=== PATIENT | female | born 1970 | race Two or more races ===

== ENCOUNTER 2020-06-26 08:02 | Outpatient (REF) | payer OTHER, SELFPAY ==
[2020-06-26 18:19] LABS: Alanine Aminotransferase 101 U/L (0-31); Albumin Level 4.6 g/dL (3.5-5.0); Alkaline Phosphatase 189 U/L (39-117); Aspartate Amino Transferase 62 U/L (5-31); Bilirubin Direct 0.2 mg/dL (0.0-0.5); Bilirubin Total 0.4 mg/dL (0.0-1.0); Total Protein 7.9 g/dL (6.5-8.0)
== END 2020-06-26 08:03 | disposition home or self-care (01) ==
LOC: CF 08:02
PROVIDERS: PCP Internal Medicine; Referring Provider Nurse Practitioner Family; Visit Provider Physician Assistant
DX: R10.11 Right upper quadrant pain (principal); K59.09 Other constipation
CPT/HCPCS: 36415; 80076; 84443

== ENCOUNTER 2020-06-28 08:12 | Outpatient (REF) | payer OTHER, SELFPAY ==
[2020-06-28 09:37] LABS: Ferritin 27 ng/mL (10-250)
[2020-06-28 09:54] LABS: Gamma Glutamyl Transpeptidase 230 U/L (7-33)
== END 2020-06-28 08:13 | disposition home or self-care (01) ==
LOC: HO.LAB 08:12
PROVIDERS: PCP Internal Medicine; Visit Provider Physician Assistant
DX: R74.8 Abnormal levels of other serum enzymes (principal)
CPT/HCPCS: 82728; 82977

== ENCOUNTER → 2020-07-20 14:37 | Outpatient (BNVA) | payer OTHER, SELFPAY | PROVIDERS: PCP Internal Medicine; Visit Provider Surgery Vascular Surgery | DX: Z76.89 Persons encountering health services in other specified circumstances (principal) ==

== ENCOUNTER 2020-07-27 10:13 | Outpatient (REF) | payer OTHER, SELFPAY ==
--- NOTE | 2020-07-27 10:18 | US_ITS ---
EXAMINATION: RIGHT and LEFT LOWER EXTREMITY VENOUS ULTRASOUND (Reflux Exam) CLINICAL INDICATION: Varicose veins of the right lower extremity with inflammation. COMPARISON: None. TECHNIQUE: Color flow triplex imaging and compression Doppler was performed to evaluate both the deep and the superficial systems bilaterally. To evaluate the superficial system, the examination was performed in the upright position. Color-flow Doppler ultrasound and compression ultrasound were utilized. In addition, maneuvers were utilized to demonstrate reflux. FINDINGS: 1. DEEP VENOUS ULTRASOUND OF THE RIGHT LOWER EXTREMITY: Respiratory variation, normal compression and augmented flow are noted in the right common femoral vein as well as the right popliteal vein and there is no evidence of deep venous thrombosis at these locations. There is no evidence of reflux in the deep system in either the common femoral vein or the popliteal vein. There is no evidence of a popliteal fossa cyst or popliteal artery aneurysm.. 2. SUPERFICIAL ULTRASOUND WITH DOPPLER OF RIGHT LOWER EXTREMITY: The right great saphenous vein at the saphenofemoral junction measures 8 mm, at the mid thigh 3 mm, wdfly-uru-irge 3 mm, ibmhz-[id number]-ssld 2 mm, at mid calf 1 mm and at the ankle measures 2 mm. There is no reflux demonstrated in the right great saphenous vein. The right small saphenous vein measures 2 mm and shows no reflux. Within the proximal and distal calf there are 2 small perforating veins measuring 2 mm in diameter. 3. DEEP VENOUS ULTRASOUND OF THE LEFT LOWER EXTREMITY: Respiratory variation, normal compression and augmented flow are noted in the left common femoral vein as well as the left popliteal vein and there is no evidence of deep venous thrombosis at these locations. There is no evidence of reflux in the deep system in either the common femoral vein or the popliteal vein. . There is no evidence of a Naomi fossa cyst or popliteal artery aneurysm. 4. SUPERFICIAL ULTRASOUND WITH DOPPLER OF LEFT LOWER EXTREMITY: Left great saphenous vein at the saphenofemoral junction measures 8 mm without reflux, at the mid thigh 1 mm with reflux of 1.8 seconds, eurnn-vlj-gjmc 2 mm with reflux of 2.4 seconds, at the knee reflux of 3.5 seconds, svyqp-jow-ccui 2 mm with no reflux, at mid calf 2 mm without reflux, and at the ankle measures 2 mm without reflux.. The left small saphenous vein measures 3 mm and shows no reflux. There is a varicose vein measuring 3 mm in diameter at the saphenofemoral junction which does not demonstrate reflux within it. US/US venous duplex LE BI IMPRESSION: 1. No evidence of reflux or thrombus in the common femoral veins or popliteal veins bilaterally. 2. Left lower extremity venous insufficiency from the proximal thigh to the knee. 3. No right greater saphenous vein insufficiency.
== END 2020-07-27 10:14 | disposition home or self-care (01) ==
LOC: HO.US 10:13
PROVIDERS: Visit Provider Surgery Vascular Surgery
DX: I83.813 Varicose veins of bilateral lower extremities with pain (principal)
CPT/HCPCS: 93970

== ENCOUNTER → 2020-08-22 12:44 | Outpatient (BNVA) | payer OTHER, SELFPAY | PROVIDERS: PCP Internal Medicine; Visit Provider Surgery Vascular Surgery | DX: Z76.89 Persons encountering health services in other specified circumstances (principal) ==

== ENCOUNTER → 2020-08-23 08:27 | Outpatient (BNVA) | payer OTHER, SELFPAY | PROVIDERS: PCP Internal Medicine; Referring Provider Internal Medicine; Visit Provider Physician Assistant | DX: Z76.89 Persons encountering health services in other specified circumstances (principal) ==

== ENCOUNTER 2020-08-29 12:29 | Emergency (ER) | payer OTHER, SELFPAY ==
[2020-08-29 12:37] VITALS: BP 163/72; PULSE 98; RESP 20; TEMP 37.6; O2SAT 100; BMI 24.7
--- NOTE | 2020-08-29 14:29 | ED.FEMALEGU ---
HPI - Female Genitourinary General Chief complaint: Vaginal Bleeding Stated complaint: Vaginal bleeding, painful urination Time Seen by Provider: 08/29/20 13:58 Source: patient Mode of arrival: ambulatory History of Present Illness HPI Narrative: 50-year-old female with a past medical history of chronic constipation, GERD, irregular menses, migraine headaches, urinary incontinence, presented to ED complaining of dysuria and gross hematuria since this morning. Also reports associated urinary frequency/urgency. Denies taking anticoagulation. Denies abdominal pain, nausea/vomiting/diarrhea/constipation, flank pain, vaginal bleeding or rectal bleeding MD elicited complaint: dysuria Related Data Home Medications Medication Instructions Recorded Confirmed cholecalciferol (vitamin D3) 50 50 mcg PO DAILY 06/20/20 08/23/20 mcg (2,000 unit) tablet docusate sodium 100 mg capsule 100 mg PO DAILY 06/26/20 06/26/20 omega-3 fatty acids 500 mg capsule 500 mg PO DAILY 06/26/20 08/23/20 Previous Rx's Medication Instructions Recorded docusate sodium 100 mg capsule 200 mg PO BEDTIME #60 cap 06/26/20 polyethylene glycol 3350(bulk) See Rx Instructions MISCELLANEOUS 06/26/20 .COMPLEX #1000 g cefuroxime axetil 250 mg PO BID 7 Days #14 tab 08/29/20 phenazopyridine [Pyridium] 100 mg PO TID PRN #6 tab 08/29/20 Allergies Allergy/AdvReac Type Severity Reaction Status Date / Time No Known Allergies Allergy Unknown NOT Verified 07/20/20 14:46 APPLICABLE Review of Systems Review of Systems: Constitutional: No Weight loss, No Fever, No Chills Cardiovascular: No Chest Pain, No SOB Respiratory: No Cough, No Sputum, No Wheezing, No Dyspnea Gastrointestinal: No Nausea, No Vomiting, No Diarrhea, No Constipation, No Abdominal pain Genitourinary: +Dysuria, + Urinary Frequency, + Hematuria, + Urgency, No Flank Pain, + Urinary Flow Changes Musculoskeletal: No joint pain, No Myalgias, No Joint Swelling Skin: No Skin Lesions, No rash Yes all other systems are reviewed and are negative [facility] Past Medical History Attestation statement: The following information was validated with the patient. Medical History Chronic constipation Constipation GERD (gastroesophageal reflux disease) History of positive PPD Hypovitaminosis D Irregular menses Migraine headache with aura RUQ abdominal pain Urinary incontinence Surgical History History of dilation and curettage History of removal of ovarian cyst History of tubal ligation Hx of colonoscopy S/P tendon repair Family History Family History Father Stomach cancer Mother Heart disease Arthritis Elevated cholesterol Diabetes Hypertension Brother No problems noted. Brother No problems noted. Sister No problems noted. Sister No problems noted. Sister No problems noted. Sister No problems noted. Son No problems noted. Son No problems noted. Son No problems noted. Social History Social History Alcohol intake: never Smoking Status: Never smoker Use of substances other than those prescribed or required for medical reasons: No Advance Directives: No Advance Directives Information Provided: Yes Physical Exam Vital Signs: Vital Signs: Last Vital Signs Temp 98.0 F 08/29/20 15:58 Pulse 79 08/29/20 15:58 Resp 18 08/29/20 15:58 BP 123/72 08/29/20 15:58 Pulse Ox 100 08/29/20 15:58 Body Mass Index 24.7 Const: General: cooperative and healthy appearing Orientation/consciousness: patient oriented x3 Limitations: no limitations HENMT: Head: Yes normal to inspection Ears: hearing grossly normal bilaterally General nose exam: Normal external nose present Face and sinus: Yes normal facial exam Eyes: General: appearance normal, both eyes and all related structures EOM: EOMs intact bilaterally Neck: Neck: Yes normal visual inspection Resp: Effort & Inspection: normal respiratory effort Cardio: Rate: regular rate GI: Inspection: Yes normal to inspection Palpation (GI): Soft to palpation, nontender, no guarding and not rigid : General: Yes no CVA tenderness Back/Spine/Pelvis: Back: no CVA tenderness Skin: Rashes: no rashes Wounds: no wounds Neuro: General: patient oriented x3 Extrem: General: Yes normal to inspection Course Course Course Narrative: -leukocytosis of 15.6, H&H stable, renal function WNL > patient does not meet sepsis criteria, is nontoxic, comfortable, in no apparent distress -ALT/alk-phos chronically elevated -UA with blood, not overtly infected > will obtain CTAP to r/o obstruction/stone >> CT AP unremarkable, patient likely with hemorrhagic cystitis, will treat and have follow-up with urology Worrisome signs and symptoms and strict return precautions including labs/imaging results 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 She verbalized understanding feel safe for discharge home MDM - Female Genitourinary MDM Narrative Medical decision making narrative: 50-year-old female with a past medical history of chronic constipation, GERD, irregular menses, migraine headaches, urinary incontinence, presented to ED complaining of dysuria, gross hematuria, urinary frequency/urgency since this morning. On exam low grade temp 99, HR 98 likely from temp, nontoxic appearing, NAD, abdomen soft/nontender, no CVAT. Concern for UTI vs ?Renal stone. Patient denies vaginal/rectal bleeding. Low concern for ovarian torsion/cyst/appendicitis or diverticulitis Low concern for sepsis Plan: Labs, UA, reassess Lab Data Result diagrams: 08/29/20 14:47 08/29/20 14:47 Labs: Lab Results 08/29/20 08/29/20 08/29/20 Range/Units 14:46 14:47 14:47 WBC 15.6 H (4.8-10.8) X10*3/uL RBC 4.78 (4.20-5.50) X10*6/uL Hgb 13.5 (12.0-16.0) g/dl Hct 41.5 (37-47) % MCV 86.8 (80-98) fL MCH 28.2 (27.0-33.0) pg MCHC 32.5 (31.0-35.0) g/dl RDW 13.0 (11.0-16.0) % Plt Count 324 (160-400) X10*3/uL MPV 9.3 L (9.4-12.3) fL Immature Gran % (Auto) 0.3 (0.0-0.4) % Neut % (Auto) 83.9 H (45-73) % Lymph % (Auto) 8.6 L (20-40) % [place] % (Auto) 6.7 (2-11) % Eos % (Auto) 0.2 (0-4) % Baso % (Auto) 0.3 (0-2) % Lymph # (Auto) 1.3 (1.2-4.9) X10*3/uL [place] # (Auto) 1.1 (0.1-1.2) X10*3/uL Eos # (Auto) 0.0 (0.0-0.4) X10*3/uL Baso # (Auto) 0.1 (0.0-0.2) X10*3/uL Abs Immat Gran (auto) 0.05 H (0.00-0.03) X10*3/uL Absolute Neuts (auto) 13.0 H (2.0-8.3) X10*3/uL Absolute Nucleated RBC 0.000 (0.0-0.012) X10*3/uL Nucleated RBC % (auto) 0.0 (0.0-0.2) /100WBC PT 12.6 (10.8-13.0) SEC INR 1.1 (0.9-1.1) APTT 43.5 H (24.1-38.0) SEC Sodium (135-145) mmol/L Potassium (3.3-5.1) mmol/l Chloride (96-108) mmol/L Carbon Dioxide (22-29) mmol/L Anion Gap (12-20) BUN (9-16) mg/dL Creatinine (0.5-1.4) mg/dL Estim Creat Clear Calc Estimated GFR Random Glucose (60-115) mg/dL Calcium (8.4-10.2) mg/dL Total Bilirubin (0.0-1.0) mg/dL Direct Bilirubin (0.0-0.5) mg/dL AST (5-31) U/L ALT (0-31) U/L Alkaline Phosphatase (39-117) U/L Total Protein (6.5-8.0) g/dL Albumin (3.5-5.0) g/dL Urine Color RED Urine Appearance TURBID Urine pH 6.5 (5.0-8.0) Ur Specific [place] 1.025 (1.005-1.025) Urine Protein 3+ H (NEG-TRACE) MG/DL Urine Glucose (UA) NEG (NEG) MG/DL Urine Ketones NEG (NEG) MG/DL Urine Blood 3+ H (NEG) Urine Nitrite NEG (NEG) Ur Leukocyte Esterase NEG (NEG) Urine RBC TNTC H (0) /HPF Urine WBC 0 (0-4) /HPF Ur Squamous Epith Cells NONE /LPF Urine Bacteria 1+ /LPF 08/29/20 Range/Units 14:47 WBC (4.8-10.8) X10*3/uL RBC (4.20-5.50) X10*6/uL Hgb (12.0-16.0) g/dl Hct (37-47) % MCV (80-98) fL MCH (27.0-33.0) pg MCHC (31.0-35.0) g/dl RDW (11.0-16.0) % Plt Count (160-400) X10*3/uL MPV (9.4-12.3) fL Immature Gran % (Auto) (0.0-0.4) % Neut % (Auto) (45-73) % Lymph % (Auto) (20-40) % [place] % (Auto) (2-11) % Eos % (Auto) (0-4) % Baso % (Auto) (0-2) % Lymph # (Auto) (1.2-4.9) X10*3/uL [place] # (Auto) (0.1-1.2) X10*3/uL Eos # (Auto) (0.0-0.4) X10*3/uL Baso # (Auto) (0.0-0.2) X10*3/uL Abs Immat Gran (auto) (0.00-0.03) X10*3/uL Absolute Neuts (auto) (2.0-8.3) X10*3/uL Absolute Nucleated RBC (0.0-0.012) X10*3/uL Nucleated RBC % (auto) (0.0-0.2) /100WBC PT (10.8-13.0) SEC INR (0.9-1.1) APTT (24.1-38.0) SEC Sodium 138 (135-145) mmol/L Potassium 4.1 (3.3-5.1) mmol/l Chloride 104 (96-108) mmol/L Carbon Dioxide 26 (22-29) mmol/L Anion Gap 12 (12-20) BUN 15 (9-16) mg/dL Creatinine 0.74 (0.5-1.4) mg/dL Estim Creat Clear Calc 76.6 Estimated GFR > 60 Random Glucose 93 (60-115) mg/dL Calcium 9.2 (8.4-10.2) mg/dL Total Bilirubin 0.4 (0.0-1.0) mg/dL Direct Bilirubin 0.2 (0.0-0.5) mg/dL AST 28 D (5-31) U/L ALT 35 H (0-31) U/L Alkaline Phosphatase 168 H (39-117) U/L Total Protein 7.7 (6.5-8.0) g/dL Albumin 4.4 (3.5-5.0) g/dL Urine Color Urine Appearance Urine pH (5.0-8.0) Ur Specific [place] (1.005-1.025) Urine Protein (NEG-TRACE) MG/DL Urine Glucose (UA) (NEG) MG/DL Urine Ketones (NEG) MG/DL Urine Blood (NEG) Urine Nitrite (NEG) Ur Leukocyte Esterase (NEG) Urine RBC (0) /HPF Urine WBC (0-4) /HPF Ur Squamous Epith Cells /LPF Urine Bacteria /LPF Discharge Plan Discharge Clinical Impression: Acute hemorrhagic cystitis Patient Disposition: Home, Self-Care Instructions: Urinary Tract Infection in Women (ED) Additional Instructions: Your blood work showed nonspecific markers of infection Your kidney function was normal Your CT scan did not show have any abnormalities Your urine had blood in it, you are likely having what we call hemorrhagic cystitis Ceftin as antibiotic, take as prescribed You need to follow-up with a urologist If her symptoms persist or worsen, bleeding worsens, you develop abdominal pain, nausea/vomiting, or fever return to the ED Your blood work showed nonspecific markers of infection Your kidney function was normal Your CT scan did not show have any abnormalities Your urine had blood in it, you are likely having what we call hemorrhagic cystitis Ceftin as antibiotic, take as prescribed You need to follow-up with a urologist If her symptoms persist or worsen, bleeding worsens, you develop abdominal pain, nausea / vomiting, or fever return to the ED Prescriptions: New cefuroxime axetil 250 mg tablet 250 mg PO BID 7 Days Qty: 14 RF: 0 phenazopyridine [Pyridium] 100 mg tablet 100 mg PO TID PRN (Reason: pain) Qty: 6 RF: 0 No Action cholecalciferol (vitamin D3) 50 mcg (2,000 unit) tablet 50 mcg PO DAILY RF: 0 docusate sodium [DOK] 100 mg capsule 100 mg PO DAILY RF: 0 omega-3 fatty acids 500 mg capsule 500 mg PO DAILY RF: 0 polyethylene glycol 3350(bulk) Powder See Rx Instructions miscellaneous .COMPLEX Qty: 1000 RF: 5 docusate sodium [Colace] 100 mg capsule 200 mg PO BEDTIME Qty: 60 RF: 5 Referrals: Moncho Stock MD [Physician] - 5 days Print Language: Moroccan
[2020-08-29 14:38] VITALS: BP 122/90; PULSE 82; RESP 18; TEMP 37.3; O2SAT 99
--- NOTE | 2020-08-29 14:51 | PC.NURSE ---
Pt states that hematuria and severe dysuria started this am. Urine is gross hematuria. Pt denies use of thinners. Is aware of plan for lab results. NPO for now.
[2020-08-29 14:54] LABS: MANUAL DIFF FLAG NO
[2020-08-29 14:56] LABS: Basophils Absolute Auto 0.1 X10*3/uL (0.0-0.2); Basophils Percent Auto 0.3 % (0-2); Eosinophils Percent Auto 0.2 % (0-4); Hematocrit 41.5 % (37-47); Hemoglobin 13.5 g/dl (12.0-16.0); Imm Gran Abs Auto 0.05 X10*3/uL (0.00-0.03); Imm Gran Pct Auto 0.3 % (0.0-0.4); Lymphocytes Absolute Auto 1.3 X10*3/uL (1.2-4.9); Lymphocytes Percent Auto 8.6 % (20-40); Mean Corpuscular HGB Conc 32.5 g/dl (31.0-35.0); Mean Corpuscular Hemoglobin 28.2 pg (27.0-33.0); Mean Corpuscular Volume 86.8 fL (80-98); Mean Platelet Volume 9.3 fL (9.4-12.3); Monocytes Absolute Auto 1.1 X10*3/uL (0.1-1.2); Monocytes Percent Auto 6.7 % (2-11); Neutrophils Percent Auto 83.9 % (45-73); Platelet Count 324 X10*3/uL (160-400); Red Blood Count 4.78 X10*6/uL (4.20-5.50); White Blood Count 15.6 X10*3/uL (4.8-10.8)
[2020-08-29 15:00] LABS: INTERNATIONAL NORM RATIO 1.1 (0.9-1.1); Prothrombin Time 12.6 SEC (10.8-13.0)
[2020-08-29 15:02] LABS: Partial Thromboplastin Time 43.5 SEC (24.1-38.0)
[2020-08-29 15:09] LABS: Glucose Urine UA NEG (NEG); Leukocyte Esterase Urine NEG (NEG); Nitrite Urine NEG (NEG); PH 6.5 (5.0-8.0); Specific Gravity - Urine 1.025 (1.005-1.025); Urine Blood 3+ (NEG); Urine Ketones NEG (NEG); Urine Protein 3+ MG/DL (NEG-TRACE)
[2020-08-29 15:12] LABS: Appearance Urine TURBID; Color Urine RED
[2020-08-29 15:13] LABS: Bacteria Urine 1+ /LPF; RBC Urine TNTC /HPF (0); WBC Urine 0 /HPF (0-4)
[2020-08-29 15:21] LABS: Alanine Aminotransferase 35 U/L (0-31); Albumin Level 4.4 g/dL (3.5-5.0); Alkaline Phosphatase 168 U/L (39-117); Anion Gap 12 (12-20); Aspartate Amino Transferase 28 U/L (5-31); Bilirubin Direct 0.2 mg/dL (0.0-0.5); Bilirubin Total 0.4 mg/dL (0.0-1.0); Blood Urea Nitrogen 15 mg/dL (9-16); Calcium 9.2 mg/dL (8.4-10.2); Carbon Dioxide 26 mmol/L (22-29); Chloride 104 mmol/L (96-108); Creatinine Clr Calc Pharmacy 76.6; Estimated Glomerular Filt Rate > 60; Glucose Random 93 mg/dL (60-115); Potassium 4.1 mmol/l (3.3-5.1); Sodium 138 mmol/L (135-145); Total Protein 7.7 g/dL (6.5-8.0)
--- NOTE | 2020-08-29 15:32 | CT_ITS ---
EXAMINATION: CT ABDOMEN AND PELVIS WITHOUT CONTRAST CLINICAL INFORMATION: Gross hematuria COMPARISON: None. TECHNIQUE: Multidetector volumetric imaging was performed from the superior aspect of the liver through the pubic symphysis. Sagittal and coronal reformatted images were obtained on the technologist's workstation. This CT examination was performed using dose optimization techniques as appropriate, variously including the following: *Automated exposure control *Adjustment of mA and/or kV according to patient size (this includes techniques or standardized protocols for targeted exams where dose is matched to indication/reason for exam; i.e. extremities or head) *Use of iterative reconstruction technique DLP: 544 mGy-cm FINDINGS: LUNG BASES: The visualized lung bases are unremarkable. LIVER, GALLBLADDER, AND BILIARY TREE: The liver is normal in size, shape, and attenuation. No focal hepatic lesion or biliary ductal dilatation is present. The gallbladder is unremarkable with no evidence of radiopaque gallstones, gallbladder wall thickening, or obvious pericholecystic inflammatory changes. PANCREAS: Unremarkable. SPLEEN: Unremarkable. ADRENAL GLANDS: Unremarkable. KIDNEYS AND URETERS: The kidneys are normal in size, shape, and attenuation. No hydronephrosis, hydroureter, or calculi seen. No perinephric stranding. There is a 6 mm hypodensity lower pole right kidney likely small cyst. BLADDER: Unremarkable. GASTROINTESTINAL TRACT: The colon and small bowel loops are nondistended. Appendix is normal caliber. The stomach is nondistended. ABDOMINAL WALL: No significant hernia is appreciated. LYMPH NODES: Normal. VASCULAR: Unremarkable. PELVIC VISCERA: There is no free air or free fluid. The uterus is anteverted and appears unremarkable. There is no adnexal mass seen. OSSEOUS STRUCTURES: No lytic or sclerotic process seen. CT/CT abdomen pelvis wo con IMPRESSION: Unremarkable CT abdomen and pelvis without contrast.
[2020-08-29 15:58] VITALS: BP 123/72; PULSE 79; RESP 18; TEMP 36.7; O2SAT 100
== END 2020-08-29 17:08 | disposition home or self-care (01) ==
PROVIDERS: Physician Assistant; Emergency Provider Internal Medicine; PCP Internal Medicine
DX: N30.00 Acute cystitis without hematuria (principal); R30.0 Dysuria; N93.9 Abnormal uterine and vaginal bleeding, unspecified; Z79.899 Other long term (current) drug therapy
CPT/HCPCS: 36415; 74176; 80048; 80076; 81001; 81003; 85025; 85610; 85730; 99284

== ENCOUNTER 2020-09-04 06:52 | Outpatient (REF) | payer OTHER, SELFPAY ==
[2020-09-04 08:27] LABS: HBc Num1 0.08 S/CO (0.00-0.79); Hepatitis B Core Antibody Nonreactive (Nonreactive); ~Hepatitis B Surface Antibody REACTIVE (Nonreactive); ~Hepatitis C Antibody Nonreactive (Nonreactive)
[2020-09-04 08:28] LABS: HBsAGNum1 0.19 S/CO (0.00-0.99); Hepatitis B Surface Antigen Negative (Negative)
[2020-09-05 13:18] LABS: Mitochondrial Antibodies NEGATIVE (NEGATIVE)
[2020-09-05 16:22] LABS: Anti Nuclear Antibody Screen NEGATIVE (NEGATIVE)
[2020-09-06 09:21] LABS: Hepatitis A Antibody IgM 0.57 Index (0-0.79); ~Hepatitis A Antibody IgM Nonreactive (Nonreactive)
[2020-09-10 01:07] LABS: Smooth Muscle Antibody <20 U (<20)
== END 2020-09-04 06:53 | disposition home or self-care (01) ==
LOC: HO.LAB 06:52
PROVIDERS: PCP Internal Medicine; Visit Provider Physician Assistant
DX: R74.8 Abnormal levels of other serum enzymes (principal)
CPT/HCPCS: 36415; 86038; 86039; 86255; 86256; 86704; 86706; 86709; 86803; 87340

== ENCOUNTER → 2020-09-08 13:22 | Outpatient (BNVA) | payer OTHER, SELFPAY | PROVIDERS: PCP Internal Medicine; Visit Provider Urology | DX: N39.0 Urinary tract infection, site not specified (principal) | CPT/HCPCS: 81002 ==

== ENCOUNTER 2020-09-29 07:22 | Outpatient (REF) | payer OTHER, SELFPAY ==
[2020-09-29 08:11] LABS: Glucose Urine UA NEG (NEG); Leukocyte Esterase Urine NEG (NEG); Nitrite Urine NEG (NEG); Specific Gravity - Urine <= 1.005 (1.005-1.025); Urine Blood 1+ (NEG); Urine Ketones NEG (NEG); Urine Protein NEG (NEG-TRACE)
[2020-09-29 08:12] LABS: Appearance Urine CLEAR; Color Urine YELLOW
[2020-09-29 08:41] LABS: Squamous Epithelial Cell Urine TRACE /LPF; WBC Urine 0-2 /HPF (0-4)
== END 2020-09-29 07:23 | disposition home or self-care (01) ==
LOC: HO.LAB 07:22
PROVIDERS: PCP Nurse Practitioner Family; Referring Provider Nurse Practitioner Family; Visit Provider Physician Assistant
DX: R10.11 Right upper quadrant pain (principal); N39.0 Urinary tract infection, site not specified
CPT/HCPCS: 81001; 81003; 87338

== ENCOUNTER → 2020-10-05 08:02 | Outpatient (BNVA) | payer OTHER, SELFPAY | PROVIDERS: PCP Nurse Practitioner Family; Visit Provider Physician Assistant | DX: Z76.89 Persons encountering health services in other specified circumstances (principal) ==

== ENCOUNTER 2020-10-18 10:11 | Outpatient (REF) | payer OTHER, SELFPAY | END 2020-10-18 10:12 | disposition home or self-care (01) | LOC: HO.LAB 10:11 | PROVIDERS: Visit Provider Internal Medicine | DX: Z20.822 Contact with and (suspected) exposure to COVID-19 (principal) | CPT/HCPCS: 36415; C9803; U0003 ==

== ENCOUNTER 2020-10-30 09:20 | Outpatient (REF) | payer OTHER, SELFPAY | END 2020-10-30 09:21 | disposition home or self-care (01) | LOC: HO.LAB 09:20 | PROVIDERS: Visit Provider Internal Medicine | DX: Z20.822 Contact with and (suspected) exposure to COVID-19 (principal) | CPT/HCPCS: 36415; C9803; U0003; U0005 ==

== ENCOUNTER 2020-11-20 08:19 | Outpatient (REF) | payer OTHER, SELFPAY | END 2020-11-20 08:20 | disposition home or self-care (01) | LOC: HO.LNP 08:19 | PROVIDERS: Visit Provider Physician Assistant | DX: A04.8 Other specified bacterial intestinal infections (principal) | CPT/HCPCS: 87338 ==

== ENCOUNTER → 2020-11-30 09:11 | Outpatient (BNVA) | payer OTHER, SELFPAY | PROVIDERS: PCP Internal Medicine; Visit Provider Physician Assistant ==

== ENCOUNTER → 2021-01-30 14:17 | Outpatient (BNVA) | payer OTHER, SELFPAY | PROVIDERS: PCP Internal Medicine; Visit Provider Physician Assistant ==

== ENCOUNTER → 2021-04-03 11:27 | Outpatient (BNVA) | payer OTHER, SELFPAY | PROVIDERS: PCP Internal Medicine; Visit Provider Physician Assistant ==

== ENCOUNTER 2021-05-05 07:23 | Outpatient (REF) | payer OTHER, SELFPAY ==
[2021-05-05 07:48] LABS: MANUAL DIFF FLAG NO
[2021-05-05 08:02] LABS: Basophils Absolute Auto 0.1 X10*3/uL (0.0-0.2); Eosinophils Absolute Auto 0.1 X10*3/uL (0.0-0.4); Eosinophils Percent Auto 2.2 % (0-4); Hematocrit 42.1 % (37-47); Hemoglobin 13.6 g/dl (12.0-16.0); Imm Gran Abs Auto 0.01 X10*3/uL (0.00-0.03); Imm Gran Pct Auto 0.2 % (0.0-0.4); Lymphocytes Absolute Auto 1.7 X10*3/uL (1.2-4.9); Lymphocytes Percent Auto 34.1 % (20-40); Mean Corpuscular HGB Conc 32.3 g/dl (31.0-35.0); Mean Corpuscular Hemoglobin 27.9 pg (27.0-33.0); Mean Corpuscular Volume 86.4 fL (80-98); Mean Platelet Volume 9.4 fL (9.4-12.3); Monocytes Absolute Auto 0.5 X10*3/uL (0.1-1.2); Monocytes Percent Auto 9.3 % (2-11); Neutrophils Absolute Auto 2.7 X10*3/uL (2.0-8.3); Neutrophils Percent Auto 53.2 % (45-73); Platelet Count 347 X10*3/uL (160-400); Red Blood Count 4.87 X10*6/uL (4.20-5.50); Red Cell Distribution Width 12.9 % (11.0-16.0); White Blood Count 5.1 X10*3/uL (4.8-10.8)
[2021-05-05 08:05] LABS: Alanine Aminotransferase 26 U/L (0-31); Albumin Level 4.4 g/dL (3.5-5.0); Alkaline Phosphatase 141 U/L (39-117); Anion Gap 11 (12-20); Aspartate Amino Transferase 23 U/L (5-31); Bilirubin Total 0.6 mg/dL (0.0-1.0); Blood Urea Nitrogen 13 mg/dL (9-16); Calcium 9.8 mg/dL (8.4-10.2); Carbon Dioxide 27 mmol/L (22-29); Chloride 107 mmol/L (96-108); Cholesterol 205 mg/dL; Estimated Glomerular Filt Rate > 60; Glucose Fasting 92 mg/dL (60-99); HDL Cholesterol 52 mg/dL; LDL Cholesterol Calculated 132 mg/dl; Potassium 4.2 mmol/L (3.3-5.1); Sodium 141 mmol/L (135-145); Total Protein 7.6 g/dL (6.5-8.0); Triglycerides 109 mg/dL
[2021-05-09 16:01] LABS: Vitamin D 25-OH, D2 <4 ng/mL; Vitamin D 25-OH, D3 24 ng/mL; Vitamin D 25-OH, Total 24 ng/mL (30-100)
== END 2021-05-05 07:24 | disposition home or self-care (01) ==
LOC: HO.LAB 07:23
PROVIDERS: PCP Internal Medicine; Visit Provider Internal Medicine
DX: E55.9 Vitamin D deficiency, unspecified (principal); K59.09 Other constipation; D64.9 Anemia, unspecified; Z83.3 Family history of diabetes mellitus
CPT/HCPCS: 36415; 80053; 80061; 82306; 85025

== ENCOUNTER 2021-08-07 16:24 | Outpatient (REF) | payer OTHER, SELFPAY ==
--- NOTE | ~2021-08-07 | MM_ITS ---
EXAMINATION: MM SCREENING DIGITAL BREAST TOMOSYNTHESIS, BILATERAL CLINICAL INFORMATION: Screening. Asymptomatic. The lifetime risk of breast cancer based on the Tyrer-Cuzick Model is 5%. COMPARISON: Mammography: 05/10/2020, 09/10/2019, 03/08/2019, 01/13/2018 TECHNIQUE: Digital breast tomosynthesis is performed in both the craniocaudal and mediolateral oblique views along with computer-aided detection (CAD). Synthesized 2D images are generated from the tomosynthesis. FINDINGS: There are scattered areas of fibroglandular density (ACR BI-RADS breast composition Category b). There are no significant masses, abnormal calcifications, or other abnormalities. MM/MM tomosynthesis screening BI IMPRESSION: No mammographic evidence of malignancy. ASSESSMENT: BI-RADS 1: Negative RECOMMENDATION: Routine annual mammography screening. This patient's information was entered into a reminder system with a target due date for their next mammogram.
== END 2021-08-07 16:25 | disposition home or self-care (01) ==
LOC: HO.MAMMO 16:24
PROVIDERS: PCP Internal Medicine; Visit Provider Advanced Practice Midwife
DX: Z12.31 Encounter for screening mammogram for malignant neoplasm of breast (principal)
CPT/HCPCS: 77063; 77067

== ENCOUNTER 2021-11-12 09:02 | Outpatient (REF) | payer OTHER, SELFPAY ==
--- NOTE | ~2021-11-12 | XR_ITS ---
EXAMINATION: XR ABDOMEN KUB CLINICAL INDICATION: Right flank pain x 3 months COMPARISON: None TECHNIQUE: AP view of the abdomen. FINDINGS: There is moderate stool in the colon without any significant distention. The small bowel loops are normal caliber. No radiopaque renal or gallbladder calculi seen. There is no organomegaly. No gross bony abnormality. XR/XR KUB IMPRESSION: Mild constipation.
== END 2021-11-12 09:03 | disposition home or self-care (01) ==
LOC: HO.XRAY 09:02
PROVIDERS: PCP Internal Medicine; Visit Provider Internal Medicine
DX: N20.0 Calculus of kidney (principal)
CPT/HCPCS: 74018

== ENCOUNTER → 2021-12-03 13:48 | Outpatient (BNVA) | payer OTHER, SELFPAY | PROVIDERS: PCP Internal Medicine; Referring Provider Internal Medicine; Visit Provider Physician Assistant | DX: K59.09 Other constipation (principal); R10.31 Right lower quadrant pain; Z79.899 Other long term (current) drug therapy | CPT/HCPCS: 99212 ==

== ENCOUNTER 2021-12-17 09:26 | Emergency (ER) | payer OTHER, SELFPAY ==
[2021-12-17 10:30] VITALS: BP 146/59; PULSE 70; RESP 14; TEMP 36.9; O2SAT 100
--- NOTE | 2021-12-17 10:36 | ED_ITS ---
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 Mode of arrival: ambulatory Limitations: no limitations History of Present Illness MD elicited complaint: cough, nasal congestion, sinus pain and other (headache) Onset (ago): day(s) (2) Consistency: constant Severity: moderate Description of mucous: clear Able to tolerate fluids by mouth: Yes Exacerbating factors: other (movement) Relieving factors: nothing Associated symptoms: headache and cough Treatments prior to arrival: acetaminophen Related Data Previous Rx's Medication Instructions Recorded docusate sodium 100 mg capsule 200 mg PO BEDTIME #60 cap 04/03/21 (Colace) methylcellulose (laxative) 500 mg 500 mg PO BID #60 tab 04/03/21 tablet (Citrucel) cholecalciferol (vitamin D3) 50 50 mcg PO DAILY 90 Days #90 tab 05/01/21 mcg (2,000 unit) tablet clotrimazole-betamethasone 1 1 appl TOPICAL BID 14 Days #45 g 08/09/21 %-0.05 % topical cream simethicone 125 mg chewable tablet 125 mg PO BID-TID PRN #90 tab 12/03/21 (Gas-X Extra Strength) amoxicillin 875 mg-potassium 1 tab PO BID #14 tab 12/17/21 clavulanate 125 mg tablet Allergies Allergy/AdvReac Type Severity Reaction Status Date / Time No Known Allergies Allergy Unknown NOT Verified 12/03/21 13:53 APPLICABLE Review of Systems Review of Systems: Constitutional : No Fever, pos Chills, No Fatigue ENT/Mouth : No sore throat, No Rhinorrhea, pos nasal congestion, pos sinus pain Eyes: No Eye Pain, No Swelling, No Redness Cardiovascular : No Chest Pain, No SOB, No Dyspnea on Exertion Respiratory : pos Cough, No Sputum Gastrointestinal : No Nausea, No Vomiting, No Diarrhea, No abdominal Pain Genitourinary : No Dysuria, No Urinary Frequency, No Hematuria, Musculoskeletal : No joint pain, No Myalgias, No Joint Swelling Skin : No Skin Lesions, No rash Neuro : No Weakness, No Numbness, No Dizziness, positive Headache Psych : No Anxiety/Panic, No Depression Heme/Lymph: No Bruising, No Bleeding,No Lymphadenopathy Endocrine : No Polyuria, No Polydipsia All other systems reviewed and are negative PMFSH Past Medical History Attestation statement: The following information was validated with the patient. Medical History Abscess of axilla, left Chronic constipation Constipation Family history of diabetes mellitus GERD (gastroesophageal reflux disease) Hand numbness History of positive PPD Hospital discharge follow-up Hypovitaminosis D Incontinence Irregular menses Migraine headache with aura Overactive bladder Recurrent UTI RUQ abdominal pain Urinary incontinence Urticaria Surgical History History of dilation and curettage History of removal of ovarian cyst History of tubal ligation Hx of colonoscopy S/P tendon repair Family History Family History Father Stomach cancer Mother Heart disease Arthritis Elevated cholesterol Diabetes Hypertension Brother No problems noted. Brother No problems noted. Sister No problems noted. Sister No problems noted. Sister No problems noted. Sister No problems noted. Son No problems noted. Son No problems noted. Son No problems noted. Social History Social History Household Members: Spouse and Children Housing: Apartment Alcohol intake: never Patient Tobacco Use Status: Never used Tobacco e-Cigarette/Vaping Use: Never Used Second Hand Smoke Exposure: No Advance Directives: No Advance Directives Information Provided: No Patient : No service: No Current occupational status: employed Current occupational exposures/hazards: No Physical Exam Vital Signs: Vital Signs: Last Vital Signs Temp 98.4 F 12/17/21 10:30 Pulse 70 12/17/21 10:30 Resp 16 12/17/21 10:43 BP 146/59 H 12/17/21 10:30 Pulse Ox 97 12/17/21 10:43 BMI result Body Mass Index 29.2 Appearance: Alert. Oriented X3. No acute distress. Eyes: Pupils equal, round and reactive to light. ENT: Pharynx normal. Bilateral max sinus ttp Neck: Normal inspection. Neck supple. no meningeal signs CVS: Normal heart rate and rhythm. Pulses normal. Respiratory: No respiratory distress. Breath sounds normal. Abdomen: Soft and non-tender. Skin: Skin warm and dry. Normal skin color. Normal skin turgor. Extremities: No lower extremity edema. No calf ttp Neuro: Oriented X 3. No motor deficit. No sensory deficit. 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 PO motrin suspect either viral syndrome or sinusitis. Dispo per results and findings. Lab Data Labs: Lab Results 12/17/21 12/17/21 Range/Units 10:57 10:57 COVID-19 (SELENA) Negative (Negative) COVID-19 Clin Com See Note Influenza Type A (DARIN) Negative (Negative) Influenza Type B (DARIN) Negative (Negative) Influenza A & B Note See Note Discharge Plan Discharge Clinical Impression: Sinusitis Qualifiers: Sinusitis location: maxillary Chronicity: acute Recurrence: non-recurrent Qualified Code(s): J01.00 - Acute maxillary sinusitis, unspecified Patient Disposition: Home, Self-Care Instructions: Sinusitis (ED) Additional Instructions: return to ED for any worsening symptoms or concerns NEGATIVE FLU NEGATIVE COVID Prescriptions: New amoxicillin-pot clavulanate 875-125 mg tablet 1 tab PO BID Qty: 14 0RF No Action cholecalciferol (vitamin D3) 50 mcg (2,000 unit) tablet 50 mcg PO DAILY 90 Days Qty: 90 3RF clotrimazole-betamethasone 1-0.05 % cream 1 appl topical BID 14 Days Qty: 45 0RF docusate sodium [Colace] 100 mg capsule 200 mg PO BEDTIME Qty: 60 5RF Citrucel 500 mg tablet 500 mg PO BID Qty: 60 5RF simethicone [Gas-X Extra Strength] 125 mg tablet,chewable 125 mg PO BID-TID PRN (Reason: abdominal distention) Qty: 90 1RF Stand Alone Forms: Work/School Release Interventions: ED Discharge Assessment Last Done: 12/17/21 11:35 Discharge Date/Time: 12/17/21 11:36 Print Language: Belarusian
[2021-12-17 10:43] VITALS: RESP 16; O2SAT 97; BMI 29.2
[2021-12-17] MEDS: Ibuprofen 600 MG TABLET PO (11:08)
[2021-12-17 11:17] LABS: Influenza A Negative (Negative); Influenza B2 Negative (Negative)
[2021-12-17 11:19] LABS: COVID-19 Test Negative (Negative)
== END 2021-12-17 11:36 | disposition home or self-care (01) ==
PROVIDERS: Emergency Provider Emergency Medicine; PCP Internal Medicine
DX: J01.00 Acute maxillary sinusitis, unspecified (principal); Z20.822 Contact with and (suspected) exposure to COVID-19
CPT/HCPCS: 87502; 87635; 99283

== ENCOUNTER 2021-12-19 09:55 | Outpatient (REF) | payer OTHER, SELFPAY ==
--- NOTE | ~2021-12-19 | XR_ITS ---
EXAMINATION: XR CHEST CLINICAL INFORMATION: Cough COMPARISON: November 23, 2019 TECHNIQUE: 2 views of the chest were obtained. FINDINGS: No significant abnormality is noted involving the heart, lungs, mediastinum, bony thorax or soft tissues. XR/XR chest 2V IMPRESSION: No acute disease.
== END 2021-12-19 09:56 | disposition home or self-care (01) ==
LOC: HO.XRAY 09:55
PROVIDERS: PCP Internal Medicine; Visit Provider Internal Medicine Pulmonary Disease
DX: R05.9 Cough, unspecified (principal)
CPT/HCPCS: 71046

== ENCOUNTER 2022-01-10 13:19 | Outpatient (REF) | payer OTHER, SELFPAY ==
[2022-01-10 14:00] LABS: MANUAL DIFF FLAG NO
[2022-01-10 14:43] LABS: Basophils Percent Auto 0.5 % (0-2); Eosinophils Absolute Auto 0.3 X10*3/uL (0.0-0.4); Eosinophils Percent Auto 3.8 % (0-4); Hematocrit 40.4 % (37.0-47.0); Hemoglobin 12.9 g/dl (12.0-16.0); Imm Gran Abs Auto 0.03 X10*3/uL (0.00-0.03); Imm Gran Pct Auto 0.4 % (0.0-0.4); Lymphocytes Absolute Auto 1.9 X10*3/uL (1.2-4.9); Lymphocytes Percent Auto 24.7 % (20-40); Mean Corpuscular HGB Conc 31.9 g/dl (31.0-35.0); Mean Corpuscular Hemoglobin 27.6 pg (27.0-33.0); Mean Corpuscular Volume 86.3 fL (80.0-98.0); Mean Platelet Volume 9.8 fL (9.4-12.3); Monocytes Absolute Auto 0.7 X10*3/uL (0.1-1.2); Monocytes Percent Auto 9.6 % (2-11); Neutrophils Absolute Auto 4.7 x10*3/uL (2.0-8.3); Platelet Count 326 X10*3/uL (160-400); Red Blood Count 4.68 X10*6/uL (4.20-5.50); Red Cell Distribution Width 13.3 % (11.0-16.0); White Blood Count 7.7 X10*3/uL (4.8-10.8)
[2022-01-12 13:46] LABS: Rast Allergen SEE NOTES
== END 2022-01-10 13:20 | disposition home or self-care (01) ==
LOC: HO.LAB 13:19
PROVIDERS: PCP Internal Medicine; Visit Provider Internal Medicine Pulmonary Disease
DX: J30.9 Allergic rhinitis, unspecified (principal); J32.9 Chronic sinusitis, unspecified; R05.9 Cough, unspecified
CPT/HCPCS: 36415; 82785; 85025; 86003

== ENCOUNTER → 2022-02-06 11:12 | Outpatient (BNVA) | payer OTHER, SELFPAY | PROVIDERS: PCP Internal Medicine; Visit Provider Internal Medicine Pulmonary Disease | DX: J30.9 Allergic rhinitis, unspecified (principal) ==

== ENCOUNTER 2022-08-09 07:36 | Outpatient (REF) | payer OTHER, SELFPAY ==
--- NOTE | ~2022-08-09 | MM_ITS ---
EXAMINATION: MM SCREENING DIGITAL BREAST TOMOSYNTHESIS, BILATERAL CLINICAL INFORMATION: Screening. Asymptomatic. The lifetime risk of breast cancer based on the Tyrer-Cuzick Model is 6%. COMPARISON: Mammography: 08/07/2021, 05/10/2020, 09/10/2019 TECHNIQUE: Digital breast tomosynthesis is performed in both the craniocaudal and mediolateral oblique views along with computer-aided detection (CAD). Synthesized 2D images are generated from the tomosynthesis. FINDINGS: There are scattered areas of fibroglandular density (ACR BI-RADS breast composition Category b). There are no significant masses, abnormal calcifications, or other abnormalities. Parenchymal pattern is similar to prior studies. The axilla and skin contours are unremarkable. MM/MM tomosynthesis screening BI IMPRESSION: No mammographic evidence of malignancy. ASSESSMENT: BI-RADS 1: Negative RECOMMENDATION: Routine annual mammography screening. This patient's information was entered into a reminder system with a target due date for their next mammogram.
== END 2022-08-09 07:37 | disposition home or self-care (01) ==
LOC: HO.MAMMO 07:36
PROVIDERS: PCP Internal Medicine; Visit Provider Advanced Practice Midwife
DX: Z12.31 Encounter for screening mammogram for malignant neoplasm of breast (principal)
CPT/HCPCS: 77063; 77067

== ENCOUNTER 2022-10-30 11:27 | Outpatient (REF) | payer OTHER, SELFPAY ==
[2022-10-30 12:14] LABS: Influenza A PCR NEGATIVE (Negative); Influenza B PCR NEGATIVE (Negative); Resp Syncy Virus RNA Qual PCR NEGATIVE (Negative); SARS COV2 PCR INHOUSE NEGATIVE (Negative)
== END 2022-10-30 11:28 | disposition home or self-care (01) ==
LOC: HO.LNP 11:27
PROVIDERS: Visit Provider Nurse Practitioner Family
DX: R09.89 Other specified symptoms and signs involving the circulatory and respiratory systems (principal); Z20.822 Contact with and (suspected) exposure to COVID-19
CPT/HCPCS: 0241U

== ENCOUNTER 2022-11-09 07:08 | Outpatient (REF) | payer OTHER, MEDICAID, SELFPAY ==
[2022-11-09 07:28] LABS: MANUAL DIFF FLAG NO
[2022-11-09 08:07] LABS: Basophils Absolute Auto 0.1 X10*3/uL (0.0-0.2); Basophils Percent Auto 1.1 % (0-2); Eosinophils Absolute Auto 0.2 X10*3/uL (0.0-0.4); Eosinophils Percent Auto 3.4 % (0-4); Hematocrit 42.6 % (37.0-47.0); Hemoglobin 13.4 g/dl (12.0-16.0); Imm Gran Abs Auto 0.01 X10*3/uL (0.00-0.03); Imm Gran Pct Auto 0.2 % (0.0-0.4); Lymphocytes Absolute Auto 1.8 X10*3/uL (1.2-4.9); Lymphocytes Percent Auto 33.2 % (20-40); Mean Corpuscular HGB Conc 31.5 g/dl (31.0-35.0); Mean Corpuscular Volume 85.7 fL (80.0-98.0); Mean Platelet Volume 9.3 fL (9.4-12.3); Monocytes Absolute Auto 0.5 X10*3/uL (0.1-1.2); Monocytes Percent Auto 9.5 % (2-11); Neutrophils Absolute Auto 2.9 x10*3/uL (2.0-8.3); Neutrophils Percent Auto 52.6 % (45-73); Platelet Count 376 X10*3/uL (160-400); Red Blood Count 4.97 X10*6/uL (4.20-5.50); Red Cell Distribution Width 12.6 % (11.0-16.0); White Blood Count 5.6 X10*3/uL (4.8-10.8)
[2022-11-09 08:40] LABS: Alanine Aminotransferase 28 U/L (0-31); Albumin Level 4.1 g/dL (3.5-5.0); Alkaline Phosphatase 175 U/L (39-117); Anion Gap 13 (12-20); Aspartate Amino Transferase 21 U/L (5-31); Bilirubin Total 0.6 mg/dL (0.0-1.0); Blood Urea Nitrogen 16 mg/dL (9-16); Calcium 9.6 mg/dL (8.4-10.2); Carbon Dioxide 26 mmol/L (22-29); Chloride 107 mmol/L (96-108); Cholesterol 184 mg/dL; Estimated Glomerular Filt Rate > 60; Glucose Fasting 91 mg/dL (60-99); HDL Cholesterol 45 mg/dL; LDL Cholesterol Calculated 127 mg/dl; Potassium 4.5 mmol/L (3.3-5.1); Sodium 141 mmol/L (135-145); Total Protein 7.3 g/dL (6.5-8.0); Triglycerides 63 mg/dL
[2022-11-09 08:48] LABS: Vitamin D 25-OH Total 21.9 ng/mL (>30)
== END 2022-11-09 07:09 | disposition home or self-care (01) ==
LOC: HO.LAB 07:08
PROVIDERS: PCP Internal Medicine; Visit Provider Internal Medicine
DX: Z00.00 Encounter for general adult medical examination without abnormal findings (principal); E55.9 Vitamin D deficiency, unspecified; J30.9 Allergic rhinitis, unspecified; E78.5 Hyperlipidemia, unspecified
CPT/HCPCS: 36415; 80053; 80061; 82306; 85025

== ENCOUNTER 2022-11-15 12:49 | Outpatient (REF) | payer OTHER, MEDICAID, SELFPAY ==
[2022-11-18 04:14] LABS: Syphilis Screen Nonreactive (Nonreactive)
[2022-11-18 04:20] LABS: HBc Num1 0.11 S/CO (0.00-0.79); HIV AB/AG Nonreactive (Nonreactive); HIV Num 1 0.07 S/CO (0.00-0.99); Hepatitis B Core Antibody Nonreactive (Nonreactive); ~HepC Num1 0.13 S/CO (0.00-0.79); ~Hepatitis C Antibody Nonreactive (Nonreactive)
== END 2022-11-15 12:50 | disposition home or self-care (01) ==
LOC: HO.LAB 12:49
PROVIDERS: PCP Internal Medicine; Visit Provider Advanced Practice Midwife
DX: Z11.4 Encounter for screening for human immunodeficiency virus [HIV] (principal); Z20.2 Contact with and (suspected) exposure to infections with a predominantly sexual mode of transmission
CPT/HCPCS: 36415; 86704; 86780; 86803; 87389

== ENCOUNTER 2022-11-15 13:45 | Outpatient (REF) | payer OTHER, MEDICAID, SELFPAY ==
[2022-11-15 18:50] LABS: CT PCR NOT DETECTED (Not Detect.); NG PCR NOT DETECTED (Not Detect.)
[2022-11-20 11:43] LABS: HPV mRNA E6/E7 rflx Not Detected (Not Detected)
== END 2022-11-15 13:46 | disposition home or self-care (01) ==
LOC: HO.LNP 13:45
PROVIDERS: Visit Provider Advanced Practice Midwife
DX: Z01.419 Encounter for gynecological examination (general) (routine) without abnormal findings (principal); Z11.51 Encounter for screening for human papillomavirus (HPV); Z20.2 Contact with and (suspected) exposure to infections with a predominantly sexual mode of transmission
CPT/HCPCS: 0353U; 87624; 88142

== ENCOUNTER → 2022-11-28 09:21 | Outpatient (BNVA) | payer OTHER, MEDICAID, SELFPAY | PROVIDERS: PCP Internal Medicine; Visit Provider Internal Medicine Pulmonary Disease | DX: Z13.89 Encounter for screening for other disorder (principal) ==

== ENCOUNTER 2023-01-14 13:45 | Outpatient (REF) | payer OTHER, MEDICAID, SELFPAY ==
--- NOTE | ~2023-01-14 | US_ITS ---
EXAMINATION: US EXTREMITY NON-VASCULAR AXILLA, LEFT CLINICAL INFORMATION: Left axillary swelling, mass and lump. COMPARISON: None. TECHNIQUE: Using a linear transducer with grayscale and color modalities, ultrasound examination was performed of the left axillary region. FINDINGS: The cutaneous, subcutaneous, muscular and fascial planes are unremarkable. In the subdermal region, a 9 x 8 x 3 mm hypoechoic density is seen. There is no definite draining sinus track. There is no associated color Doppler flow. No foreign body is seen. US/US extremity nonvascular IMPRESSION: A 9 mm hypoechoic subdermal mass is seen within the left axilla, corresponding with the palpable finding at that location. This may represent a small epidermal inclusion cyst or a non-pathologically enlarged lymph node. Recommend management on a clinical basis. Consider short-term follow-up ultrasound imaging to ensure regression/resolution, if of continued clinical concern.
== END 2023-01-14 13:46 | disposition home or self-care (01) ==
LOC: HO.US 13:45
PROVIDERS: PCP Internal Medicine; Visit Provider Nurse Practitioner Family
DX: R22.30 Localized swelling, mass and lump, unspecified upper limb (principal)
CPT/HCPCS: 76882

== ENCOUNTER 2023-07-03 16:05 | Outpatient (AMB) | payer OTHER, MEDICAID, SELFPAY ==
--- NOTE | 2023-07-03 16:30 | A.OFFPC_ITS ---
Intake Visit Reasons: Flu Vaccine Allergies No Known Allergies Allergy (Unknown, Verified 12/27/22 10:50) NOT APPLICABLE Tobacco use date assessed: 12/27/22 [facility] Medical History (Updated 02/07/23 @ 08:14 by ALEXANDER Gastelum) Lump in armpit Allergic rhinitis Hypovitaminosis D Urticaria Hand numbness Family history of diabetes mellitus Abscess of axilla, left Overactive bladder Hospital discharge follow-up Incontinence Recurrent UTI Chronic constipation RUQ abdominal pain Constipation Hypovitaminosis D Irregular menses Urinary incontinence GERD (gastroesophageal reflux disease) Migraine headache with aura History of positive PPD Surgical History Hx of colonoscopy S/P tendon repair History of dilation and curettage History of removal of ovarian cyst History of tubal ligation Family History Father Stomach cancer Mother Heart disease Arthritis Elevated cholesterol Diabetes Hypertension Brother No problems noted. Brother No problems noted. Sister No problems noted. Sister No problems noted. Sister No problems noted. Sister No problems noted. Son No problems noted. Son No problems noted. Son No problems noted. 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 Clarke Loomis, Porsche Del Rio, Trent Roberts and colleagues, with an educational whitney from [employer]. Physical exam (Primary Care) Tobacco/Smoking Status: Tobacco use Status Tobacco use date assessed 12/27/22 07/03/23 16:30 Patient Tobacco Use Status Never used Tobacco 07/03/23 16:30 e-Cigarette/Vaping Use Never Used 07/03/23 16:30 Thrive Assessment: Date of Thrive Assessment Date Thrive assessed 12/27/22 07/03/23 16:30 Office Procedures Flu Questionnaire Does the patient have a severe egg allergy?: No Does the patient have severe life threatening allergies?: No Does the patient have a fever or illness today?: No Has the patient ever had Guillain-[place] Syndrome?: No Has the patient ever had any past reaction to a flu shot?: No Immunizations flu vacc [id number] 6mos up(PF) 60 mcg(15 mcgx4)/0.5 mL IM syringe Performing Provider: Gisele Dickerson MD Performing Location: [facility] Administered by: PRETTY Grove on 07/03/23 16:36 Dose Route Admin Location Dispensed Lot Number Expiration Date NDC Indexer 0.5 mL IM Right Deltoid 0.5 mL [id number] 03/21/24 07206-561-62 Sonian VIS Given Date VIS Provided VIS Publication Date 07/03/23 Single Vaccine 21 Eligibility Eligibility Date Funding Source Not [facility] Eligible 07/03/23 Private Assessment and Plan Assessment & Plan (1) Cough: Code(s): R05.9 - Cough, unspecified Orders: Orders Influenza [id number] Immunization Today R05.9 - Cough, unspecified, Z23 - Encounter for immunization Coding Diagnoses Cough R05.9
--- NOTE | 2023-07-03 16:41 | AM.OFFVISNUR ---
Intake Intake Visit Reasons: Flu Vaccine Intake Note: pt was here for a flu shot, given Information Assurance Required: No Roll Out Manager: Roll Out Manager offered & declined Accompanied by: Self / Same As Patient Allergies No Known Allergies Allergy (Unknown, Verified 12/27/22 10:50) NOT APPLICABLE Office Procedures Flu Questionnaire Does the patient have a severe egg allergy?: No Does the patient have severe life threatening allergies?: No Does the patient have a fever or illness today?: No Has the patient ever had Guillain-[place] Syndrome?: No Has the patient ever had any past reaction to a flu shot?: No Immunizations flu vacc [id number] 6mos up(PF) 60 mcg(15 mcgx4)/0.5 mL IM syringe Performing Provider: Gisele Dickerson MD Performing Location: [facility] Administered by: PRETTY Grove on 07/03/23 16:36 Dose Route Admin Location Dispensed Lot Number Expiration Date NDC Furniture Removalist 0.5 mL IM Right Deltoid 0.5 mL [id number] 03/21/24 [id number] [employer] VIS Given Date VIS Provided VIS Publication Date 07/03/23 Single Vaccine 21 Eligibility Eligibility Date Funding Source Not [facility] Eligible 07/03/23 Private Coding Diagnoses Cough R05.9 Assessment & Plan Assessment & Plan (1) Cough: Code(s): R05.9 - Cough, unspecified Orders: Orders Influenza [id number] Immunization Today R05.9 - Cough, unspecified, Z23 - Encounter for immunization
== END 2023-07-03 16:43 | disposition home or self-care (01) ==
PROVIDERS: PCP Internal Medicine; Visit Provider Internal Medicine
DX: R05.9 Cough, unspecified (principal); Z23 Encounter for immunization
CPT/HCPCS: 90471; 90686

== ENCOUNTER 2023-08-12 07:40 | Outpatient (REF) | payer OTHER, MEDICAID, SELFPAY ==
--- NOTE | ~2023-08-12 | MM_ITS ---
EXAMINATION: MM SCREENING DIGITAL BREAST TOMOSYNTHESIS, BILATERAL CLINICAL INFORMATION: Screening. Asymptomatic. COMPARISON: Mammography: 08/09/2022, 08/07/2021, 05/10/2020, 09/10/2019, 03/08/2019, 01/13/2018 TECHNIQUE: Digital breast tomosynthesis is performed in both the craniocaudal and mediolateral oblique views along with computer-aided detection (CAD). Synthesized 2D images are generated from the tomosynthesis. FINDINGS: The breasts are heterogeneously dense, which may obscure small masses (ACR BI-RADS breast composition Category c). There are no suspicious masses, suspicious grouped calcifications, or areas of architectural distortion in either breast. The parenchymal pattern is stable from prior exams. No axillary or skin abnormality. MM/MM tomosynthesis screening BI IMPRESSION: No mammographic evidence of malignancy. ASSESSMENT: BI-RADS BI-RADS 1 - Negative RECOMMENDATION: Routine annual mammography screening. 1 year F/U This examination should not preclude the clinical evaluation of a suspicious palpable abnormality. This patient's information was entered into a reminder system with a target due date for their next mammogram.
== END 2023-08-12 07:41 | disposition home or self-care (01) ==
LOC: HO.MAMMO 07:40
PROVIDERS: PCP Internal Medicine; Visit Provider Internal Medicine
DX: Z12.31 Encounter for screening mammogram for malignant neoplasm of breast (principal)
CPT/HCPCS: 77063; 77067

== ENCOUNTER → 2023-08-12 07:45 | Outpatient (BNV) | payer OTHER, MEDICAID, SELFPAY | PROVIDERS: PCP Internal Medicine; Visit Provider Radiology Diagnostic Radiology | DX: Z12.31 Encounter for screening mammogram for malignant neoplasm of breast (principal) | CPT/HCPCS: 77063; 77067 ==

== ENCOUNTER 2023-09-04 07:22 | Outpatient (AMB) | payer OTHER, SELFPAY ==
[2023-09-04 07:39] VITALS: BP 118/72; BMI 20.7
--- NOTE | 2023-09-04 07:39 | MHC.PC.OV ---
Vital Signs 09/04/23 07:39 Height 5 ft 3 in Weight 117 lb BMI 20.7 BP 118/72 Blood Pressure Location Lt brachial Position Sitting Intake Visit Reasons: PHYSICAL Intake Note: Patient here for a physical exam Manager Aviation Required: No Accompanied by: Self / Same As Patient Allergies No Known Allergies Allergy (Unknown, Verified 09/04/23 07:52) NOT APPLICABLE Medication List - Last Reconciled 09/04/23 by Gisele Dickerson MD azelastine-fluticasone 137-50 mcg/spray 1 spray intranasal BID 30 days Tobacco use date assessed: 12/27/22 Dental Screening Dental Screen Date: 09/04/23 Did you have a dental visit in the last 12 months?: Yes Did you have a dental problem in the last 6 months where you did not have access to dental care?: No Was dental information given to patient?: Patient has dentist HPI HPI Comments History of Present Illness Details This is a 53-year-old female that comes for physical exam. Last colonoscopy was 2016 and was normal. Last mammogram was July 2023 and was normal. Last Pap smear was October 2022 and was normal with HPV negative. Complains of a dry cough that has been present for the past month. Has been tested for COVID, flu, RSV and strep throat and has been negative. No fever or nasal congestion. Some sore throat. No wheezing. Will be referred to pulmonology. Will have chest x-ray done. [facility], [facility] Medical History (Updated 09/04/23 @ 08:07 by Gisele Dickerson MD) Lump in armpit Allergic rhinitis Hypovitaminosis D Urticaria Hand numbness Family history of diabetes mellitus Abscess of axilla, left Overactive bladder Hospital discharge follow-up Incontinence Recurrent UTI Chronic constipation RUQ abdominal pain Constipation Hypovitaminosis D Irregular menses Urinary incontinence GERD (gastroesophageal reflux disease) Migraine headache with aura History of positive PPD Surgical History Hx of colonoscopy S/P tendon repair History of dilation and curettage History of removal of ovarian cyst History of tubal ligation Family History Father Stomach cancer Mother Heart disease Arthritis Elevated cholesterol Diabetes Hypertension Brother No problems noted. Brother No problems noted. Sister No problems noted. Sister No problems noted. Sister No problems noted. Sister No problems noted. Son No problems noted. Son No problems noted. Son No problems noted. 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 Clarke Loomis, Porsche Del Rio, Trent Roberts and colleagues, with an educational whitney from [employer]. Review of Systems Const All systems reviewed & are unremarkable except as noted in HPI and below Eyes Reports no additional complaints, Denies change in vision and Denies other visual disturbances Card Denies chest pain at rest, Denies chest pain with activity, Denies edema, Denies irregular heart rhythm, Denies claudication, Denies dyspnea, Denies dyspnea on exertion, Denies orthopnea, Denies paroxysmal nocturnal dyspnea and Denies slow heart rate Resp Denies cough, Denies dyspnea and Denies dyspnea on exertion GI Denies abdominal pain, Denies change in bowel habits, Denies excessive flatus, Denies nausea and Denies vomiting Denies urinary incontinence, Denies urinary hesitancy and Denies urinary urgency Musc Denies abnormal gait, Denies atrophy, Denies deformity and Denies limited range of motion Skin/Breast Denies bleeding lesions, Denies changing lesions and Denies rash Neuro Denies abnormal gait, Denies behavioral changes, Denies confusion and Denies lack of coordination Psych Denies behavioral changes and Denies confusion Physical exam (Primary Care) Vital Signs: Last Vital Signs BP 118/72 09/04/23 07:39 BMI result Body Mass Index 20.7 Tobacco/Smoking Status: Tobacco use Status Tobacco use date assessed 12/27/22 09/04/23 07:44 Patient Tobacco Use Status Never used Tobacco 09/04/23 07:44 e-Cigarette/Vaping Use Never Used 09/04/23 07:44 Thrive Assessment: Date of Thrive Assessment Date Thrive assessed 12/27/22 09/04/23 07:44 Const General: No confusion Orientation/consciousness: patient oriented x3 and No confusion HENMT Head: Yes normal to inspection, Yes normocephalic and Yes atraumatic Ears: external ears normal Eyes General: appearance normal, both eyes and all related structures Eyelids: Yes eyelids normal Conjunctivae: conjunctivae normal Neck Neck: Yes normal visual inspection and Yes supple Resp Effort & Inspection: normal respiratory effort Auscultation: clear to auscultation bilaterally Cardio Jugular venous distension: no JVD Rate: regular rate Rhythm: regular rhythm Heart sounds: S1 normal heart sound present and S2 normal heart sound present GI Inspection: Yes normal to inspection Palpation (GI): Soft to palpation and nontender Auscultation: normal bowel sounds Skin General skin exam: no rashes or lesions noted Neuro General: patient oriented x3, no focal motor deficits and No confusion Extrem General: Yes full ROM Psych Appearance: grossly normal Assessment and Plan Assessment & Plan (1) Physical exam: Code(s): Z00.00 - Encounter for general adult medical examination without abnormal findings Plan: Repeat in a year. Orders: Orders Vitamin D 25-OH Total Today E55.9 - Vitamin D deficiency, unspecified Comprehensive Lerna. Panel Fast Today Z00.00 - Encounter for general adult medical examination without abnormal findings Thyroid Stimulating Hormone Today R63.4 - Abnormal weight loss Complete Blood Count Auto Diff Today R63.4 - Abnormal weight loss XR chest 2V Today R05.3 - Chronic cough Lipid Panel Today Z00.00 - Encounter for general adult medical examination without abnormal findings Referrals Pulmonology Referral R05.3 - Chronic cough Medications: New cholecalciferol (vitamin D3) 25 mcg PO DAILY 90 caps 1RF 90 days E55.9 - Vitamin D deficiency, unspecified cetirizine (Allergy Relief (cetirizine)) 10 mg PO DAILY PRN 90 tabs 1RF allergy symptoms 90 days J30.9 - Allergic rhinitis, unspecified Coding Level of Care Code Est Pt Prev Care 40-64y(66353) Diagnoses Physical exam Z00.00 Time Spent (min) 31
== END 2023-09-04 08:02 | disposition home or self-care (01) ==
PROVIDERS: Visit Provider Internal Medicine
DX: Z00.00 Encounter for general adult medical examination without abnormal findings (principal)
CPT/HCPCS: 99396

== ENCOUNTER 2023-09-04 08:16 | Outpatient (REF) | payer OTHER, SELFPAY ==
--- NOTE | ~2023-09-04 | XR_ITS ---
EXAMINATION: XR CHEST CLINICAL INFORMATION: Chronic cough. COMPARISON: 12/19/2021 TECHNIQUE: 2 views of the chest were obtained. FINDINGS: There is no gross pneumothorax. Heart size is normal. No pleural effusion. No new focal consolidation to suggest pneumonia. XR/XR chest 2V IMPRESSION: No evidence of pneumonia.
[2023-09-04 08:36] LABS: MANUAL DIFF FLAG NO
[2023-09-04 09:05] LABS: Basophils Absolute Auto 0.1 X10*3/uL (0.0-0.2); Basophils Percent Auto 0.7 % (0-2); Eosinophils Absolute Auto 0.1 X10*3/uL (0.0-0.4); Eosinophils Percent Auto 1.1 % (0-4); Hematocrit 42.4 % (37.0-47.0); Hemoglobin 13.7 g/dl (12.0-16.0); Imm Gran Abs Auto 0.02 X10*3/uL (0.00-0.03); Imm Gran Pct Auto 0.3 % (0.0-0.4); Lymphocytes Absolute Auto 1.6 X10*3/uL (1.2-4.9); Lymphocytes Percent Auto 21.8 % (20-40); Mean Corpuscular HGB Conc 32.3 g/dl (31.0-35.0); Mean Corpuscular Hemoglobin 27.7 pg (27.0-33.0); Mean Corpuscular Volume 85.8 fL (80.0-98.0); Mean Platelet Volume 9.4 fL (9.4-12.3); Monocytes Absolute Auto 0.8 X10*3/uL (0.1-1.2); Monocytes Percent Auto 10.6 % (2-11); Neutrophils Absolute Auto 4.8 x10*3/uL (2.0-8.3); Neutrophils Percent Auto 65.5 % (45-73); Platelet Count 292 X10*3/uL (160-400); Red Blood Count 4.94 X10*6/uL (4.20-5.50); Red Cell Distribution Width 13.2 % (11.0-16.0); White Blood Count 7.3 X10*3/uL (4.8-10.8)
[2023-09-04 09:41] LABS: Alanine Aminotransferase 39 U/L (0-31); Albumin Level 4.4 g/dL (3.5-5.0); Alkaline Phosphatase 143 U/L (39-117); Anion Gap 11 (12-20); Aspartate Amino Transferase 34 U/L (5-31); Bilirubin Total 0.4 mg/dL (0.0-1.0); Blood Urea Nitrogen 17 mg/dL (9-16); Calcium 9.9 mg/dL (8.4-10.2); Carbon Dioxide 28 mmol/L (22-29); Chloride 105 mmol/L (96-108); Cholesterol 201 mg/dL (<200); Estimated Glomerular Filt Rate > 60; Glucose Fasting 88 mg/dL (60-99); HDL Cholesterol 62 mg/dL (>40); LDL Cholesterol Calculated 125 mg/dL (<100); Sodium 140 mmol/L (135-145); Total Protein 8.1 g/dL (6.5-8.0); Triglycerides 70 mg/dL (<150)
[2023-09-04 09:49] LABS: Thyroid Stimulating Hormone 1.25 uIU/mL (0.32-4.0); Vitamin D 25-OH Total 30.8 ng/mL (>30)
== END 2023-09-04 08:17 | disposition home or self-care (01) ==
LOC: HO.XRAY 08:16
PROVIDERS: PCP Internal Medicine; Visit Provider Internal Medicine
DX: R05.3 Chronic cough (principal); E55.9 Vitamin D deficiency, unspecified; R63.4 Abnormal weight loss; Z00.00 Encounter for general adult medical examination without abnormal findings
CPT/HCPCS: 36415; 71046; 80053; 80061; 82306; 84443; 85025

== ENCOUNTER 2023-10-24 14:34 | Outpatient (AMB) | payer OTHER, SELFPAY ==
[2023-10-24 14:37] VITALS: BP 126/58; PULSE 69; O2SAT 100; BMI 21.7
--- NOTE | 2023-10-24 14:37 | A.OFFVIS_ITS ---
Intake Vital Signs 10/24/23 14:37 Height 5 ft 3 in Weight 122 lb 5.705 oz BMI 21.7 BP 126/58 L Blood Pressure Location Rt brachial Position Sitting Pulse 69 Pulse Source Doppler Pulse Oximetry (%) 100 Oxygen Delivery Method Room Air Intake Visit Reasons: Cough Certified Travel Counselor Required: Yes Certified Travel Counselor Name: Veronicajennifer Weber Allergies No Known Allergies Allergy (Unknown, Verified 10/24/23 14:42) NOT APPLICABLE HPI Cough HPI Details 52-year-old lady, previously followed fo r allergic sinusitis controlled on Zyrtec and Dymista. Patient states that she has had COVID-19 in August of 2023 and after that she has been having some dyspnea on exertion she denies wheezing or productive cough. [facility] Medical History Lump in armpit Allergic rhinitis Hypovitaminosis D Urticaria Hand numbness Family history of diabetes mellitus Abscess of axilla, left Overactive bladder Hospital discharge follow-up Incontinence Recurrent UTI Chronic constipation RUQ abdominal pain Constipation Hypovitaminosis D Irregular menses Urinary incontinence GERD (gastroesophageal reflux disease) Migraine headache with aura History of positive PPD Surgical History Hx of colonoscopy S/P tendon repair History of dilation and curettage History of removal of ovarian cyst History of tubal ligation Family History Father Stomach cancer Mother Heart disease Arthritis Elevated cholesterol Diabetes Hypertension Brother No problems noted. Brother No problems noted. Sister No problems noted. Sister No problems noted. Sister No problems noted. Sister No problems noted. Son No problems noted. Son No problems noted. Son No problems noted. 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 occupational exposures/hazards: No Cognitive needs: No Hearing needs: No Vision needs: No Review of Systems Const Denies daytime sleepiness, Denies excessive sweating, Denies fatigue, Denies fever(s), Denies lethargy, Denies malaise, Denies night sweats, Denies snoring and Denies weight loss Eyes Denies blurry vision and Denies itchy eyes ENT Denies nasal congestion, Denies post nasal drip, Denies sinus pain, Denies sinus pressure and Denies other ( Thrush) Card Denies chest pain, Denies pedal edema, Denies dyspnea, Reports dyspnea on e xertion, Denies orthopnea and Denies paroxysmal nocturnal dyspnea Resp Denies cough, Denies hemoptysis, Denies excessive phlegm production, Denies dyspnea, Reports dyspnea on exertion, Denies snoring and Denies wheezing GI Denies abdominal pain and Denies heartburn Musc Denies myalgias, Denies arthralgias and Denies joint swelling Skin/Breast Denies rash Neuro Denies memory loss and Denies seizure-like activity Psych Denies abnormal sleep pattern, Denies anxiety and Denies memory loss Endo Denies excessive sweating, Denies fatigue and Denies heat intolerance Demarco/Lymph Denies easy bruising Aller/Immun Denies itchy eyes, Denies seasonal rhinorrhea and Denies wheezing Physical Exam Vital Signs: Last Vital Signs Pulse 69 10/24/23 14:37 BP 126/58 L 10/24/23 14:37 Pulse Ox 100 10/24/23 14:37 Oxygen Delivery Method Room Air 10/24/23 14:37 BMI result Body Mass Index 21.7 Const General: no acute distress and alert Nutritional Appearance: not obese Orientation/consciousness: Other orientation findings ( oriented) HEENT Head: Yes atraumatic Eyes General: appearance normal, both eyes and all related structures Sclerae: sclerae normal EOM: EOMs intact bilaterally Neck Neck: Yes supple Lymphatic: no lymphadenopathy noted Resp Effort & Inspection: normal respiratory effort and no use of accessory muscles Auscultation: clear to auscultation bilaterally Cardio Rate: regular rate Rhythm: regular rhythm Heart sounds: no gallops, no murmurs and no rubs Skin General skin exam: other ( warm) Extrem General: No clubbing, No cyanosis and No edema Assessment & Plan Assessment & Plan (1) Post covid-19 condition, unspecified: Code(s): U09.9 - Post COVID-19 condition, unspecified Plan: Slowly improving dyspnea on exertion. Will obtain pulmonary function test and chest x-ray for further evaluation. (2) Chronic cough: Code(s): R05.3 - Chronic cough Plan: Baseline controlled on Zyrtec and Dymista. Exacerbation after COVID, will add codeine syrup for symptomatic relief. Orders: Orders PFT pulmonary function test Today R05.3 - Chronic cough XR chest 2V Today R05.3 - Chronic cough Medications: New codeine-guaifenesin 10-100 mg/5 mL 10 mL PO Q4-6H PRN 473 mL 0RF cough R05.3 - Chronic cough Coding Level of Care Code Est Pt Level 4 (69730) Diagnoses Post covid-19 condition, unspecified U09.9 Chronic cough R05.3
== END 2023-10-24 15:03 | disposition home or self-care (01) ==
PROVIDERS: PCP Internal Medicine; Visit Provider Internal Medicine Pulmonary Disease
DX: U09.9 Post COVID-19 condition, unspecified (principal); R05.3 Chronic cough
CPT/HCPCS: 99214

== ENCOUNTER 2023-10-24 14:34 | Outpatient (REF) | payer OTHER, SELFPAY ==
--- NOTE | ~2023-10-24 | XR_ITS ---
EXAMINATION: XR chest 2V CLINICAL INFORMATION: Reason for Exam R05.3 - Chronic cough COMPARISON: Chest radiograph 09/04/2023 TECHNIQUE: 2 views of the chest FINDINGS: Clear lungs. No pneumothorax or pleural effusion. Normal cardiomediastinal silhouette. XR/XR chest 2V Impression: No acute cardiopulmonary findings.
== END 2023-10-24 14:35 | disposition home or self-care (01) ==
LOC: HO.XRAY 14:34
PROVIDERS: PCP Internal Medicine; Visit Provider Internal Medicine Pulmonary Disease
DX: R05.3 Chronic cough (principal)
CPT/HCPCS: 71046

== ENCOUNTER 2023-11-25 08:09 | Outpatient (AMB) | payer OTHER, SELFPAY ==
--- NOTE | 2023-11-25 08:25 | MHC.OFFVIS ---
Intake Vital Signs 11/25/23 08:31 Height 5 ft 3 in Weight 117 lb BMI 20.7 BP 140/61 H Blood Pressure Location Lt brachial Position Sitting Pulse 59 Intake Visit Reasons: follow up r/s from 09/08 Intake Note: Patient follow up for Chronic Constipation. Patient cc: RLQ pain, gassy with a lot of burping, weight lost and constipation. Financial Services Representative Required: Yes Financial Services Representative Name: [facility] Accompanied by: Self / Same As Patient Allergies No Known Allergies Allergy (Unknown, Verified 11/25/23 08:23) NOT APPLICABLE Medication List - Last Reconciled 11/25/23 by Lizeth Saini PA-C azelastine-fluticasone 137-50 mcg/spray 1 spray intranasal BID 30 days cetirizine (Allergy Relief (cetirizine)) 10 mg PO DAILY PRN 90 days cholecalciferol (vitamin D3) 25 mcg PO DAILY 90 days HPI HPI Comments History of Present Illness Details A 53 y/o female last seen 05/2022- RLQ everyday when she wakes up-she has not know if it is due to her bowels. BM QD-typically normal Review of record shows Last colonoscopy 2016 Dr. Miller no polyps everything she eats makes her burp-reviewed diet- Review record shows history of H pylori treated negative test of cure She has no nausea, vomiting hematemesis, hematochezia fever chills - PFSH Medical History Lump in armpit Allergic rhinitis Hypovitaminosis D Urticaria Hand numbness Family history of diabetes mellitus Abscess of axilla, left Overactive bladder Hospital discharge follow-up Incontinence Recurrent UTI Chronic constipation RUQ abdominal pain Constipation Hypovitaminosis D Irregular menses Urinary incontinence GERD (gastroesophageal reflux disease) Migraine headache with aura History of positive PPD Surgical History Hx of colonoscopy S/P tendon repair History of dilation and curettage History of removal of ovarian cyst History of tubal ligation Family History Father Stomach cancer Mother Heart disease Arthritis Elevated cholesterol Diabetes Hypertension Brother No problems noted. Brother No problems noted. Sister No problems noted. Sister No problems noted. Sister No problems noted. Sister No problems noted. Son No problems noted. Son No problems noted. Son No problems noted. 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 occupational exposures/hazards: No Cognitive needs: No Hearing needs: No Vision needs: No Review of Systems Const All systems reviewed & are unremarkable except as noted in HPI and below GI Reports abdominal pain, Denies hematochezia, Reports heartburn, Denies diarrhea, Denies nausea and Denies vomiting Physical Exam Vital Signs: Last Vital Signs Pulse 59 11/25/23 08:31 BP 140/61 H 11/25/23 08:31 BMI result Body Mass Index 20.7 Const General: cooperative, healthy appearing, comfortable and no acute distress Orientation/consciousness: patient oriented x3 Limitations: language barrier Eyes Sclerae: sclerae normal Resp Effort & Inspection: normal respiratory effort and able to speak in complete sentences Auscultation: clear to auscultation bilaterally, no rales, no rhonchi and no wheezes Cardio Rate: regular rate Rhythm: regular rhythm Heart sounds: S1 normal heart sound present and S2 normal heart sound present GI Palpation (GI): Soft to palpation, Tenderness to palpation present (GI) (Mild with deep palpation) in the RLQ, no guarding and No Rebound tenderness present Skin General skin exam: no rashes or lesions noted Neuro General: patient oriented x3 Extrem General: Yes full ROM Psych Appearance: grossly normal and well kempt Mental Status: mental status grossly normal Speech and movement: Clear speech present Affect: Labile affect present Thought process: Normal thought process present Thought content: Normal thought content present Results Reviewed Results Reviewed: Reviewed colonoscopy 2017 Dr. Miller no polyps Assessment & Plan Assessment & Plan (1) Abdominal pain: Comment: Chronic- Intermittent -GI versus consulting engineer Maybe function-sees consulting engineer EGD colonoscopy, discussed procedures, rare risks need for escorted due to anesthesia Code(s): R10.9 - Unspecified abdominal pain Plan: Update colonoscopy CBC (2) H. pylori infection: Comment: History H pylori, will get stool antigen Code(s): A04.8 - Other specified bacterial intestinal infections Plan: Once she submits sample she may begin omeprazole 20 mg daily Reflux precautions EGD (3) Elevated total protein: Code(s): R77.8 - Other specified abnormalities of plasma proteins Plan EGD/ colo- MG prep Orders: Orders H pylori Ag Stool Today A04.8 - Other specified bacterial intestinal infections Complete Blood Count Auto Diff Today K52.9 - Noninfective gastroenteritis and colitis, unspecified EGD/[place] Combo - GI Use Only Today A04.8 - Other specified bacterial intestinal infections, R10.9 - Unspecified abdominal pain Protein Electrophoresis, Serum Today R77.8 - Other specified abnormalities of plasma proteins Medications: New polyethylene glycol 3350 (Miralax) Take as directed by mouth the day before your procedure. 238 grams PO ONCE 1 day PRN 238 grams 0RF laxative effect simethicone (Gas Relief (simethicone)) 125 mg PO TID-QID PRN 90 tabs 2RF abdominal distention bisacodyl (Dulcolax (bisacodyl)) Day before procedure @ 12 noon Take 4 tablets by mouth followed by large glass of water 20 mg (4 x 5 mg) PO ONCE 1 day PRN 4 tabs 0RF colonoscopy prep Z12.11 - Encounter for screening for malignant neoplasm of colon omeprazole 20 mg PO DAILY 30 caps 5RF Patient Instructions: H pylori stool antigen, if positive will treat-patient will call 48 hours after submission for results Once admitted will begin omeprazole 20 mg CBC-assess for elevated WBC Protein electrophoresis elevated protein EGD for Almazan's surveillance/pud, nonulcer dyspepsia, esophagitis or other endoscopic findings to account for her symptoms as well as colonoscopy MiraLax Gatorade prep reviewed literature given encouraged to call questions or concerns Encouraged to call questions or concerns Coding Level of Care Code Est Pt Level 4 (29196) Diagnoses Abdominal pain R10.9 H. pylori infection A04.8 Elevated total protein R77.8 Time Spent (min) 30 Comment Financial Services Representative
[2023-11-25 08:31] VITALS: BP 140/61; PULSE 59; BMI 20.7
== END 2023-11-25 09:24 | disposition home or self-care (01) ==
PROVIDERS: PCP Internal Medicine; Visit Provider Physician Assistant
DX: R10.9 Unspecified abdominal pain (principal); A04.8 Other specified bacterial intestinal infections; R77.8 Other specified abnormalities of plasma proteins
CPT/HCPCS: 99214

== ENCOUNTER 2023-11-25 09:34 | Outpatient (REF) | payer OTHER, SELFPAY ==
[2023-11-25 07:35] VITALS: PULSE 60; RESP 16; O2SAT 100
[2023-11-25 09:48] LABS: MANUAL DIFF FLAG NO
[2023-11-25 10:04] LABS: Basophils Percent Auto 0.7 % (0-2); Eosinophils Absolute Auto 0.1 X10*3/uL (0.0-0.4); Eosinophils Percent Auto 2.3 % (0-4); Hemoglobin 12.8 g/dl (12.0-16.0); Imm Gran Abs Auto 0.01 X10*3/uL (0.00-0.03); Imm Gran Pct Auto 0.2 % (0.0-0.4); Lymphocytes Percent Auto 35.1 % (20-40); Mean Corpuscular Hemoglobin 27.2 pg (27.0-33.0); Mean Corpuscular Volume 84.9 fL (80.0-98.0); Mean Platelet Volume 9.4 fL (9.4-12.3); Monocytes Absolute Auto 0.5 X10*3/uL (0.1-1.2); Monocytes Percent Auto 9.3 % (2-11); Neutrophils Percent Auto 52.4 % (45-73); Platelet Count 299 X10*3/uL (160-400); Red Blood Count 4.71 X10*6/uL (4.20-5.50); White Blood Count 5.6 X10*3/uL (4.8-10.8)
--- NOTE | 2023-11-25 16:14 | PFT_ITS ---
Flows: FEV1: 73 % of predicted at 1.84 L FVC: 70 % of predicted at 2.24 L FEV1/FVC: 82 % Bronchodilator response: Absent Volumes: No lung volumes measurements available secondary to a technical issue. Diffusion capacity: Mildly decreased, corrects to normal after adjustment for alveolar ventilation. Impression: No obstructive ventilatory defect. Spirometry suggests restrictive ventilatory defect. No bronchodilator response. Decreased diffusion capacity together with likely restrictive ventilatory defect suggests underlying pulmonary parenchymal disease. Clinical correlation is advised. MTDD
[2023-11-27 11:08] LABS: Prot Elec - Albumin 4.2 g/dL (3.8-4.8); Prot Elec - Alpha1 0.3 g/dL (0.2-0.3); Prot Elec - Alpha2 0.6 g/dL (0.5-0.9); Prot Elec - Beta 1 0.5 g/dL (0.4-0.6); Prot Elec - Beta 2 0.5 g/dL (0.2-0.5); Prot Elec - Gamma 1.4 g/dL (0.8-1.7); Prot Elec - Total Protein 7.4 g/dL (6.1-8.1)
== END 2023-11-25 09:35 | disposition home or self-care (01) ==
LOC: HO.RESP 09:34
PROVIDERS: Absent Provider Physician Assistant; PCP Internal Medicine; Visit Provider Internal Medicine Pulmonary Disease
DX: R05.3 Chronic cough (principal); K52.9 Noninfective gastroenteritis and colitis, unspecified; R77.8 Other specified abnormalities of plasma proteins
CPT/HCPCS: 84165; 85025; 94010; 94640; 94727; 94729

== ENCOUNTER → 2023-11-25 16:14 | Outpatient (BNV) | payer OTHER, SELFPAY | PROVIDERS: Absent Provider Physician Assistant; PCP Internal Medicine; Visit Provider Internal Medicine Pulmonary Disease | DX: R05.3 Chronic cough (principal) | CPT/HCPCS: 94060; 94729 ==

== ENCOUNTER 2023-11-26 08:22 | Outpatient (REF) | payer OTHER, SELFPAY | END 2023-11-26 08:23 | disposition home or self-care (01) | LOC: HO.LNP 08:22 | PROVIDERS: Visit Provider Physician Assistant | DX: A04.8 Other specified bacterial intestinal infections (principal) | CPT/HCPCS: 87338 ==

== ENCOUNTER 2023-12-05 15:06 | Outpatient (AMB) | payer OTHER, SELFPAY ==
[2023-12-05 15:19] VITALS: BP 114/62; PULSE 68; O2SAT 98; BMI 21.1
--- NOTE | 2023-12-05 15:19 | MHC.OFFVIS ---
Intake Vital Signs 12/05/23 15:19 Height 5 ft 3 in Weight 119 lb BMI 21.1 BP 114/62 Blood Pressure Location Lt brachial Position Sitting Pulse 68 Pulse Source Doppler Pulse Oximetry (%) 98 Oxygen Delivery Method Room Air Intake Visit Reasons: Cough Wharf Worker Required: Yes Wharf Worker Name: Veronica MartinesArthurNeelam Allergies No Known Allergies Allergy (Unknown, Verified 12/05/23 15:23) NOT APPLICABLE HPI Cough HPI Details 53-year-old lady, previously followed for allergic sinusitis controlled on Zyrtec and Dymista and post COVID symptoms. Patient states that after the last office visit her respiratory status returned to baseline and her allergic symptoms are well controlled. [facility] Medical History Lump in armpit Allergic rhinitis Hypovitaminosis D Urticaria Hand numbness Family history of diabetes mellitus Abscess of axilla, left Overactive bladder Hospital discharge follow-up Incontinence Recurrent UTI Chronic constipation RUQ abdominal pain Constipation Hypovitaminosis D Irregular menses Urinary incontinence GERD (gastroesophageal reflux disease) Migraine headache with aura History of positive PPD Surgical History Hx of colonoscopy S/P tendon repair History of dilation and curettage History of removal of ovarian cyst History of tubal ligation Family History Father Stomach cancer Mother Heart disease Arthritis Elevated cholesterol Diabetes Hypertension Brother No problems noted. Brother No problems noted. Sister No problems noted. Sister No problems noted. Sister No problems noted. Sister No problems noted. Son No problems noted. Son No problems noted. Son No problems noted. 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 occupational exposures/hazards: No Cognitive needs: No Hearing needs: No Vision needs: No Review of Systems Const Denies daytime sleepiness, Denies excessive sweating, Denies fatigue, Denies fever(s), Denies lethargy, Denies malaise, Denies night sweats, Denies snoring and Denies weight loss Eyes Denies blurry vision and Denies itchy eyes ENT Denies nasal congestion, Denies post nasal drip, Denies sinus pain, Denies sinus pressure and Denies other ( Thrush) Card Denies chest pain, Denies pedal edema, Denies dyspnea, Denies orthopnea and Denies paroxysmal nocturnal dyspnea Resp Denies cough, Denies hemoptysis, Denies excessive phlegm production, Denies dyspnea, Denies snoring and Denies wheezing GI Denies abdominal pain and Denies heartburn Musc Denies myalgias, Denies arthralgias and Denies joint swelling Skin/Breast Denies rash Neuro Denies memory loss and Denies seizure-like activity Psych Denies abnormal sleep pattern, Denies anxiety and Denies memory loss Endo Denies excessive sweating, Denies fatigue and Denies heat intolerance Demarco/Lymph Denies easy bruising Aller/Immun Denies itchy eyes, Denies seasonal rhinorrhea and Denies wheezing Physical Exam Vital Signs: Last Vital Signs Pulse 68 12/05/23 15:19 BP 114/62 12/05/23 15:19 Pulse Ox 98 12/05/23 15:19 Oxygen Delivery Method Room Air 12/05/23 15:19 BMI result Body Mass Index 21.1 Const General: no acute distress and alert Nutritional Appearance: not obese Orientation/consciousness: Other orientation findings ( oriented) HEENT Head: Yes atraumatic Eyes General: appearance normal, both eyes and all related structures Sclerae: sclerae normal EOM: EOMs intact bilaterally Neck Neck: Yes supple Lymphatic: no lymphadenopathy noted Resp Effort & Inspection: normal respiratory effort and no use of accessory muscles Auscultation: clear to auscultation bilaterally Cardio Rate: regular rate Rhythm: regular rhythm Heart sounds: no gallops, no murmurs and no rubs Skin General skin exam: other ( warm) Extrem General: No clubbing, No cyanosis and No edema Assessment & Plan Assessment & Plan (1) Post covid-19 condition, unspecified: Code(s): U09.9 - Post COVID-19 condition, unspecified Plan: Resolved, respiratory status returned to baseline. (2) Allergic rhinitis: Code(s): J30.9 - Allergic rhinitis, unspecified Plan: Well controlled on as needed Zyrtec and Dymista. Continue current regimen. Coding Level of Care Code Est Pt Level 4 (62133) Diagnoses Post covid-19 condition, unspecified U09.9 Allergic rhinitis J30.9
== END 2023-12-05 15:29 | disposition home or self-care (01) ==
PROVIDERS: PCP Internal Medicine; Visit Provider Internal Medicine Pulmonary Disease
DX: U09.9 Post COVID-19 condition, unspecified (principal); J30.9 Allergic rhinitis, unspecified
CPT/HCPCS: 99214

== ENCOUNTER → 2023-12-05 15:06 | Outpatient (BNVA) | payer OTHER, SELFPAY | PROVIDERS: PCP Internal Medicine; Visit Provider Internal Medicine Pulmonary Disease ==

== ENCOUNTER 2023-12-29 14:43 | Outpatient (AMB) | payer OTHER, SELFPAY ==
[2023-12-29 14:45] VITALS: BP 116/74; PULSE 59; TEMP 36.7; O2SAT 93; BMI 21.3
--- NOTE | 2023-12-29 14:45 | AM.OFFWIN_ITS ---
Intake Vital Signs 12/29/23 14:45 Height 5 ft 3 in Weight 120 lb 8 oz BMI 21.3 BP 116/74 Blood Pressure Location Lt brachial Position Sitting Pulse 59 Pulse Source Pulse Oximeter Temp 98.1 F Temp Source Oral Pulse Oximetry (%) 93 Oxygen Delivery Method Room Air Intake Visit Reasons: EP LFT eye swollen (lobby) Intake Note: Pt presents to the office today for c/o left eye swelling that started today. She denies any injury to her eye. She states it is a little painful. 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 Endorses continuous tearing, denies purulent discharge Denies headache, pain with movement of the eyes [facility] Medical History Lump in armpit Allergic rhinitis Hypovitaminosis D Urticaria Hand numbness Family history of diabetes mellitus Abscess of axilla, left Overactive bladder Hospital discharge follow-up Incontinence Recurrent UTI Chronic constipation RUQ abdominal pain Constipation Hypovitaminosis D Irregular menses Urinary incontinence GERD (gastroesophageal reflux disease) Migraine headache with aura History of positive PPD Surgical History Hx of colonoscopy S/P tendon repair History of dilation and curettage History of removal of ovarian cyst History of tubal ligation Family History Father Stomach cancer Mother Heart disease Arthritis Elevated cholesterol Diabetes Hypertension Brother No problems noted. Brother No problems noted. Sister No problems noted. Sister No problems noted. Sister No problems noted. Sister No problems noted. Son No problems noted. Son No problems noted. Son No problems noted. 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 Answers questions appropriately. Fully engaged in examination. Skin: warm, dry, intact HEENT: Normocephalic. Hearing intact. left eye: + watery tearing, upper eyelid swelling, conjunctiva without injection, cornea clear, EOM intact without pain, PERRL Cardiac: External chest normal in appearance. Respiratory: No cough, audible wheezing or stridor. Abdomen: without gross distension. MS: No obvious swelling or deformities. Neurological: Oriented to person, place, time and situation. Thought process intact. Psychiatric: Appropriate mood and affect. Good judgment and insight. Assessment & Plan Assessment & Plan (1) Eye swelling, left: Code(s): H57.89 - Other specified disorders of eye and adnexa Plan Prednisone 40 mg p.o. daily x5 days Erythromycin ointment twice daily Cold compresses as tolerated Avoid rubbing or itching the eye Follow up with PCP or return to walk-in for any new or worsening symptoms Medications: New prednisone 40 mg (2 x 20 mg) PO DAILY 5 days 10 tabs 0RF erythromycin 0.5 inches ophthalmic (eye) BID 3.5 grams 0RF Coding Level of Care Code Est Pt Level 3 (69962) Diagnoses Eye swelling, left H57.89
== END 2023-12-29 15:54 | disposition home or self-care (01) ==
PROVIDERS: PCP Internal Medicine; Visit Provider Registered Nurse Emergency
DX: H57.89 Other specified disorders of eye and adnexa (principal)
CPT/HCPCS: 99213

== ENCOUNTER 2024-01-22 15:37 | Outpatient (AMB) | payer OTHER, SELFPAY ==
[2024-01-22 15:43] VITALS: BP 110/70; BMI 20.7
--- NOTE | 2024-01-22 15:43 | A.OFFPC_ITS ---
Vital Signs 01/22/24 15:43 Height 5 ft 3 in Weight 117 lb BMI 20.7 BP 110/70 Blood Pressure Location Lt brachial Position Sitting Intake Visit Reasons: Eye redness Intake Note: patient here c/o eye redness Power Regulator Required: No Accompanied by: Self / Same As Patient Allergies No Known Allergies Allergy (Unknown, Verified 01/22/24 15:53) NOT APPLICABLE Medication List - Last Reconciled 01/22/24 by Gisele Dickerson MD bisacodyl (Dulcolax (bisacodyl)) 20 mg (4 x 5 mg) PO ONCE PRN 1 day polyethylene glycol 3350 (Miralax) 238 grams PO ONCE PRN 1 day Tobacco use date assessed: 01/22/24 Dental Screening Dental Screen Date: 09/04/23 HPI HPI Comments History of Present Illness Details This is a 53-year-old female with migraines and allergic rhinitis that complains today of eyes being red, itchy and teary more prominent in the left most likely due to allergic conjunctivitis. Will be prescribed eyedrops. Migraines stable with sumatriptan as needed. On antihistamines for allergic rhinitis. [facility] Medical History (Updated 01/24/24 @ 16:28 by Gisele Dickerson MD) Lump in armpit Allergic rhinitis Hypovitaminosis D Urticaria Hand numbness Family history of diabetes mellitus Abscess of axilla, left Overactive bladder Hospital discharge follow-up Incontinence Recurrent UTI Chronic constipation RUQ abdominal pain Constipation Hypovitaminosis D Irregular menses Urinary incontinence GERD (gastroesophageal reflux disease) Migraine headache with aura History of positive PPD Surgical History Hx of colonoscopy S/P tendon repair History of dilation and curettage History of removal of ovarian cyst History of tubal ligation Family History Father Stomach cancer Mother Heart disease Arthritis Elevated cholesterol Diabetes Hypertension Brother No problems noted. Brother No problems noted. Sister No problems noted. Sister No problems noted. Sister No problems noted. Sister No problems noted. Son No problems noted. Son No problems noted. Son No problems noted. 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 Clarke Loomis, Porsche Del Rio, Trent Roberts and colleagues, with an educational whitney from [employer] Review of Systems Const All systems reviewed & are unremarkable except as noted in HPI and below Eyes Reports no additional complaints, Denies change in vision and Denies other visual disturbances Card Denies chest pain at rest, Denies chest pain with activity, Denies edema, Denies irregular heart rhythm, Denies claudication, Denies dyspnea, Denies dyspnea on exertion, Denies orthopnea, Denies paroxysmal nocturnal dyspnea and Denies slow heart rate Resp Denies cough, Denies dyspnea and Denies dyspnea on exertion Physical exam (Primary Care) Vital Signs: Last Vital Signs BP 110/70 01/22/24 15:43 BMI result Body Mass Index 20.7 Tobacco/Smoking Status: Tobacco use Status Tobacco use date assessed 01/22/24 01/22/24 15:48 Patient Tobacco Use Status Never used Tobacco 01/22/24 15:48 e-Cigarette/Vaping Use Never Used 01/22/24 15:48 Thrive Assessment: Date of Thrive Assessment Date Thrive assessed 12/27/22 01/22/24 15:48 Resp Effort & Inspection: normal respiratory effort Auscultation: clear to auscultation bilaterally Cardio Jugular venous distension: no JVD Rate: regular rate Rhythm: regular rhythm Heart sounds: S1 normal heart sound present and S2 normal heart sound present Extrem General: Yes full ROM Assessment and Plan Assessment & Plan (1) Allergic conjunctivitis: Code(s): H10.10 - Acute atopic conjunctivitis, unspecified eye Plan: Continue antihistamines. (2) Allergic rhinitis: Code(s): J30.9 - Allergic rhinitis, unspecified Plan: Continue antihistamines. (3) Migraine: Code(s): G43.909 - Migraine, unspecified, not intractable, without status migrainosus Plan: Continue triptans prn. Orders: Orders Comprehensive [place]. Panel Fast 01/22/24 R74.01 - Elevation of levels of liver transaminase levels Complete Blood Count Auto Diff 01/22/24 D64.9 - Anemia, unspecified, R63.4 - Abnormal weight loss Thyroid Stimulating Hormone 01/22/24 R63.4 - Abnormal weight loss Lipid Panel 01/22/24 Z00.00 - Encounter for general adult medical examination without abnormal findings Vitamin B12 and Folate 01/22/24 E53.8 - Deficiency of other specified B group vitamins Vitamin D 25-OH Total 01/22/24 E55.9 - Vitamin D deficiency, unspecified Referrals Ophthalmology Referral H57.89 - Other specified disorders of eye and adnexa Medications: New cetirizine (All Day Allergy (cetirizine)) 10 mg PO DAILY PRN 90 tabs 2RF allergy symptoms 90 days olopatadine 0.2% (Pataday Once Daily Relief) 1 drp ophthalmic (eye) DAILY PRN 2.5 mL 1RF itching 7 days sumatriptan succinate do not exceed 8 doses per 24 hrs 25 mg PO Q2-4H PRN 9 tabs 0RF migraine headache 30 days Coding Level of Care Code Est Pt Level 3 (30358) Diagnoses Allergic conjunctivitis H10.10 Allergic rhinitis J30.9 Migraine G43.909 Time Spent (min) 19
== END 2024-01-22 16:01 | disposition home or self-care (01) ==
PROVIDERS: PCP Internal Medicine; Visit Provider Internal Medicine
DX: H10.10 Acute atopic conjunctivitis, unspecified eye (principal); J30.9 Allergic rhinitis, unspecified; G43.909 Migraine, unspecified, not intractable, without status migrainosus
CPT/HCPCS: 99213

== ENCOUNTER → 2024-02-17 14:05 | Outpatient (BNVA) | payer OTHER, SELFPAY | PROVIDERS: PCP Internal Medicine; Visit Provider Advanced Practice Midwife ==

== ENCOUNTER 2024-02-17 14:50 | Emergency (ER) | payer OTHER, SELFPAY ==
--- NOTE | 2024-02-17 | ECG_ITS ---
Test Reason : CHEST PRESSURE Blood Pressure : / mmHG Vent. Rate : 070 BPM Atrial Rate : 070 BPM P-R Int : 148 ms QRS Dur : 082 ms QT Int : 380 ms P-R-T Axes : 054 029 040 degrees QTc Int : 410 ms Normal sinus rhythm Normal ECG When compared with ECG of 19-MAR-2018 10:26, No significant change was found Referred By: Generic ED Physician Electronically Signed By:MALACHI SNYDER
--- NOTE | ~2024-02-17 | XR_ITS ---
EXAMINATION: XR CHEST CLINICAL INFORMATION: Chest pain COMPARISON: None available. TECHNIQUE: 2 views of the chest were obtained. FINDINGS: Lungs clear. No pneumothorax. Heart and pulmonary vessels normal. No pleural effusions. XR/XR chest 2V IMPRESSION: No active disease.
[2024-02-17 15:00] VITALS: BP 139/63; PULSE 65; RESP 16; TEMP 36.7; O2SAT 100; BMI 22.7
--- NOTE | 2024-02-17 15:08 | ED_ITS ---
HPI - Chest Pain General Chief Complaint: Chest Pain Stated Complaint: chest pressure, headache Time Seen by Provider: 02/17/24 21:39 Source: patient, family, RN notes reviewed and old records reviewed Mode of arrival: ambulatory Limitations: no limitations History of Present Illness ED Provider: Shani VARGAS narrative: 53-year-old female presents for evaluation chest pressure and headache. She reports her symptoms started yesterday morning. Her pain is unrelated to exertion. Her pain is constant pain Pain is 8/10. She endorses associated ?gas in my stomach. ? Patient endorses subjective fevers and chills pain She denies any sore throat, congestion, runny nose, ear pain, cough, shortness of breath Denies any sick contacts or recent travel Related Data Previous Rx's ?Medication ?Instructions ?Recorded bisacodyl 5 mg tablet,delayed 20 mg (4 x 5 mg) PO ONCE PRN 11/25/23 release (Dulcolax (bisacodyl)) colonoscopy prep 1 day #4 tabs cetirizine 10 mg tablet (All Day 10 mg PO DAILY PRN allergy 01/22/24 Allergy (cetirizine)) symptoms 90 days #90 tabs sumatriptan succinate 25 mg tablet 25 mg PO Q2-4H PRN migraine 01/22/24 headache 30 days #9 tabs omeprazole 20 mg capsule,delayed 20 mg PO DAILY #14 caps 02/17/24 release Allergies Allergy/AdvReac Type Severity Reaction Status Date / Time No Known Allergies Allergy Unknown NOT Verified 02/17/24 15:02 APPLICABLE Review of Systems 2 Constitutional: Constitutional: Denies body ache(s), Reports chills, Reports fever(s) and Reports headache(s) Eyes: Eyes: Denies blurry vision ENT: Denies otalgia, Reports headache(s) and Denies sore throat Cardiovascular: Cardiovascular: Reports chest pain and Denies dyspnea Respiratory: Respiratory: Denies cough and Denies dyspnea Gastrointestinal: Gastrointestinal: Reports abdominal pain, Reports belching, Reports bloating, Denies hematochezia, Denies change in bowel habits, Denies nausea and Denies vomiting Musculoskeletal: Musculoskeletal: Denies back pain Integumentary/Breasts: Skin/Breast: Denies rash Neurologic: Reports headache(s) PMF Past Medical History Medical History Lump in armpit Allergic rhinitis Hypovitaminosis D Urticaria Hand numbness Family history of diabetes mellitus Abscess of axilla, left Overactive bladder Hospital discharge follow-up Incontinence Recurrent UTI Chronic constipation RUQ abdominal pain Constipation Hypovitaminosis D Irregular menses Urinary incontinence GERD (gastroesophageal reflux disease) Migraine headache with aura History of positive PPD Surgical History Hx of colonoscopy S/P tendon repair History of dilation and curettage History of removal of ovarian cyst History of tubal ligation Family History Family History Father Stomach cancer Mother Heart disease Arthritis Elevated cholesterol Diabetes Hypertension Brother No problems noted. Brother No problems noted. Sister No problems noted. Sister No problems noted. Sister No problems noted. Sister No problems noted. Son No problems noted. Son No problems noted. Son No problems noted. 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 Current occupational exposures/hazards: No Cognitive needs: No Hearing needs: No Vision needs: No Physical Exam 2 Vital Signs: Vital Signs: Last Vital Signs Temp 97.9 F 02/17/24 22:38 Pulse 67 02/17/24 22:38 Resp 16 02/17/24 22:38 BP 133/74 02/17/24 22:38 Pulse Ox 96 02/17/24 22:38 O2 Del Method Room Air 02/17/24 22:38 BMI result Body Mass Index 22.7 Const: General: healthy appearing, comfortable, no acute distress, alert and awake Nutritional Appearance: well nourished Orientation/consciousness: p atient oriented x3 HEENT: Head: Yes normocephalic and Yes atraumatic Eyes: Eyelids: Yes eyelids normal Conjunctivae: conjunctivae normal S clerae: sclerae normal Corneas: corneas normal Pupils: Equal, round and reactive pupils present EOM: EOMs intact bilaterally Neck: Neck: Yes full ROM Resp: Effort & Inspection: normal respiratory effort, able to speak in complete sentences, no audible wheezes and not labored Auscultation: clear to auscultation bilaterally Cardio: Rate: regular rate Rhythm: regular rhythm GI: Inspection: No distended Palpation (GI): Soft to palpation, not firm, Tenderness to palpation present (GI) in the epigastrum, no guarding and not rigid Skin: General skin exam: elasticity normal Neuro: General: patient oriented x3 Cranial nerves: Yes Equal, round and reactive pupils present and Yes Bilaterally intact EOM present Cognition (Neuro): normal cognition Course Course Course Narrative: RME performed by Martha Sykes PA-C. Patient is a 53 year old assigned female at presenting to the emergency department with chest pain. Patient states over the last 2 days she has felt generally unwell with chest pain. Detailed physical exam and review of systems are deferred to the special technical operations officer. EKG, labs, imaging, and swabs ordered. Patient placed back in the waiting room pending room availability and results. Medications Administered Discontinued Medications Generic Name Dose Route Start Last Admin Trade Name Mariano PRN Reason Stop Dose Admin Acetaminophen 650 mg 02/17/24 20:03 02/17/24 20:05 Acetaminophen 325 Mg Tablet PO 02/17/24 20:04 650 mg ONCE ONE Administration Al Hydroxide/Mg Hydroxide 30 ml 02/17/24 22:04 02/17/24 22:40 Magnesium Hydrox/Alum Hydrox 30 Ml Oral.Susp PO 02/17/24 22:05 30 ml ONCE ONE Administration Lidocaine HCl 15 ml 02/17/24 22:04 02/17/24 22:40 Lidocaine Hcl Viscous 2 % 15 Ml Solution MUCOUS MEM 02/17/24 22:05 15 ml ONCE ONE Administration Ondansetron HCl 4 mg 02/17/24 22:04 02/17/24 22:40 Ondansetron Odt 4 Mg Tab.Rapdis TRANSLINGU 02/17/24 22:05 4 mg ONCE ONE Administration Medical Decision Making Medical Decision Making MDM Narrative: 53-year-old female presents for evaluation of chest pressure. Her symptoms started over 24 hours ago. She describes chest pain but then indicates the area in her epigastric region. She is tender any epigastric region. She is associated bloating and gas production. Her symptoms are most consistent with GERD. On review of her history she has a history of H pylori infection which may be recurrent at this time. On review of her workup is largely unremarkable. Her EKG is nonischemic, her troponin is less than 2.7 despite over 24 hours of describe chest pain. Her bilirubin is within normal limits, LFTs are within normal limits. Biliary colic is less likely. The patient is also not tender in the right upper quadrant. Plan to treat with a GI cocktail Differential Diagnosis Differential Diagnoses: The differential diagnosis associated with the presentation includes GERD Chest pain ACS Costochondritis Chest wall pain Abdominal pain Ileus Constipation Biliary colic Pancreatitis Admission/Observation Consideration of admission/observation: Escalation of care including admission/observation considered Consider admission for chest pain however the patient ruled out for ACS Lab Data MDM Lab Attestation statement: I reviewed the patient's lab results. No leukocytosis or anemia. No reportedly count. No electrolyte abnormalities. Troponin undetectable, LFTs reassuring 02/17/24 15:56 02/17/24 15:56 Labs: Lab Results 02/17/24 Range/Units 15:56 WBC 7.7 (4.8-10.8) X10*3/uL RBC 4.93 (4.20-5.50) X10*6/uL Hgb 13.9 (12.0-16.0) g/dl Hct 42.7 (37.0-47.0) % MCV 86.6 (80.0-98.0) fL MCH 28.2 (27.0-33.0) pg MCHC 32.6 (31.0-35.0) g/dl RDW 13.2 (11.0-16.0) % Plt Count 272 (160-400) X10*3/uL MPV 9.3 L (9.4-12.3) fL Immature Gran % (Auto) 0.3 (0.0-0.4) % Neut % (Auto) 68.7 (45-73) % Lymph % (Auto) 20.2 (20-40) % [place] % (Auto) 8.3 (2-11) % Eos % (Auto) 1.7 (0-4) % Baso % (Auto) 0.8 (0-2) % Lymph # (Auto) 1.6 (1.2-4.9) X10*3/uL [place] # (Auto) 0.6 (0.1-1.2) X10*3/uL Eos # (Auto) 0.1 (0.0-0.4) X10*3/uL Baso # (Auto) 0.1 (0.0-0.2) X10*3/uL Abs Immat Gran (auto) 0.02 (0.00-0.03) X10*3/uL Absolute Neuts (auto) 5.3 (2.0-8.3) x10*3/uL Absolute Nucleated RBC 0.000 (0.0-0.012) X10*3/uL Nucleated RBC % (auto) 0.0 (0.0-0.2) /100WBC Sodium 140 (135-145) mmol/L Potassium 4.1 (3.3-5.1) mmol/L Chloride 105 (96-108) mmol/L Carbon Dioxide 28 (22-29) mmol/L Anion Gap 11 L (12-20) BUN 16 (9-16) mg/dL Creatinine 0.76 (0.5-1.4) mg/dL Estim Creat Clear Calc 72.2 Estimated GFR > 60 Random Glucose 97 (60-115) mg/dL Calcium 9.9 (8.4-10.2) mg/dL Magnesium 2.0 (1.6-2.6) mg/dL Total Bilirubin 0.3 (0.0-1.0) mg/dL AST 22 (5-31) U/L ALT 24 (0-31) U/L Alkaline Phosphatase 137 H (39-117) U/L Troponin I High Sens < 2.7 (<3.5-17.0) ng/L Total Protein 8.0 (6.5-8.0) g/dL Albumin 4.3 (3.5-5.0) g/dL Influenza Type A (PCR) NEGATIVE (Negative) Influenza Type B (PCR) NEGATIVE (Negative) RSV RNA Qual (PCR) NEGATIVE (Negative) SARS-CoV-2 RNA (RT-PCR) NEGATIVE (Negative) Independent Interpretation I performed an independent interpretation of an: EKG (Normal sinus rhythm with a rate of 70 beats per minute. No ST segment elevations or depressions) Discharge Plan Discharge Clinical Impression: Chest pain Patient Disposition: Home, Self-Care Instructions: Chest Pain (ED) Additional Instructions: Your workup in the ER today was reassuring. This includes your blood work, EKG. Your chest x-ray was clear Your symptoms may be related to heartburn/GERD Follow-up with your primary doctor Return for new or worsening symptoms Prescriptions: New omeprazole 20 mg capsule,delayed release(DR/EC) 20 mg PO DAILY Qty: 14 0RF No Action cetirizine [All Day Allergy (cetirizine)] 10 mg tablet 10 mg PO DAILY PRN (Reason: allergy symptoms) 90 Days Qty: 90 2RF sumatriptan succinate 25 mg tablet 25 mg PO Q2-4H PRN (Reason: migraine headache) 30 Days Qty: 9 0RF Rx Instructions: do not exceed 8 doses per 24 hrs bisacodyl [Dulcolax (bisacodyl)] 5 mg tablet,delayed release (DR/EC) 20 mg PO ONCE PRN (Reason: colonoscopy prep) 1 Days Qty: 4 0RF Rx Instructions: Day before procedure @ 12 noon Take 4 tablets by mouth followed by large glass of water Stand Alone Forms: Work/School Release Print Language: [place]
[2024-02-17 16:02] LABS: MANUAL DIFF FLAG NO
[2024-02-17 16:06] LABS: Basophils Absolute Auto 0.1 X10*3/uL (0.0-0.2); Basophils Percent Auto 0.8 % (0-2); Eosinophils Absolute Auto 0.1 X10*3/uL (0.0-0.4); Eosinophils Percent Auto 1.7 % (0-4); Hematocrit 42.7 % (37.0-47.0); Hemoglobin 13.9 g/dl (12.0-16.0); Imm Gran Abs Auto 0.02 X10*3/uL (0.00-0.03); Imm Gran Pct Auto 0.3 % (0.0-0.4); Lymphocytes Absolute Auto 1.6 X10*3/uL (1.2-4.9); Lymphocytes Percent Auto 20.2 % (20-40); Mean Corpuscular HGB Conc 32.6 g/dl (31.0-35.0); Mean Corpuscular Hemoglobin 28.2 pg (27.0-33.0); Mean Corpuscular Volume 86.6 fL (80.0-98.0); Mean Platelet Volume 9.3 fL (9.4-12.3); Monocytes Absolute Auto 0.6 X10*3/uL (0.1-1.2); Monocytes Percent Auto 8.3 % (2-11); Neutrophils Absolute Auto 5.3 x10*3/uL (2.0-8.3); Neutrophils Percent Auto 68.7 % (45-73); Platelet Count 272 X10*3/uL (160-400); Red Blood Count 4.93 X10*6/uL (4.20-5.50); Red Cell Distribution Width 13.2 % (11.0-16.0); White Blood Count 7.7 X10*3/uL (4.8-10.8)
[2024-02-17 16:19] LABS: Alanine Aminotransferase 24 U/L (0-31); Albumin Level 4.3 g/dL (3.5-5.0); Alkaline Phosphatase 137 U/L (39-117); Anion Gap 11 (12-20); Aspartate Amino Transferase 22 U/L (5-31); Bilirubin Total 0.3 mg/dL (0.0-1.0); Blood Urea Nitrogen 16 mg/dL (9-16); Calcium 9.9 mg/dL (8.4-10.2); Carbon Dioxide 28 mmol/L (22-29); Chloride 105 mmol/L (96-108); Creatinine Clr Calc Pharmacy 72.2; Estimated Glomerular Filt Rate > 60; Glucose Random 97 mg/dL (60-115); Potassium 4.1 mmol/L (3.3-5.1); Sodium 140 mmol/L (135-145)
[2024-02-17 16:23] LABS: Troponin-I High Sensitivity < 2.7 ng/L (<3.5-17.0)
[2024-02-17 16:40] LABS: Influenza A PCR NEGATIVE (Negative); Influenza B PCR NEGATIVE (Negative); Resp Syncy Virus RNA Qual PCR NEGATIVE (Negative); SARS COV2 PCR INHOUSE NEGATIVE (Negative)
[2024-02-17 20:03] VITALS: BP 141/64; PULSE 74; RESP 16; TEMP 36.6; O2SAT 100
[2024-02-17] MEDS: Acetaminophen 325 MG TABLET 650 MG PO (20:05)
[2024-02-17 21:00] VITALS: BP 138/67; PULSE 69; RESP 18; O2SAT 97
[2024-02-17 22:38] VITALS: BP 133/74; PULSE 67; RESP 16; TEMP 36.6; O2SAT 96
[2024-02-17] MEDS: Lidocaine HCl Viscous 2 % 15 ML SOLUTION MUCOUS MEM (22:40)
[2024-02-17] MEDS: Magnesium Hydrox/Alum Hydrox 30 ML ORAL.SUSP PO (22:40)
[2024-02-17] MEDS: Ondansetron ODT 4 MG TAB.RAPDIS TRANSLINGU (22:40)
[2024-02-17 23:10] VITALS: BP 133/74; PULSE 67; RESP 16; TEMP 36.6; O2SAT 96
== END 2024-02-17 23:12 | disposition home or self-care (01) ==
PROVIDERS: Physician Assistant Medical; Emergency Provider Internal Medicine; PCP Internal Medicine
DX: R07.9 Chest pain, unspecified (principal); R51.9 Headache, unspecified; R10.13 Epigastric pain; R68.83 Chills (without fever); Z03.818 Encounter for observation for suspected exposure to other biological agents ruled out
CPT/HCPCS: 0241U; 71046; 80053; 83735; 84484; 85025; 93005; 99283; 99285

== ENCOUNTER → 2024-02-17 14:56 | Outpatient (BNV) | payer OTHER, SELFPAY | PROVIDERS: PCP Internal Medicine; Visit Provider Internal Medicine | DX: R07.89 Other chest pain (principal) | CPT/HCPCS: 93010 ==

== ENCOUNTER 2024-03-08 07:54 | Outpatient (AMB) | payer OTHER, SELFPAY ==
--- NOTE | 2024-03-08 07:55 | MHC.PC.OV ---
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 Accompanied by: Self / Same As Patient Allergies No Known Allergies Allergy (Unknown, Verified 03/08/24 08:10) NOT APPLICABLE Medication List - Last Reconciled 03/08/24 by Gisele Dickerson MD cetirizine (All Day Allergy (cetirizine)) 10 mg PO DAILY PRN 90 days pantoprazole 40 mg PO DAILY 30 days sucralfate 10 mL PO QIDACHS Tobacco use date assessed: 01/22/24 Dental Screening Dental Screen Date: 03/08/24 Did you have a dental visit in the last 12 months?: No Did you have a dental problem in the last 6 months where you did not have access to dental care?: No Was dental information given to patient?: Patient has dentist HPI HPI Comments History of Present Illness Details This is a 53-year-old female with seasonal allergic rhinitis, pure hypercholesterolemia and chronic GERD that complains chest pain located in the left side of the chest that can happen at rest occasionally. She went to ER last month and had an EKG showing normal sinus rhythm. I will order a stress test. She also has epigastric burning like pain and is compliant with pantoprazole and Carafate. I will order upper GI series to check her chronic GERD. She has an appointment with Gastroenterology next month. On antihistamines for her allergic rhinitis and was told to avoid pollen. Cholesterol elevated but does not require any statins. Was advised to follow a low-cholesterol diet. [facility] Medical History (Updated 03/08/24 @ 09:05 by Gisele Dickerson MD) Lump in armpit Allergic rhinitis Hypovitaminosis D Urticaria Hand numbness Family history of diabetes mellitus Abscess of axilla, left Overactive bladder Hospital discharge follow-up Incontinence Recurrent UTI Chronic constipation RUQ abdominal pain Constipation Hypovitaminosis D Irregular menses Urinary incontinence GERD (gastroesophageal reflux disease) Migraine headache with aura History of positive PPD Surgical History Hx of colonoscopy S/P tendon repair History of dilation and curettage History of removal of ovarian cyst History of tubal ligation Family History Father Stomach cancer Mother Heart disease Arthritis Elevated cholesterol Diabetes Hypertension Brother No problems noted. Brother No problems noted. Sister No problems noted. Sister No problems noted. Sister No problems noted. Sister No problems noted. Son No problems noted. Son No problems noted. Son No problems noted. 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 1. Little interest or pleasure in doing things: not at all 2. Feeling down, depressed, or hopeless: not at all 3. Trouble falling or staying asleep, or sleeping too much: not at all 4. Feeling tired or having little energy: not at all 5. Poor appetite or overeating: not at all 6. Feeling bad about yourself - or that you are a failure or have let yourself or your family down: not at all 7. Trouble concentrating on things, such as reading the newspaper or watching television: not at all 8. Moving or speaking so slowly that other people could have noticed. Or the opposite - being so fidgety or restless that you have been moving around a lot more than usual: not at all 9. Thoughts that you would be better off or of hurting yourself in some way: not at all Total score: 0 Depression Screening Interpretation: Negative Depression Screening Done: Yes 62110 - PHQ-9 Billing: Yes Source: Developed by Drs. Clarke Loomis, Porsche Del Rio, Trent Roberts and colleagues, with an educational whitney from [employer]. Thrive Questionnaire Date Thrive assessed: 03/08/24 I am a: Patient What is your living situation today?: I have a steady place to live Within the past 12 months, did the food you bought not last and you didn't have the money to get more?: Never true Within the past 12 months, did you worry whether your food would run out before you got money to buy more?: Never true Do you have trouble paying for medicines?: No Do you have trouble getting transportation to medical appointments?: No Do you have trouble paying your heating and electricity bill?: No Do you have trouble taking care of your child, family member or friend?: No Do you have trouble with day-to-day activities such as bathing, preparing meals, shopping, managing finances, etc.?: No Are you currently unemployed and looking for a job?: No Are you interested in more education?: No Please select the resources that you would like help with: None Currently or been in a relationship where the following occur: no concerns reported THRIVE Score: 0 AUDIT C Alcohol Use Questionnaire (AUDIT-C) 1. How often do you have a drink containing alcohol?: Never Total Score: 0 MONI-7 AMB Questionnaire MONI-7 Date MONI - 7 assessed: 03/08/24 Feeling nervous, anxious, or on edge: 0 = Not at all Not being able to stop or control worryin = Not at all Worrying too much about different things: 0 = Not at all Trouble relaxin = Not at all Being so restless that it is hard to sit still: 0 = Not at all Becoming easily annoyed or irritable: 0 = Not at all Feeling afraid as if something awful might happen: 0 = Not at all Total MONI-7 score (0-4 normal; 5-9 mild; 10-14 moderate; 15-21 severe): 0 Source: Developed by Drs. Clarke Loomis, Porsche Del Rio, Trent Roberts and colleagues, with an educational whitney from [employer]. MONI-7 Assessment Billing MONI-7 Assessment Tool: MONI-7 Assessment 80234 Review of Systems Const All systems reviewed & are unremarkable except as noted in HPI and below Eyes Reports no additional complaints, Denies change in vision and Denies other visual disturbances Card Reports chest pain at rest, Denies chest pain with activity, Denies edema, Denies irregular heart rhythm, Denies claudication, Denies dyspnea, Denies dyspnea on exertion, Denies orthopnea, Denies paroxysmal nocturnal dyspnea and Denies slow heart rate Resp Denies cough, Denies dyspnea and Denies dyspnea on exertion GI Reports abdominal pain and Reports heartburn Physical exam (Primary Care) Vital Signs: Last Vital Signs BP 120/72 03/08/24 07:58 BMI result Body Mass Index 20.6 Tobacco/Smoking Status: Tobacco use Status Tobacco use date assessed 01/22/24 03/08/24 07:55 Patient Tobacco Use Status Never used Tobacco 03/08/24 07:55 e-Cigarette/Vaping Use Never Used 03/08/24 07:55 PHQ-9: PHQ-9 Score PHQ-9: Total score 0 03/08/24 08:14 Depression Screening Interpretation: Negative Thrive Assessment: Date of Thrive Assessment Date Thrive assessed 03/08/24 03/08/24 08:04 Currently or been in a relationship where the following occur: no concerns reported Resp Effort & Inspection: normal respiratory effort Auscultation: clear to auscultation bilaterally Cardio Jugular venous distension: no JVD Rate: regular rate Rhythm: regular rhythm Heart sounds: S1 normal heart sound present and S2 normal heart sound present Extrem General: Yes full ROM Assessment and Plan Assessment & Plan (1) Seasonal allergic rhinitis due to pollen: Code(s): J30.1 - Allergic rhinitis due to pollen Plan: Continue antihistamines. (2) Chronic GERD: Code(s): K21.9 - Gastro-esophageal reflux disease without esophagitis Plan: Continue pantoprazole and Carafate. Follow-up with GI. (3) Chest pain: Code(s): R07.9 - Chest pain, unspecified Qualifiers: Chest pain type: precordial pain Qualified Code(s): R07.2 - Precordial pain Plan: Stress test ordered. (4) Pure hypercholesterolemia: Code(s): E78.00 - Pure hypercholesterolemia, unspecified Plan: Continue low-cholesterol diet. Orders: Orders CA stress test Today R07.9 - Chest pain, unspecified [place] upper GI series Today R10.13 - Epigastric pain Coding Level of Care Code Est Pt Level 4 (43529) Complex EM visit Add On G2211 Diagnoses Seasonal allergic rhinitis due to pollen J30.1 Chronic GERD K21.9 Precordial pain R07.2 Chest pain type: precordial pain Pure hypercholesterolemia E78.00 Additional Codes MONI-7 Assessment Billing - MONI-7 Assessment Tool: MONI-7 Assessment 14906 ([id number]) Time Spent (min) 22
[2024-03-08 07:58] VITALS: BP 120/72; BMI 20.6
== END 2024-03-08 08:23 | disposition home or self-care (01) ==
LOC: HO.HMGH 07:54
PROVIDERS: PCP Internal Medicine; Visit Provider Internal Medicine
DX: J30.1 Allergic rhinitis due to pollen (principal); K21.9 Gastro-esophageal reflux disease without esophagitis; R07.2 Precordial pain; E78.00 Pure hypercholesterolemia, unspecified
CPT/HCPCS: 99214

== ENCOUNTER → 2024-04-05 08:41 | Outpatient (REF) | payer OTHER, SELFPAY ==
--- NOTE | 2024-04-05 08:44 | CA_ITS ---
Acquisition Time: 2024-04-05 09:02:52 Total Exercise Time: 00:04:08 Test Indications: CP Medications: SEE H Protocol: CASEY Max HR: 115 BPM 69% of Pred: 165 BPM Max BP: 158/062 mmHG Max Work Load: 5.9 METS Exericse stress test exercise 4 mi n8 sec of Casey protocol achieving 69% MPHR, with moderate SOB, 4/10 left lower chest stabbing at baseline. 0/10 during exercise, without arrhythmias, with normotsive response to exercise, with nondiagnoisitic EKGs. Test reviewed with Dr. Noriega Referred By: Gisele Dickerson Overread By: Sobeida Carvajal
== END ==
LOC: HO.CARD 08:41
PROVIDERS: PCP Internal Medicine; Visit Provider Internal Medicine
DX: R07.9 Chest pain, unspecified (principal)
CPT/HCPCS: 93017

== ENCOUNTER → 2024-04-05 08:44 | Outpatient (BNV) | payer OTHER, SELFPAY | PROVIDERS: PCP Internal Medicine; Visit Provider Nurse Practitioner | DX: R06.02 Shortness of breath (principal); R07.9 Chest pain, unspecified | CPT/HCPCS: 93016; 93018 ==

== ENCOUNTER 2024-04-23 12:50 | Outpatient (AMB) | payer OTHER, SELFPAY ==
--- NOTE | 2024-04-23 12:54 | A.OFFVIS_ITS ---
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 She is doing well with no concerns. Attempting to eat a healthy diet with calcium and vit D, and stays active with exercise. Currently not sexually active. Denies any vaginal dryness or irritation. STI testing offered; she accepts. Last pap smear; 2022. Last mammogram; 2022. Colonoscopy is booked. Denies any family history of breast, ovarian or colon cancer. [facility] Medical History Lump in armpit Allergic rhinitis Hypovitaminosis D Urticaria Hand numbness Family history of diabetes mellitus Abscess of axilla, left Overactive bladder Hospital discharge follow-up Incontinence Recurrent UTI Chronic constipation RUQ abdominal pain Constipation Hypovitaminosis D Irregular menses Urinary incontinence GERD (gastroesophageal reflux disease) Migraine headache with aura History of positive PPD Surgical History Hx of colonoscopy S/P tendon repair History of dilation and curettage History of removal of ovarian cyst History of tubal ligation Family History Father Stomach cancer Mother Heart disease Arthritis Elevated cholesterol Diabetes Hypertension Brother No problems noted. Brother No problems noted. Sister No problems noted. Sister No problems noted. Sister No problems noted. Sister No problems noted. Son No problems noted. Son No problems noted. Son No problems noted. 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 occupational exposures/hazards: No Cognitive needs: No Hearing needs: No Vision needs: No Female Reproductive History Menstrual Age of Menarche: 12 Total pregnancies: 4 Full term: 3 Number of Living Children: 3 Ab spontaneous: 1 Date of last pap smear: 11/15/22 (neg pap and hpv) Date of Mammogram: 08/12/23 (Birad 1) Review of Systems Const All systems reviewed & are unremarkable except as noted in HPI and below Reports as per HPI Eyes Reports no additional complaints ENT Reports no additional complaints Card Reports no additional complaints Resp Reports no additional complaints GI Reports as per HPI and Reports no additional complaints Reports as per HPI Musc Reports no additional complaints Skin/Breast Reports as per HPI Neuro Reports no additional complaints Psych Reports no additional complaints Endo Reports no additional complaints Demarco/Lymph Reports no additional complaints Aller/Immun Reports no additional complaints Physical Exam Vital Signs: Last Vital Signs BP 118/70 04/23/24 12:56 BMI result Body Mass Index 20.9 Const General: cooperative, healthy appearing, no acute distress, well developed and alert Orientation/consciousness: patient oriented x3 HEENT Head: Yes normal to inspection Eyes General: appearance normal, both eyes and all related structures Neck Neck: Yes normal visual inspection Thyroid: Thyroid normal Chest Chest palpation & inspection: normal inspection of the chest and other (no puckering, dimpling, peau de orange, retraction, discharge, masses) Breast/axilla inspection: normal inspection of the breasts Breast/axilla palpation: normal palpation of the breasts Resp Effort & Inspection: normal respiratory effort GI Inspection: Yes normal to inspection Palpation (GI): Soft to palpation Rectal Exam - Female: deferred General: Yes bladder normal to palpation External Female Exam: normal external appearance and normal appearance of the urethra Speculum Exam - Vagina: normal appearance of the vagina, normal palpation, normal vaginal discharge and vagina atrophic Speculum Exam - Cervix: normal appearance of the cervix, normal palpation and Nabothian cyst present Bimanual exam- vagina & uterus: normal bimanual exam, normal palpation, uterine size normal, bladder normal to palpation, normal palpation and non-tender Bimanual Exam- Adnexa, other: no masses Skin General skin exam: no rashes or lesions noted Rashes: no rashes Neuro General: patient oriented x3 Cognition (Neuro): normal cognition Extrem General: Yes normal to inspection Psych Attitude: cooperative Thought process: Normal thought process present Assessment & Plan Assessment & Plan (1) Encounter for well woman exam with routine gynecological exam: Code(s): Z01.419 - Encounter for gynecological examination (general) (routine) without abnormal findings Category: Medical Plan Discussed: Current recommendations for pap smears per ASCCP guidelines. Breast awareness, periodic self breast exams and yearly mammogram. Maintain a healthy lifestyle, well balanced diet including Calcium 1,200 mg and Vitamin D 600 IU daily, and routine exercise. Use of condoms for STI prevention if indicated. Contact the office with any postmenopausal bleeding. Advise her primary care has ordered fasting labs to ask them to collect everything all at once and to be NPO the morning of lab draw. Patient verbalizes understanding and agrees to the plan of care. She was given opportunity to ask questions and all questions were answered to the best of my ability. RTO in 1 year for annual director strategy exam. This note is constructed using voice recognition software. While every effort has been made to ensure accuracy, gear shaper errors may have been included. Orders: Orders Bacterial Vaginosis Panel Today Z20.2 - Contact with and (suspected) exposure to infections with a predominantly sexual mode of transmission Hepatitis C Antibody Reflex Today Z20.2 - Contact with and (suspected) exposure to infections with a predominantly sexual mode of transmission Hepatitis B Core Antibody Today Z20.2 - Contact with and (suspected) exposure to infections with a predominantly sexual mode of transmission CT NG by PCR Today Z20.2 - Contact with and (suspected) exposure to infections with a predominantly sexual mode of transmission HIV Ab/Ag Today Z20.2 - Contact with and (suspected) exposure to infections with a predominantly sexual mode of transmission Syphilis Screen Today Z20.2 - Contact with and (suspected) exposure to infections with a predominantly sexual mode of transmission Coding Level of Care Code Est Pt Prev Care 40-64y(80205) Diagnoses Encounter for well woman exam with routine gynecological exam Z01.419
[2024-04-23 12:56] VITALS: BP 118/70; BMI 20.9
== END 2024-04-23 13:28 | disposition home or self-care (01) ==
PROVIDERS: PCP Internal Medicine; Visit Provider Advanced Practice Midwife
DX: Z01.419 Encounter for gynecological examination (general) (routine) without abnormal findings (principal)
CPT/HCPCS: 99396

== ENCOUNTER 2024-04-23 12:50 | Outpatient (REF) | payer OTHER, SELFPAY ==
[2024-04-23 18:09] LABS: Bacterial Vaginosis PCR NEGATIVE (Negative); Candida Group PCR NOT DETECTED (Not Detect); Candida glab krusei PCR NOT DETECTED (Not Detect); Trichomonas vaginalis PCR NOT DETECTED (Not Detect)
[2024-04-23 18:41] LABS: CT PCR NOT DETECTED (Not Detect.); NG PCR NOT DETECTED (Not Detect.)
== END 2024-04-23 12:51 | disposition home or self-care (01) ==
LOC: HO.LAB 12:50
PROVIDERS: PCP Internal Medicine; Visit Provider Advanced Practice Midwife
DX: Z01.419 Encounter for gynecological examination (general) (routine) without abnormal findings (principal); Z20.2 Contact with and (suspected) exposure to infections with a predominantly sexual mode of transmission
CPT/HCPCS: 0352U; 87491; 87591

== ENCOUNTER 2024-04-23 13:24 | Outpatient (REF) | payer OTHER, SELFPAY | END 2024-04-23 13:25 | disposition home or self-care (01) | LOC: HO.LNP 13:24 | PROVIDERS: Visit Provider Advanced Practice Midwife | DX: Z13.89 Encounter for screening for other disorder (principal) ==

== ENCOUNTER 2024-05-06 06:52 | Outpatient (REF) | payer OTHER, SELFPAY ==
[2024-05-06 08:02] LABS: HBc Num1 0.38 S/CO (0.00-0.79); HIV AB/AG Nonreactive (Nonreactive); HIV Num 1 0.05 S/CO (0.00-0.99); Hepatitis B Core Antibody Nonreactive (Nonreactive); Syphilis Screen Nonreactive (Nonreactive); ~Hepatitis C Antibody Nonreactive (Nonreactive)
== END 2024-05-06 06:53 | disposition home or self-care (01) ==
LOC: HO.LAB 06:52
PROVIDERS: Absent Provider Internal Medicine; PCP Internal Medicine; Visit Provider Advanced Practice Midwife
DX: Z20.2 Contact with and (suspected) exposure to infections with a predominantly sexual mode of transmission (principal)
CPT/HCPCS: 36415; 86704; 86780; 86803; 87389

== ENCOUNTER 2024-06-08 07:20 | Outpatient (REF) | payer OTHER, SELFPAY ==
--- NOTE | ~2024-06-08 | FL_ITS ---
EXAMINATION: XR FLUOROSCOPY UPPER GI WITH AIR CLINICAL INFORMATION: Epigastric pain. COMPARISON: 08/21/2016. TECHNIQUE: Fluoroscopic air contrast upper GI examination was performed utilizing standard techniques with thin and thick barium and effervescent granules. Numerous spot images were obtained. FINDINGS: Dual and single contrast images of the esophagus demonstrate normal caliber, contour, and mucosal pattern. No evidence of stricture, mass, or ulcerations identified. Esophageal peristalsis is mildly disorganized. A small type I hiatal hernia is present. Gastroesophageal reflux is seen up to the level of the thoracic inlet. Dual contrast and single contrast images of the stomach demonstrated a normal contour. The areae gastricae have a mildly thickened appearance, suggestive of gastritis. In addition there are multiple foci of contrast pooling in the fundus of the stomach that may represent small superficial aphthous ulcers. No masses are seen. Contrast freely passed into the gastric antrum and duodenal bulb without delay. Single and air-contrast images of the duodenal bulb demonstrate no abnormality. The duodenal sweep has a normal appearance, course, and mucosal fold appearance. The imaged proximal jejunum has a normal fold pattern and caliber. FLUOROSCOPY TIME: 5 minutes 43 seconds Number of Spot Images: 8 Number of Cine: 13 DOSE AREA PRODUCT: 2700 uGy-m2 (microgray-meter squared) FL/FL upper GI w air IMPRESSION: 1. Small type I hiatal hernia. 2. Significant gastroesophageal reflux. 3. Thickened appearance of the areae gastricae. In addition there are multiple foci of contrast pooling in the fundus the stomach. These findings are suggestive of erosive gastritis. Recommend correlation of EGD. This procedure was performed by Miguel Angel Sharp PA-C, and supervised by Dr. Carvajal Electronically signed by: Chito Carvajal MD 06/09/2024 01:41 PM EDT
== END 2024-06-08 07:21 | disposition home or self-care (01) ==
LOC: HO.XRAY 07:20
PROVIDERS: PCP Internal Medicine; Visit Provider Internal Medicine
DX: R10.13 Epigastric pain (principal)
CPT/HCPCS: 74246

== ENCOUNTER → 2024-06-08 07:21 | Outpatient (BNV) | payer OTHER, SELFPAY | PROVIDERS: PCP Internal Medicine; Visit Provider Radiology Diagnostic Radiology | DX: R10.13 Epigastric pain (principal) | CPT/HCPCS: 74246 ==

== ENCOUNTER 2024-08-14 10:08 | Outpatient (REF) | payer OTHER, SELFPAY ==
--- NOTE | ~2024-08-14 | MM_ITS ---
EXAMINATION: MM SCREENING DIGITAL BREAST TOMOSYNTHESIS, BILATERAL CLINICAL INFORMATION: Screening. Asymptomatic. COMPARISON: Mammography: Comparison is made with available priors TECHNIQUE: Digital breast mammography with tomosynthesis is performed in both the craniocaudal and mediolateral oblique views along with computer-aided detection (CAD). FINDINGS: The breasts are heterogeneously dense, which may obscure small masses (ACR BI-RADS breast composition Category c). There are no significant masses, abnormal calcifications, or other abnormalities. MM/MM tomosynthesis screening BI IMPRESSION: No mammographic evidence of malignancy. ASSESSMENT: BI-RADS BI-RADS 1 - Negative RECOMMENDATION: Routine annual mammography screening. 1 year F/U This examination should not preclude the clinical evaluation of a suspicious palpable abnormality. This patient's information was entered into a reminder system with a target due date for their next mammogram. Electronically signed by: Lizbeth Millan DO 08/25/2024 12:22 PM [facility]
== END 2024-08-14 10:09 | disposition home or self-care (01) ==
LOC: HO.MAMMO 10:08
PROVIDERS: PCP Internal Medicine; Visit Provider Internal Medicine
DX: Z12.31 Encounter for screening mammogram for malignant neoplasm of breast (principal)
CPT/HCPCS: 77063; 77067

== ENCOUNTER → 2024-08-14 10:45 | Outpatient (BNV) | payer OTHER, SELFPAY | PROVIDERS: PCP Internal Medicine; Visit Provider Internal Medicine | DX: Z12.31 Encounter for screening mammogram for malignant neoplasm of breast (principal) | CPT/HCPCS: 77063; 77067 ==

== ENCOUNTER 2024-09-06 07:24 | Outpatient (AMB) | payer OTHER, SELFPAY ==
--- OUTSIDE RECORDS SUMMARY | 2024-09-06 07:26 | XMS_ITS | Continuity of Care Document ---
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 Name Role Phone Bryant THOMPSON, RVT, CARMEN, Clarke Unavailable U navailable Allergies, Adverse Reactions, Alerts Substance Reaction Status Criticality No Known Allergies Active No Inform ation Procedures Procedure Date Duplex Scan-extrem Veins; Uni/ CT & [place] N Endovenous Laser, 1st Vein- CT & [place] Ultrason Guidan Needle Bx-rad- CT & MA N Inj Sclerosing Solution; Sngl- CT & MA N Offic/outpt E&m Estab 5 Min Trial- Telem edicine CT & [place] Offic Cons New/estab Mod 40 Mi- CT & [place] Surgical Stockings CVR Reveal Thigh High -30 Duplex Scan-extrem Veins; Comp- CT & MA Advance Directives Directive Yes / No Effective Date File Name No Information Encounters Encounter Description Practice Location Reason(s) For Visit Diagnoses Date Provider Providers Copied on Encounter [facility], [address] [place] [address] [address], [place], [id number], [place] tel:[phone] CV[facility] - [facility] Encounter for follow-up examination after completed treatment for conditions other than malignant neoplasmPain in right leg 4 Bryant THOMPSON RVT, CARMEN Mir. [address], [address], [facility], [place], [id number] , [place]. tel:[phone] Referring Provider: Gisele Maloney MD, [address], [address] D/B/A: [place], [address]. tel:[phone] [facility], [address] [place] [address] [address], [id number], [place] tel:[phone] [facility] - [place] [facility] [place] Varicose veins of right lower extremity with other complication s 4 Bryant THOMPSON RVT, CARMEN Mir. [address], [address], [facility], [place], [id number] , [place]. tel:[phone] Referring Provider: Gisele Maloney MD, [address] , [address] D/B/A: [place], [address]. tel:[phone] [facility], [address] [place] [address] [address], [id number], [place] tel:[phone] CV[facility] - [place] No Information 4 Bryant THOMPSON RVT, CARMEN Mir. [address], [address], [facility], [place], [id number] , [place]. tel:[phone] Offic/outpt E&m Estab 5 Min Trial- Telemedicine CT & [place] [facility], [address] [place] [address] [address], [id number], [place] tel:[phone] [facility] - [place] Chronic venous hypertension (idiopathic) with other complication s of bilateral lower extremity 4 Bryant THOMPSON RVT, CARMEN Mir. [address], [address], [facility], [place], [id number] , [place]. tel:[phone] Referring Provider: Gisele Maloney MD, [address] , [address] D/B/A: [facility], [place], [address]. tel:[phone] Offic Cons New/estab Mod 40 Mi- CT & [place] [facility], [address] [place] [address] [address] [address], [id number], tel:[phone] CV[facility] - [place] Chronic venous hypertension (idiopathic) without complication s of bilateral lower extremityRes tless legs syndromeVeno us insufficienc y (chronic) (peripheral) Cramp and spasmLocaliz ed edema Sep-0 4 Bryant THOMPSON RVT, CARMEN Mir. [address] [place] [address], [place], [place], [id number] , [place]. tel:[phone] [facility], [address] [place] [address] [address] [address], [id number], tel:[phone] CV[facility] - [place] Pain in right legPain in left leg Sep-0 4 Bryant THOMPSON RVT, CARMEN Mir. [address] [place] [address], [place], [place], [id number] , [place]. tel:[phone] Referring Provider: Clarke Hurtado MD, RVT, CARMEN, [address] [place] [address], [id number]. tel:[phone] Family History Family Member Type Diagnosis Age At Onset No Information Payers Payer name Insurance type Covered libertarian ID [facility]() [facility] [id number] Social History Type Description Quantity Date Captured Comments Sex Female Smoking Status No Information Chief Complaint And Reason For Visit No Information Reason For Referral Reason For Referral No Information Plan Of Treatment Date Type Action Status Goal Tobacco cessation counseling completed Goal Diet education completed Referral Ordered: Weight management: Referral to physician timeframe: 3 Months (related to Body mass index (BMI) 22.0-22.9, adult) ordered Appointment Leonor Perez BOOKED Appointment Leonor Perez BOOKED History Of Present Illness Encounter Date Complaint History Of Prese nt Illness No Information Functional Status Date Functional Assessmen t No Information Instructions Date Instruction Additional Infor mation Pre and post instruc tions reviewed and provided Related to Chronic venous hypertension (idiopathic) without complications of bilateral lower extremity Patient education booklet given Related to Chronic venous hypertension (idiopathic) without complications of bilateral lower extremity Lifestyle education Related to B itz mass index (BMI) 22.0-22.9, adult Giving Encouragement to exercise Related to Body mass index (BMI) 22.0-22.9, adult Diet education Related to Body mass index (BMI) 22.0-22.9, adult Assessments Type Assessment Date No Information Patient Care Teams Name Effective Dates (start - stop) Status Members No Information
[2024-09-06 07:38] VITALS: BP 118/80; BMI 21.6
--- NOTE | 2024-09-06 07:38 | A.OFFPC_ITS ---
Vital Signs 09/06/24 07:38 Height 5 ft 4 in Weight 126 lb BMI 21.6 BP 118/80 Blood Pressure Location Lt brachial Position Sitting Intake Visit Reasons: PE Intake Note: Patient here for a physical exam [employer] Required: No Accompanied by: Self / Same As Patient Allergies No Known Allergies Allergy (Unknown, Verified 09/06/24 08:11) NOT APPLICABLE Medication List - Last Reconciled 09/06/24 by Gisele Dickerson MD amitriptyline 10 mg PO BEDTIME 90 days cetirizine (All Day Allergy (cetirizine)) 10 mg PO DAILY PRN 90 days pantoprazole 40 mg PO DAILY 30 days sucralfate 10 mL PO QIDACHS sumatriptan succinate 25 mg PO Q2-4H PRN 30 days Tobacco use date assessed: 01/22/24 Dental Screening Dental Screen Date: 03/08/24 HPI HPI Comments History of Present Illness Details The patient is a 54-year-old female presenting for her physical exam. She has tension-type headaches and paresthesia of the hands. The headaches began approximately two weeks ago, characterized by bilateral posterior head pain. The patient reports that the pain is severe enough to interfere with her sleep, frequently waking around 2 AM with difficulty returning to sleep. She associates the onset of these symptoms with feelings of stress and has noted increased salivation. The headaches sometimes worsen with noise, particularly while working in a children's environment. Hand paresthesia occurs nightly, impairing sleep and daily functions, notably while driving. The patient has not undergone prior nerve conduction studies for this issue. Additionally, there is a presence of mild major depression, noted recent sadness, and crying spells. The patient has a history of mildly elevated cholesterol levels, for which laboratory monitoring was advised. Her gastroesophageal symptoms include a prior upper GI series revealing erosive gastritis, and she is currently managing GERD with pantoprazole and sucralfate. The patient has experienced weight gain from 122 lbs to 126 lbs since April. Will have EGD in a month. Past surgical history includes a colonoscopy in 2016, tendon repair, D&C, ovarian cyst removal, and tubal ligation. There is a significant family history of stomach cancer (father) and multiple conditions in her mother, including diabetes and heart disease. - Tetanus vaccination due today (last in 2012) - Pap smear normal with HPV negative on 04/13 - Mammogram normal in July - Upcoming colonoscopy and endoscopy nilson eduled for next September - Flu shot received in June - Laboratory work to monitor cholesterol levels planned [facility] Medical History (Updated 09/06/24 @ 08:31 by Gisele Dickerson MD) Lump in armpit Allergic rhinitis Hypovitaminosis D Urticaria Hand numbness Family history of diabetes mellitus Abscess of axilla, left Overactive bladder Hospital discharge follow-up Incontinence Recurrent UTI Chronic constipation RUQ abdominal pain Constipation Hypovitaminosis D Irregular menses Urinary incontinence GERD (gastroesophageal reflux disease) Migraine headache with aura History of positive PPD Surgical History Hx of colonoscopy S/P tendon repair History of dilation and curettage History of removal of ovarian cyst History of tubal ligation Family History Father Stomach cancer Mother Heart disease Arthritis Elevated cholesterol Diabetes Hypertension Brother No problems noted. Brother No problems noted. Sister No problems noted. Sister No problems noted. Sister No problems noted. Sister No problems noted. Son No problems noted. Son No problems noted. Son No problems noted. 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 Clarke Loomis, Porsche Del Rio, Trent Roberts and colleagues, with an educational whitney from [employer]. Review of Systems Const All systems reviewed & are unremarkable except as noted in HPI and below Reports headache(s) ENT Reports headache(s) Card Denies chest pain at rest, Denies chest pain with activity, Denies edema, Denies irregular heart rhythm, Denies claudication, Denies dyspnea, Denies dyspnea on exertion, Denies orthopnea, Denies paroxysmal nocturnal dyspnea and Denies slow heart rate Resp Denies cough, Denies dyspnea and Denies dyspnea on exertion GI Denies abdominal pain, Denies change in bowel habits, Denies excessive flatus, Denies nausea and Denies vomiting Denies urinary incontinence, Denies urinary hesitancy and Denies urinary urgency Musc Reports myalgias Neuro Reports headache(s) and Reports paresthesias Psych Reports abnormal sleep pattern and Reports depression Physical exam (Primary Care) Vital Signs: Last Vital Signs BP 118/80 09/06/24 07:38 BMI result Body Mass Index 21.6 Tobacco/Smoking Status: Tobacco use Status Tobacco use date assessed 01/22/24 09/06/24 07:42 Patient Tobacco Use Status Never used Tobacco 09/06/24 07:42 e-Cigarette/Vaping Use Never Used 09/06/24 07:42 Thrive Assessment: Date of Thrive Assessment Date Thrive assessed 03/08/24 09/06/24 07:42 HENAK Head: Yes normal to inspection, Yes normocephalic and Yes atraumatic Ears: external ears normal Eyes General: appearance normal, both eyes and all related structures Eyelids: Yes eyelids normal Conjunctivae: conjunctivae normal Neck Neck: Yes normal visual inspection and Yes supple Resp Effort & Inspection: normal respiratory effort Auscultation: clear to auscultation bilaterally Cardio Jugular venous distension: no JVD Rate: regular rate Rhythm: regular rhythm Heart sounds: S1 normal heart sound present and S2 normal heart sound present GI Inspection: Yes normal to inspection Palpation (GI): Soft to palpation and nontender Auscultation: normal bowel sounds Skin General skin exam: no rashes or lesions noted Neuro General: no focal motor deficits Extrem General: Yes full ROM Psych Appearance: grossly normal Office Procedures Flu Questionnaire Does the patient have a severe egg allergy?: No Immunizations Fluarix Triv [id number] (PF) 45 mcg (15 mcg x 3)/0.5 mL IM syringe Performing Provider: Gisele Dickerson MD [facility] [place] [facility] Documented (not given) by: PRETTY Carballo on 09/06/24 07:53 Reason Not Given: Received Previously Boostrix Tdap 2.5 Lf unit-8 mcg-5 Lf/0.5 mL intramuscular syringe Performing Provider: Gisele Dickerson MD Performing Location: [facility] [place] [facility] Administered by: PRETTY Carballo on 09/06/24 08:07 Dose Route Admin Location Dispensed Lot Number Expiration Date [facility] Impregnating Helper 0.5 mL IM Left Deltoid 0.5 mL [id number] 06/19/25 [id number] [employer] VIS Given Date VIS Provided VIS Publication Date 09/06/24 Single Vaccine 21 Eligibility Eligibility Date Funding Source Not [facility] Eligible 09/06/24 Private Coding Level of Care Code Est Pt Level 4 (76438) Est Pt Prev Care 40-64y(09476) Diagnoses Physical exam Z00.00 Mild major depression F32.0 Insomnia G47.00 Tension type headache G44.209 Hand numbness R20.0 Time Spent (min) 38 Assessment & Plan Assessment & Plan (1) Physical exam: Code(s): Z00.00 - Encounter for general adult medical examination without abnormal findings Category: Medical (2) Mild major depression: Code(s): F32.0 - Major depressive disorder, single episode, mild Category: Medical (3) Insomnia: Code(s): G47.00 - Insomnia, unspecified Category: Medical (4) Tension type headache: Code(s): G44.209 - Tension-type headache, unspecified, not intractable Category: Medical (5) Hand numbness: Code(s): R20.0 - Anesthesia of skin Category: Medical Plan - Administer tetanus vaccination today. - Prescribe amitriptyline for tension-type headache and concurrent mild depression with insomnia. - Schedule nerve conduction study to evaluate hand paresthesia. - Recommend completing fasting laboratory tests for cholesterol monitoring. - Plan endoscopy/colonoscopy in September for gastrointestinal evaluation. Patient was informed and verbally consented to the use of an ambient scribe for clinic note documentation during this visit. I discussed with the patient that her symptoms are consistent with tension-type headaches likely triggered by occupational and sleep-related stressors. I out lined the use of amitriptyline to address headaches and depressive symptoms, explaining its dual role in managing neuropathic symptoms. We discussed conducting a nerve conduction study due to the unresolved paresthesia, and its importance in identifying potential peripheral neuropathies. I emphasized the necessity of cholesterol monitoring to manage cardiovascular risks. We reviewed the upcoming gastrointestinal procedures and addressed health maintenance by ensuring she receives the tetanus boost today. Orders: Orders NE nerve conduction velocity Today R20.0 - Anesthesia of skin TDaP Immunization Today Z23 - Encounter for immunization Complete Blood Count Auto Diff Today J30.9 - Allergic rhinitis, unspecified Vitamin D 25-OH Total Today E55.9 - Vitamin D deficiency, unspecified Influenza [id number] Immunization Today Z23 - Encounter for immunization Lipid Panel Today E78.5 - Hyperlipidemia, unspecified, Z00.00 - Encounter for general adult medical examination without abnormal findings Comprehensive [place]. Panel Fast Today Z00.00 - Encounter for general adult medical examination without abnormal findings Medications: New sumatriptan succinate do not exceed 8 doses per 24 hrs 25 mg PO Q2-4H 30 days PRN 9 tabs 2RF migraine headache G43.909 - Migraine, unspecified, not intractable, without status migrainosus amitriptyline 10 mg PO BEDTIME 90 days 90 tabs 0RF F32.0 - Major depressive disorder, single episode, mild, G47.00 - Insomnia, unspecified Patient Instructions: - Receive tetanus vaccine today. - Take amitriptyline as prescribed for headache and depression. - Schedule and complete recommended laboratory tests while fasting. - Follow up with nerve conduction study appointment. - Maintain a written record of headaches, sleep patterns, and hand symptoms. - Plan for endoscopy and colonoscopy next month. - Return for follow-up as needed or if symptoms worsen.
== END 2024-09-06 08:10 | disposition home or self-care (01) ==
PROVIDERS: PCP Internal Medicine; Visit Provider Internal Medicine
DX: Z00.00 Encounter for general adult medical examination without abnormal findings (principal); F32.0 Major depressive disorder, single episode, mild; G47.00 Insomnia, unspecified; G44.209 Tension-type headache, unspecified, not intractable; R20.0 Anesthesia of skin; Z23 Encounter for immunization

== ENCOUNTER → 2024-09-06 07:24 | Outpatient (BNVA) | payer OTHER, SELFPAY | PROVIDERS: PCP Internal Medicine; Visit Provider Internal Medicine | DX: Z00.00 Encounter for general adult medical examination without abnormal findings (principal); Z23 Encounter for immunization; F32.0 Major depressive disorder, single episode, mild; G47.00 Insomnia, unspecified; G44.209 Tension-type headache, unspecified, not intractable; R20.0 Anesthesia of skin | CPT/HCPCS: 90471; 90715 ==

== ENCOUNTER 2024-09-18 07:23 | Outpatient (REF) | payer OTHER, MEDICAID, SELFPAY ==
[2024-09-18 07:49] LABS: MANUAL DIFF FLAG NO
[2024-09-18 08:16] LABS: Basophils Absolute Auto 0.1 X10*3/uL (0.0-0.2); Basophils Percent Auto 0.8 % (0-2); Eosinophils Absolute Auto 0.2 X10*3/uL (0.0-0.4); Eosinophils Percent Auto 3.8 % (0-4); Hematocrit 40.8 % (37.0-47.0); Hemoglobin 13.2 g/dl (12.0-16.0); Imm Gran Abs Auto 0.01 X10*3/uL (0.00-0.03); Imm Gran Pct Auto 0.2 % (0.0-0.4); Lymphocytes Absolute Auto 2.2 X10*3/uL (1.2-4.9); Lymphocytes Percent Auto 34.5 % (20-40); Mean Corpuscular HGB Conc 32.4 g/dl (31.0-35.0); Mean Corpuscular Hemoglobin 27.5 pg (27.0-33.0); Mean Platelet Volume 9.1 fL (9.4-12.3); Monocytes Absolute Auto 0.6 X10*3/uL (0.1-1.2); Monocytes Percent Auto 9.3 % (2-11); Neutrophils Absolute Auto 3.3 x10*3/uL (2.0-8.3); Neutrophils Percent Auto 51.4 % (45-73); Platelet Count 321 X10*3/uL (160-400); Red Cell Distribution Width 13.2 % (11.0-16.0); White Blood Count 6.4 X10*3/uL (4.8-10.8)
[2024-09-18 09:00] LABS: Alanine Aminotransferase 80 U/L (0-31); Alkaline Phosphatase 127 U/L (39-117); Anion Gap 10 (12-20); Aspartate Amino Transferase 29 U/L (5-31); Bilirubin Total 0.4 mg/dL (0.0-1.0); Blood Urea Nitrogen 14 mg/dL (9-16); Calcium 9.3 mg/dL (8.4-10.2); Carbon Dioxide 28 mmol/L (22-29); Chloride 109 mmol/L (96-108); Cholesterol 206 mg/dL (<200); Estimated Glomerular Filt Rate > 60; Glucose Fasting 84 mg/dL (60-99); HDL Cholesterol 59 mg/dL (>40); LDL Cholesterol Calculated 130 mg/dL (<100); Potassium 3.8 mmol/L (3.3-5.1); Sodium 143 mmol/L (135-145); Total Protein 7.6 g/dL (6.5-8.0); Triglycerides 85 mg/dL (<150)
[2024-09-18 09:16] LABS: Vitamin D 25-OH Total 24.2 ng/mL (>30)
[2024-09-18 09:30] LABS: Folate 13.5 ng/mL (> or = 4.0); Vitamin B12 1061 pg/mL (200-900)
== END 2024-09-18 07:24 | disposition home or self-care (01) ==
LOC: HO.LAB 07:23
PROVIDERS: PCP Internal Medicine; Visit Provider Internal Medicine
DX: R63.4 Abnormal weight loss (principal); E53.8 Deficiency of other specified B group vitamins; E78.5 Hyperlipidemia, unspecified; Z00.00 Encounter for general adult medical examination without abnormal findings; J30.9 Allergic rhinitis, unspecified; E55.9 Vitamin D deficiency, unspecified
CPT/HCPCS: 36415; 80053; 80061; 82306; 82607; 82746; 84443; 85025

== ENCOUNTER 2024-09-28 06:05 | Outpatient (REF) | payer OTHER, MEDICAID, SELFPAY ==
--- NOTE | 2024-09-28 | EMG_ITS ---
Bilateral median and ulnar motor and sensory studies were performed. Bilateral radial sensory study was performed and paraspinal muscles were tested with a needle. 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 MD LUISITO Silva/JEOVANY / [phone]
== END 2024-09-28 06:06 | disposition home or self-care (01) ==
LOC: HO.NEURO 06:05
PROVIDERS: PCP Internal Medicine; Visit Provider Internal Medicine
DX: R20.0 Anesthesia of skin (principal)
CPT/HCPCS: 95886; 95911

== ENCOUNTER 2024-10-15 08:05 | Day surgery (SDC) | payer OTHER, SELFPAY ==
--- NOTE | 2024-04-21 13:20 | HO.ANESPROP2 ---
HPI - Anesthesia Eval Consult details Narrative: 53yo F for Upper Endoscopy and Colonoscopy Optimized per PCP (atypical CP pending pharm stress test, pt did not acheive min HR in exercise test) PMFSH Active Problems Active Problems: All Active Problems Pure hypercholesterolemia (Acute) Chest pain (Acute) Chronic GERD (Acute) Seasonal allergic rhinitis due to pollen (Acute) Epigastric pain (Acute) Encounter for well woman exam with routine gynecological exam (Acute) Migraine (Acute) Allergic conjunctivitis (Acute) Eye swelling, left (Acute) Elevated total protein (Acute) Post covid-19 condition, unspecified (Acute) Transaminitis (Acute) Unintentional weight loss (Acute) Chronic cough (Acute) Lump in armpit (Acute) Physical exam (Acute) Gas bloat syndrome (Acute) Allergic rhinitis (Acute) Hypovitaminosis D (Acute) Cough (Acute) Sinusitis (Acute) Abdominal pain (Acute) Urticaria (Acute) Lip lesion (Acute) Pruritic rash (Acute) Hand numbness (Acute) Family history of diabetes mellitus (Acute) Hemorrhoids (Acute) Abscess of axilla, left (Acute) Overactive bladder (Acute) Hospital discharge follow-up (Acute) H. pylori infection (Acute) Incontinence (Acute) Recurrent UTI (Acute) Complicated urinary tract infection (Acute) Varicose veins of right lower extremity with inflammation (Acute) Elevated liver enzymes (Acute) Chronic constipation (Acute) RUQ abdominal pain (Acute) Past Medical History Medical History Lump in armpit Allergic rhinitis Hypovitaminosis D Urticaria Hand numbness Family history of diabetes mellitus Abscess of axilla, left Overactive bladder Hospital discharge follow-up Incontinence Recurrent UTI Chronic constipation RUQ abdominal pain Constipation Hypovitaminosis D Irregular menses Urinary incontinence GERD (gastroesophageal reflux disease) Migraine headache with aura History of positive PPD Family History Family History Father Stomach cancer Mother Heart disease Arthritis Elevated cholesterol Diabetes Hypertension Brother No problems noted. Brother No problems noted. Sister No problems noted. Sister No problems noted. Sister No problems noted. Sister No problems noted. Son No problems noted. Son No problems noted. Son No problems noted. 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 Rate : 070 BPM Atrial Rate : 070 BPM P-R Int : 148 ms QRS Dur : 082 ms QT Int : 380 ms P-R-T Axes : 054 029 040 degrees QTc Int : 410 ms Normal sinus rhythm Normal ECG When compared with ECG of 19-MAR-2018 10:26, No significant change was found Exercise Stress 03/2024 Protocol: DANY Max HR: 115 BPM 69% of Pred: 165 BPM Max BP: 158/062 mmHG Max Work Load: 5.9 METS Exericse stress test exercise 4 mi n8 sec of Dany protocol achieving 69% MPHR, with moderate SOB, 4/10 left lower chest stabbing at baseline. 0/10 during exercise, without arrhythmias, with normotsive response to exercise, with nondiagnoisitic EKGs. Test reviewed with Dr. Noriega Assessment and Plan Assessment Anesthesia Assessment: Chart Reviewed
--- NOTE | 2024-10-14 10:57 | HO.ANESPROP2 ---
Documented by User: Christiane Snyder NP 10/14/24 10:58 HPI - Anesthesia Eval Consult details Narrative: 54yo F for Upper Endoscopy and Colonoscopy PMF Active Problems Active Problems: All Active Problems Carpal tunnel syndrome (Acute) Tension type headache (Acute) Insomnia (Acute) Mild major depression (Acute) Pure hypercholesterolemia (Acute) Chest pain (Acute) Chronic GERD (Acute) Seasonal allergic rhinitis due to pollen (Acute) Epigastric pain (Acute) Encounter for well woman exam with routine gynecological exam (Acute) Migraine (Acute) Allergic conjunctivitis (Acute) Eye swelling, left (Acute) Elevated total protein (Acute) Post covid-19 condition, unspecified (Acute) Transaminitis (Acute) Unintentional weight loss (Acute) Chronic cough (Acute) Lump in armpit (Acute) Physical exam (Acute) Gas bloat syndrome (Acute) Allergic rhinitis (Acute) Hypovitaminosis D (Acute) Cough (Acute) Sinusitis (Acute) Abdominal pain (Acute) Urticaria (Acute) Lip lesion (Acute) Pruritic rash (Acute) Hand numbness (Acute) Family history of diabetes mellitus (Acute) Hemorrhoids (Acute) Abscess of axilla, left (Acute) Overactive bladder (Acute) Hospital discharge follow-up (Acute) H. pylori infection (Acute) Incontinence (Acute) Recurrent UTI (Acute) Complicated urinary tract infection (Acute) Varicose veins of right lower extremity with inflammation (Acute) Elevated liver enzymes (Acute) Chronic constipation (Acute) RUQ abdominal pain (Acute) Past Medical History Medical History Lump in armpit Allergic rhinitis Hypovitaminosis D Urticaria Hand numbness Family history of diabetes mellitus Abscess of axilla, left Overactive bladder Hospital discharge follow-up Incontinence Recurrent UTI Chronic constipation RUQ abdominal pain Constipation Hypovitaminosis D Irregular menses Urinary incontinence GERD (gastroesophageal reflux disease) Migraine headache with aura History of positive PPD Family History Family History Father Stomach cancer Mother Heart disease Arthritis Elevated cholesterol Diabetes Hypertension Brother No problems noted. Brother No problems noted. Sister No problems noted. Sister No problems noted. Sister No problems noted. Sister No problems noted. Son No problems noted. Son No problems noted. Son No problems noted. Surgical History Surgical History Hx of colonoscopy S/P tendon repair History of dilation and curettage History of removal of ovarian cyst History of tubal ligation Social History Social History Household Members: Spouse and Children Housing: Apartment Are you a primary rental boats caretaker to a significant other at home: No Do you presently have visiting nurse or other home services: No Alcohol intake: never Patient Tobacco Use Status: Never used Tobacco e-Cigarette/Vaping Use: Never Used Second Hand Smoke Exposure: No Have you been hit, kicked, punched, or otherwise hurt by someone within the past year? 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 occupational exposures/hazards: No Cognitive needs: No Hearing needs: No Vision needs: No Meds Allergies Allergy/AdvReac Type Severity Reaction Status Date / Time No Known Allergies Allergy Unknown NOT Verified 10/15/24 09:05 APPLICABLE Assessment and Plan Assessment Anesthesia Assessment: Chart Reviewed Documented by User: Tawnya Gallardo MD 10/15/24 09:30 [facility] Past Medical History Medical History Lump in armpit Allergic rhinitis Hypovitaminosis D Urticaria Hand numbness Family history of diabetes mellitus Abscess of axilla, left Overactive bladder Hospital discharge follow-up Incontinence Recurrent UTI Chronic constipation RUQ abdominal pain Constipation Hypovitaminosis D Irregular menses Urinary incontinence GERD (gastroesophageal reflux disease) Migraine headache with aura History of positive PPD Family History Family History Father Stomach cancer Mother Heart disease Arthritis Elevated cholesterol Diabetes Hypertension Brother No problems noted. Brother No problems noted. Sister No problems noted. Sister No problems noted. Sister No problems noted. Sister No problems noted. Son No problems noted. Son No problems noted. Son No problems noted. Family history of problems with anesthesia: No Surgical History Surgical History Hx of colonoscopy S/P tendon repair History of dilation and curettage History of removal of ovarian cyst History of tubal ligation History of Problems with Anesthesia: No Social History Social History Household Members: Spouse and Children Housing: Apartment Are you a primary rental boats caretaker to a significant other at home: No Do you presently have visiting nurse or other home services: No Alcohol intake: never Patient Tobacco Use Status: Never used Tobacco e-Cigarette/Vaping Use: Never Used Second Hand Smoke Exposure: No Have you been hit, kicked, punched, or otherwise hurt by someone within the past year? 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 occupational exposures/hazards: No Cognitive needs: No Hearing needs: No Vision needs: No Meds Allergies Allergy/AdvReac Type Severity Reaction Status Date / Time No Known Allergies Allergy Unknown NOT Verified 10/15/24 09:05 APPLICABLE Exam Airway Mallampati Class: II TM Dist: >3cm Neck ROM: Full Heart: rrr Lungs: cta Assessment and Plan Assessment Anesthesia Assessment: Anesthesia Plan Discussed Final Anesthetic Review Family History of Problems with Anesthesia: No History of Problems with Anesthesia: No NPO: Yes ASA Class: II Final Preanesthetic Review: No Changes in Pt Med Stat, Meds/Allgs Chart Reviewed and Consent Obtained/Reviewed Patient Risk: Low Procedure Risk: Intermediate Anesthetic Plan Anesthetic Plan: MAC: Disposition: Standard PACU
--- NOTE | 2024-10-15 08:54 | MHC.SHP ---
Pre-Procedural Eval Section A - 24 Hr Update-Section A only Date of Service: 10/15/24 The patient is an INPATIENT: No Section B - Complete if H&P > 30 days Chief Complaint: Abdominal pain and bloating Relevant Family History (Specify if Yes): Yes Relevant Social History: None Present Medications: see Short Stay Collaborative assessment Medical History: Significant History (Abscess of axilla, left Overactive bladder Hospital discharge follow-up Incontinence Recurrent UTI Chronic constipation RUQ abdominal pain Constipation Hypovitaminosis D Irregular menses Urinary incontinence GERD (gastroesophageal reflux disease) Migraine headache with aura History of positive PPD) History of Previous Operations: Relevant previous surgery/procedure and date(s) (Hx of colonoscopy S/P tendon repair History of dilation and curettage History of removal of ovarian cyst History of tubal ligation) Allergies: Allergies Allergy/AdvReac Type Severity Reaction Status Date / Time No Known Allergies Allergy Unknown NOT Verified 09/06/24 08:11 APPLICABLE Review of Systems Sugical H&P ROS: Negative: Constitution, Cardiovascular, Respiratory and Gastrointestinal Exam Surgical H&P Exam: Normal: Heart, Normal: Lungs, Normal: Extremities and Normal: Abdomen Plan Diagnosis/Plan: Unchanged I have reviewed the history and physical and performed a pertinent physical examination on my patient. No changes have occurred unless specified. Time Spent With Patient Time: Total time managing care of this patient today ____ minutes.
[2024-10-15 09:01] VITALS: BMI 21.8
[2024-10-15 09:18] VITALS: BP 145/69; PULSE 68; RESP 18; TEMP 36.6; O2SAT 100
[2024-10-15] MEDS: Lactated Ringers 1,000 ML 100 ML IVCONT (09:22)
--- NOTE | 2024-10-15 10:35 | P.OPN-COLO_ITS ---
Colonoscopy Operative Note Operative Note Date of Service: 10/15/24 Narrative: FLEXIBLE TRANSORAL UPPER GASTROINTESTINAL ENDOSCOPY WITH BIOPSIES AND COLONOSCOPY TILL CECUM WITH BIOPSIES Pre-op diagnosis: Colon cancer screening, GERD, Abdominal pain Post-op diagnosis: Esophagitis, Gastritis, Colon Polyps, Diverticulosis, hemorrhoids Endoscopist:? Jaylon Guevara MD Anesthesia:?MAC UPPER ENDOSCOPY Consent: Indications for the procedure and potential complications of bleeding, perforation, reaction to medications and missed diagnosis were discussed with the patient and informed consent was obtained. Instrument: Olympus GIF H 190 mid size upper endoscope Monitoring: Vital signs and clinical assessment, continuous EKG monitoring, Pulse oximetry, Carbon Dioxide monitoring and blood pressure monitoring were done throughout the procedure. Procedure: The patient was placed in the left lateral decubitis position and pre-procedure medications were administered and a bite block was placed. The endoscope was inserted into the mouth and advanced under direct vision to the third part of duodenum. A careful inspection was made as the upper endoscope was withdrawn including a retroflexed examination of the proximal stomach; Findings and interventions are described below. Findings: Larynx: Normal Esophagus: GE junction at 32 cms. Mildly tortuous esophagus without stricture or ring. A single 0.5 cms healing erosion ar GE junction. No Almazan's. Stomach: Moderate diffuse gastric erythema - biopsies were obtained from the antrum. A few superficial chronic appearing erosions in the antrum. Grade 2 flap valve on retroflexed examination of the cardia. Duodenum: Normal bulb and descending duodenum Biopsies were obtained from descending duodenum to check for celiac sprue Intervention: Biopsies as noted above COLONOSCOPY PROCEDURE NOTE Instrument: Olympus PCF H 190 L variable stiffness pediatric colonoscope Monitoring: Vital signs and clinical assessment, intermittent blood pressure monitoring, continuous EKG monitoring, Pulse oximetry and Carbon Dioxide monitoring were done throughout the procedure. Please see anesthesia flowsheet. Colon withdrawl time was 21 minutes. Procedure: The patient was placed in the left lateral decubitis position and pre-procedure medications were administered. After a digital rectal examination of the ano-rectum, the video colonoscope was inserted into the rectum and advanced through the colon to the cecum. The colonoscope was slowly withdrawn in a retrograde panoramic fashion and the colon mucosa was carefully examined including a retroflexed view of the rectum. Findings and interventions are described below. Procedure Difficulty: Colon was long and tortuous and there was some loop formation Findings: Terminal Ileum: Not evaluated Cecum: Normal Ascending Colon: Normal Transverse Colon: A 3-4 mm sessile polyp - removed with a cold biopsy. A 10-12 mm sessile polyp - removed with a hot snare Descending Colon: Moderate diverticulosis Sigmoid Colon: Moderate diverticulosis Rectum: Normal Ano-rectum: Moderate internal hemorrhoids Colon preparation: Good after some irrigation. [place] Bowel Preparation Scale Right colon; 2 Transverse colon: 2 Left colon; 2 (0 = Unprepared colon segment with mucosa not seen due to solid stool that cannot be cleared. 1 = Portion of mucosa of the colon segment seen, but other areas of the colon segment not well seen due to staining, residual stool and/or opaque liquid. 2 = Minor amount of residual staining, small fragments of stool and/or opaque liquid, but mucosa of colon segment seen well. 3 = Entire mucosa of colon segment seen well with no residual staining, small fragments of stool or opaque liquid) Impression and Post Procedure Diagnosis: Endoscopy Findings: ESOPHAGUS: A single 0.5 cms healing erosion ar GE junction. No Almazan's. STOMACH: Diffuse gastritis and superficial chronic appearing erosions DUODENUM: Normal - biopsied to check for celiac sprue Colonoscopy Findings: Two small to medium sized polyps were removed Moderate diverticulosis seen in the left colon Moderate hemorrhoids on retroflexed exam. Plan: Pt has a FU appointment on 10/28/24 with PREET Cornejo, Repeat Colonoscopy in 3-5 years if polyps are adenomatous and 10 year if polyps are hyperplastic. Above findings were reviewed with the patient and relevant handouts were given and the discharge area. BIOPSIES SHOWED: A. Small bowel, biopsy: Small bowel/duodenal mucosa with preserved villi and no specific change; no evidence of celiac disease. B. Gastric antrum, biopsy: Gastric antral mucosa with minimal chronic inactive gastritis; negative for intestinal metaplasia and dysplasia. C. Gastric body, biopsy: Gastric body mucosa with focal minimal chronic inactive inflammation; negative for intestinal metaplasia and dysplasia. D. Colon, transverse, polyps: Tubular adenomas (2 pieces); negative for high- grade dysplasia and carcinoma. Comment: (B and C): Immunostains for H. pylori pending
[2024-10-15 11:11] VITALS: BP 98/52; PULSE 66; RESP 14; TEMP 36.6; O2SAT 100
[2024-10-15 11:25] VITALS: BP 116/61; PULSE 66; RESP 14; O2SAT 100
[2024-10-15 12:00] VITALS: BP 123/60; PULSE 65; RESP 18; TEMP 36.6; O2SAT 100
== END 2024-10-15 12:15 | disposition home or self-care (01) ==
PROVIDERS: PCP Internal Medicine; Visit Provider Internal Medicine Gastroenterology
PROC: (CPT 45385; principal; 2024-10-15 10:10)
DX: Z12.11 Encounter for screening for malignant neoplasm of colon (principal); D12.3 Benign neoplasm of transverse colon; K57.30 Diverticulosis of large intestine without perforation or abscess without bleeding; K64.8 Other hemorrhoids; R10.9 Unspecified abdominal pain; A04.8 Other specified bacterial intestinal infections; K21.9 Gastro-esophageal reflux disease without esophagitis; K29.50 Unspecified chronic gastritis without bleeding; K22.10 Ulcer of esophagus without bleeding; K22.89 Other specified disease of esophagus
CPT/HCPCS: 45385; 45380; 43239; 88305; 88342; J2003; J2704

== ENCOUNTER 2024-11-02 13:27 | Outpatient (AMB) | payer OTHER, SELFPAY ==
--- NOTE | 2024-11-02 13:30 | A.OFFVIS_ITS ---
Vital Signs 11/02/24 13:32 Height 5 ft 3 in Weight 130 lb BMI 23.0 BP 135/61 Blood Pressure Location Lt brachial Position Sitting Pulse 58 Intake Visit Reasons: s/p double results Intake Note: Patient follow up for EGD/Colonoscopy result. Patient cc: abdominal discomfort, acid reflex with a lot of gasses, after Colonoscopy she is been with constipation. New Car Driver Required: Yes New Car Driver Name: Heraclio Farias LM Accompanied by: Self / Same As Patient Allergies No Known Allergies Allergy (Unknown, Verified 05/26/25 07:21) NOT APPLICABLE Medication List - Last Reconciled 11/02/24 by Jaylon Guevara MD cetirizine (All Day Allergy (cetirizine)) 10 mg PO DAILY PRN 90 days pantoprazole 40 mg PO DAILY 30 days sumatriptan succinate 25 mg PO Q2-4H PRN 30 days HPI HPI s/p double results: Details: GI clinic visit for this 54 YF for follow-up after EGD and colonoscopy Patient previously followed by PREET Cornejo TODAY'S VISIT: Patient cc: abdominal discomfort, acid reflex with a lot of gasses, after Colonoscopy she is been with constipation. Complains of constipation, gas and bloating since she had her colonoscopy. Complains of a long hx of constipation - worse since her colon Has a BM once a day in the am with passage of hard stools. Takes 2 fibre gummies daily which has helped. Patient complains of mild heartburn and denies dysphagia, nausea, vomiting, change in appetite or weight. Denies recent diarrhea, black stools or rectal bleeding. Patient denies smoking or ETOH abuse, major cardiac or pulmonary problems, loud snoring or sleep apnea Denies problems with anesthesia in the past. Denies being on chronic anticoagulation. Patient denies known family history of colon polyps, colon cancer. Dad with stomach cancer at age 68 yrs LABS IN [facility] : Reviewed IMAGING STUDIES: 05/2024 UGI SHOWED: 1. Small type I hiatal hernia. 2. Significant gastroesophageal reflux. 3. Thickened appearance of the areae gastricae. In addition there are multiple foci of contrast pooling in the fundus the stomach. These findings are suggestive of erosive gastritis. Recommend correlation of EGD. ENDOSCOPIC STUDIES: 10/15/24 EGD AND COLON SHOWED: Endoscopy Findings: ESOPHAGUS: A single 0.5 cms healing erosion ar GE junction. No Almazan's. STOMACH: Diffuse gastritis and superficial chronic appearing erosions DUODENUM: Normal - biopsied to check for celiac sprue Colonoscopy Findings: Two small to medium sized polyps were removed Moderate diverticulosis seen in the left colon Moderate hemorrhoids on retroflexed exam. Plan: Repeat Colonoscopy in 3-5 years if polyps are adenomatous and 10 year if polyps are hyperplastic. Above findings were reviewed with the patient and relevant handouts were given and the discharge area. BIOPSIES SHOWED: A. Small bowel, biopsy: Small bowel/duodenal mucosa with preserved villi and no specific change; no evidence of celiac disease. B. Gastric antrum, biopsy: Gastric antral mucosa with minimal chronic inactive gastritis; negative for intestinal metaplasia and dysplasia. C. Gastric body, biopsy: Gastric body mucosa with focal minimal chronic inactive inflammation; negative for intestinal metaplasia and dysplasia. D. Colon, transverse, polyps: Tubular adenomas (2 pieces); negative for high- grade dysplasia and carcinoma. Comment: (B and C): Immunostains for H. pylori were negative Letter sent with biopsy results Patient placed on the colonoscopy recall list for repeat colonoscopy in 3 years. PAST GI HISTORY BY REVIEW OF MEDICAL RECORDS: 11/2023 PT WAS SEEN BY JOAQUÍN Hernandez PA: 53 y/o female last seen 05/2022- RLQ everyday when she wakes up-she has not know if it is due to her bowels. BM QD-typically normal Review of record shows Last colonoscopy 2016 Dr. Miller no polyps everything she eats makes her burp-reviewed diet- Review record shows history of H pylori treated negative test of cure She has no nausea, vomiting hematemesis, hematochezia fever chills [facility] Medical History (Updated 05/26/25 @ 07:27 by Jaylon Guevara MD) Lump in armpit Allergic rhinitis Hypovitaminosis D Urticaria Hand numbness Family history of diabetes mellitus Abscess of axilla, left Overactive bladder Hospital discharge follow-up Incontinence Recurrent UTI Chronic constipation RUQ abdominal pain Constipation Hypovitaminosis D Irregular menses Urinary incontinence GERD (gastroesophageal reflux disease) Migraine headache with aura History of positive PPD Surgical History (Updated 05/26/25 @ 07:26 by Rafaela Ozuna) Hx of removal of cyst History of esophagogastroduodenoscopy (EGD) Hx of colonoscopy S/P tendon repair History of dilation and curettage History of removal of ovarian cyst History of tubal ligation Family History Father Stomach cancer Mother Heart disease Arthritis Elevated cholesterol Diabetes Hypertension Brother No problems noted. Brother No problems noted. Sister No problems noted. Sister No problems noted. Sister No problems noted. Sister No problems noted. Son No problems noted. Son No problems noted. Son No problems noted. 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 Current occupational exposures/hazards: No Cognitive needs: No Hearing needs: No Vision needs: Yes Female Reproductive History Menstrual Age of Menarche: 12 Physical Exam Vital Signs: Last Vital Signs Pulse 58 11/02/24 13:32 BP 135/61 11/02/24 13:32 BMI result Body Mass Index 23.0 Const General: healthy appearing and no acute distress Nutritional Appearance: average body habitus Orientation/consciousness: patient oriented x3 Limitations: language barrier HEENT Head: Yes normal to inspection Ears: hearing grossly normal bilaterally Eyes Sclerae: sclerae normal Pupils: Equal, round and reactive pupils present Neck Neck: Yes normal visual inspection Chest Chest palpation & inspection: normal inspection of the chest Resp Effort & Inspection: normal respiratory effort Auscultation: clear to auscultation bilaterally Cardio Palpation: normal PMI Rate: regular rate Rhythm: regular rhythm Heart sounds: S1 normal heart sound present, S2 normal heart sound present and no murmurs GI Palpation (GI): Soft to palpation, nontender and No hepatosplenomegaly present Auscultation: normal bowel sounds Rectal Exam - Female: deferred Skin General skin exam: no rashes or lesions noted Neuro General: patient oriented x3, gait normal and moves all extremities Cranial nerves: Yes Equal, round and reactive pupils present Psych Appearance: grossly normal Mental Status: mental status grossly normal Assessment & Plan Assessment & Plan (1) Elevated LFTs: Code(s): R79.89 - Other specified abnormal findings of blood chemistry Category: Medical (2) Chronic constipation: Comment: 51year-old female chronic constipation when following bowel regimen, stool softener high-fiber diet,- Gas, will use Gas-X good response in the past. continue High-fiber/FODMAP- Reviewed a previous colonoscopy 2017 discussed repeat-she will consider symptoms recur Code(s): K59.09 - Other constipation Category: Medical (3) Abdominal pain: Comment: Chronic- Intermittent -GI versus bottom sander Maybe function-sees bottom sander EGD colonoscopy, discussed procedures, rare risks need for escorted due to anesthesia Code(s): R10.9 - Unspecified abdominal pain Category: Medical Plan 54 year old Italian-speaking female with migraine headaches and hypercholesterolemia seen for follow-up of elevated LFTs, GERD and chronic constipation Pt complains of postprandial epigastric pain and abdominal bloating. Pt advised to check labs and schedule an Abd US Senna 1 tab at bedtime for constipation. Follow-up in 4 month Orders: Orders Prothrombin Time INR 11/02/24 - Other specified abnormal findings of blood chemistry Hepatitis B Surface Antigen 11/02/24 - Other specified abnormal findings of blood chemistry Hepatitis B Surface Antibody 11/02/24 - Other specified abnormal findings of blood chemistry Hepatitis A IgG 11/02/24 - Other specified abnormal findings of blood chemistry IRON PROFILE 11/02/24 - Other specified abnormal findings of blood chemistry Liver Kidney Microsomal Ab 11/02/24 - Other specified abnormal findings of blood chemistry US abdomen complete 11/02/24 - Other specified abnormal findings of blood chemistry Liver Panel 11/02/24 - Other specified abnormal findings of blood chemistry Alpha 1 Anti-trypsin 11/02/24 - Other specified abnormal findings of blood chemistry Ferritin 11/02/24 - Other specified abnormal findings of blood chemistry Transglutaminase IgA 11/02/24 - Other specified abnormal findings of blood chemistry Immunoglobulin A 11/02/24 - Other specified abnormal findings of blood chemistry Medications: New sennosides-docusate sodium 8.6-50 mg (Senna with Docusate Sodium) Please take daily at bedtime 1 tab-cap PO BEDTIME 60 tabs 2RF 60 days Refilled pantoprazole 40 mg PO DAILY 30 tabs 3RF 30 days Coding Level of Care Code Est Pt Level 4 (06779) Diagnoses Elevated LFTs R79.89 Chronic constipation K59.09 Abdominal pain R10.9 Time Spent (min) 24
[2024-11-02 13:32] VITALS: BP 135/61; PULSE 58; BMI 23.0
--- OUTSIDE RECORDS SUMMARY | 2024-11-02 14:35 | XMS_ITS | Clinical Summary ---
Author Organization [employer] Address [address] [facility] [address] [place] [address] Care Team Providers Care Dba Name Role Phone Unavailable Primary Care Provider Unavailabl e Social History Tobacco Use Types Packs/Day Years Used Date Smoking Tobacco: Never Assessed Comments Unknown Sex and Gender Information Value Date Recorded Sex Assigned at Female 07/22/2022 10:18 AM EDT Legal Sex Female 10:18 AM EDT Gender Identity Transgender Male 07/22/2022 10:1 8 AM EDT Sexual Orientation Straight 07/22/2022 10 :18 AM EDT Plan of Treatment Health Maintenance Due Date Last Done Comments CT Colonography 1968 Colonoscopy 1968 Colorectal Cancer Screening 1968 Depression Screening 1968 FIT DNA/Cologuard 1968 FIT 1968 FOBT 1968 HIV Screening 1968 Lipid Panel 1968 Sigmoidoscopy 1968 Alcohol/Substance Use Screening 1980 Tobacco Screening 1980 Hepatitis C Screening 1986 Pap Smear 1989 Cervical Cancer Screening 1998 HPV/Cotest 1998 Mammogram 2008 Pneumococcal Vaccine: 50+ Years (1 of 1 - PCV) 2018 Zoster Vaccines (1 of 2) 2018 DTaP/Tdap/Td Vaccines (2 - Td or Tdap) 03/08/2023 03/08/2013 COVID-19 Vaccine (1 - season) 2024 Influenza Vaccine (#1) 2024 5, 08/22/2014, 07/13/2013, Additional history exists RSV Patients and Patients Aged 60 years or older (1 - 1-dose 75+ series) 2043 Hepatitis B Vaccines Completed 08/07/2012, 02/04/2012, 07/03/2011 HIB Vaccines Aged Out No longer eligi ble based on patient's age to complete this topic HPV Vaccines Aged Out No longer eligi ble based on patient's age to complete this topic Hepatitis A Vaccines Aged Out No long er eligible based on patient's age to complete this topic IPV Vaccines Aged Out No longer eligi ble based on patient's age to complete this topic Meningococcal Vaccine Aged Out No yusra brenda eligible based on patient's age to complete this topic Pneumococcal Vaccine: Pediatrics (0 to 5 Years) and At-Risk Patients (6 to 49) Years) Aged Out No longer eligible based on patient's age to complete this topic RSV under 20 months Aged Out No longe r eligible based on patient's age to complete this topic Rotavirus Vaccines Aged Out No longer eligible based on patient's age to complete this topic
--- OUTSIDE RECORDS SUMMARY | 2024-11-02 14:35 | XMS_ITS | Encounter Summary ---
Author Organization [employer] Address [address] [facility] [address] [place] [address] Care Team Providers Care Geomatics Professor Name Role Phone Unavailable Primary Care Provider Unavailabl e Encounter Details Date Type Department Care Team (Latest Contact Info) Description 09/12/2021 Abstract [facility] CONVERSIONS Dental, Provider, DDS Social History Tobacco Use Types Packs/Day Years Used Date Smoking Tobacco: Never Assessed Comments Unknown Sex and Gender Information Value Date Recorded Sex Assigned at Female 07/22/2022 10:18 AM EDT Legal Sex Female 10:18 AM EDT Gender Identity Transgender Male 07/22/2022 10:1 8 AM EDT Sexual Orientation Straight 07/22/2022 10 :18 AM EDT documented as of this encounter Plan of Treatment Not on file documented as of this encounter Visit Diagnoses Not on filedocumented in this encounter
== END 2024-11-02 14:10 | disposition home or self-care (01) ==
PROVIDERS: PCP Internal Medicine; Visit Provider Internal Medicine Gastroenterology
DX: R79.89 Other specified abnormal findings of blood chemistry (principal); K59.09 Other constipation; R10.9 Unspecified abdominal pain
CPT/HCPCS: 99499

== ENCOUNTER 2024-11-26 | Outpatient (REF) | payer OTHER, SELFPAY ==
--- OUTSIDE RECORDS SUMMARY | 2025-03-16 18:35 | XMS_ITS | Clinical Summary ---
Author Organization [employer] Address [address] [facility] [address] [place] [address] Care Team Providers Care Applied Exercise Physiologist Name Role Phone Unavailable Primary Care Provider [...]
== END 2024-11-26 00:01 | disposition home or self-care (01) ==
LOC: CF
PROVIDERS: PCP Internal Medicine
DX: L02.412 Cutaneous abscess of left axilla (principal); M79.89 Other specified soft tissue disorders
CPT/HCPCS: 96127

== ENCOUNTER 2024-11-26 15:37 | Outpatient (AMB) | payer OTHER, SELFPAY ==
[2024-11-26 15:44] VITALS: BP 118/78; PULSE 67; RESP 18; TEMP 37.1; O2SAT 97; BMI 22.8
--- NOTE | 2024-11-26 15:44 | MHC.PC.OV ---
Vital Signs 11/26/24 15:44 Height 5 ft 3 in Weight 128 lb 12.8 oz BMI 22.8 BP 118/78 Blood Pressure Location Lt brachial Position Sitting Respiration 18 Pulse 67 Pulse Source Pulse Oximeter Temp 98.7 F Temp Source Oral Pulse Oximetry (%) 97 Oxygen Delivery Method Room Air Intake Visit Reasons: Lump under LT arm pit Registered Nursing Professor Required: Yes Registered Nursing Professor Language: Inspector Line Name: Used Tablet-Tenzin [id number] Vending Supervisor: Present Accompanied by: Self / Same As Patient Allergies No Known Allergies Allergy (Unknown, Verified 11/26/24 16:02) NOT APPLICABLE Medication List - Last Reconciled 11/26/24 by CARMEN Wilson cetirizine (All Day Allergy (cetirizine)) 10 mg PO DAILY PRN 90 days pantoprazole 40 mg PO DAILY 30 days sennosides-docusate sodium 8.6-50 mg (Senna with Docusate Sodium) 1 tab-cap PO BEDTIME 60 days sumatriptan succinate 25 mg PO Q2-4H PRN 30 days Tobacco use date assessed: 11/26/24 Dental Screening Dental Screen Date: 11/26/24 Did you have a dental visit in the last 12 months?: Yes Did you have a dental problem in the last 6 months where you did not have access to dental care?: No Was dental information given to patient?: Patient has dentist HPI Lump under LT arm pit HPI Details The patient this is a 54-year-old female presenting with complaint of axilla lump. The patient is Sami-speaking, tinter photograph services used, along with a family health nurse practitioner during assessment left armpit lump has been present for many year But this Friday, the patient noticed that it got swollen and had a white tip Reports that she used tape to apply pressure to the area Reports that the size decrease after the tape was removed Patient reports that she was concerned because it started hurting and it never hurt before Patient reports feeling a small ball-like area that feels like it has something growing inside On exam: A small red area to the center, larger lump felt inside axilla The obtain an ultrasound to further evaluate and treat the patient prophylactically in case it is an infection process [facility] Medical History (Updated 11/26/24 @ 16:27 by Fitz Navas, PHOTOGRAPHIC EDITOR-C) Lump in armpit Allergic rhinitis Hypovitaminosis D Urticaria Hand numbness Family history of diabetes mellitus Abscess of axilla, left Overactive bladder Hospital discharge follow-up Incontinence Recurrent UTI Chronic constipation RUQ abdominal pain Constipation Hypovitaminosis D Irregular menses Urinary incontinence GERD (gastroesophageal reflux disease) Migraine headache with aura History of positive PPD Surgical History History of esophagogastroduodenoscopy (EGD) Hx of colonoscopy S/P tendon repair History of dilation and curettage History of removal of ovarian cyst History of tubal ligation Family History Father Stomach cancer Mother Heart disease Arthritis Elevated cholesterol Diabetes Hypertension Brother No problems noted. Brother No problems noted. Sister No problems noted. Sister No problems noted. Sister No problems noted. Sister No problems noted. Son No problems noted. Son No problems noted. Son No problems noted. 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 1. Little interest or pleasure in doing things: not at all 2. Feeling down, depressed, or hopeless: not at all 3. Trouble falling or staying asleep, or sleeping too much: not at all 4. Feeling tired or having little energy: not at all 5. Poor appetite or overeating: not at all 6. Feeling bad about yourself - or that you are a failure or have let yourself or your family down: not at all 7. Trouble concentrating on things, such as reading the newspaper or watching television: not at all 8. Moving or speaking so slowly that other people could have noticed. Or the opposite - being so fidgety or restless that you have been moving around a lot more than usual: not at all 9. Thoughts that you would be better off or of hurting yourself in some way: not at all Total score: 0 Depression Screening Interpretation: Negative Depression Screening Done: Yes 43256 - PHQ-9 Billing: Yes Source: Developed by Drs. Clarke Loomis, Porsche Del Rio, Trent Roberts and colleagues, with an educational whitney from [employer]. Thrive Questionnaire Date Thrive assessed: 11/26/24 I am a: Patient What is your living situation today?: I have a steady place to live Within the past 12 months, did the food you bought not last and you didn't have the money to get more?: Never true Within the past 12 months, did you worry whether your food would run out before you got money to buy more?: Never true Do you have trouble paying for medicines?: No Do you have trouble getting transportation to medical appointments?: No Do you have trouble paying your heating and electricity bill?: No Do you have trouble taking care of your child, family member or friend?: No Do you have trouble with day-to-day activities such as bathing, preparing meals, shopping, managing finances, etc.?: No Are you currently unemployed and looking for a job?: No Are you interested in more education?: No Please select the resources that you would like help with: None Currently or been in a relationship where the following occur: No concerns reported THRIVE Score: 0 AUDIT C Alcohol Use Questionnaire (AUDIT-C) 1. How often do you have a drink containing alcohol?: Never Total Score: 0 MONI-7 AMB Questionnaire MONI-7 Date MONI - 7 assessed: 11/26/24 Feeling nervous, anxious, or on edge: 0 = Not at all Not being able to stop or control worryin = Not at all Worrying too much about different things: 0 = Not at all Trouble relaxin = Not at all Being so restless that it is hard to sit still: 0 = Not at all Becoming easily annoyed or irritable: 0 = Not at all Feeling afraid as if something awful might happen: 0 = Not at all Total MONI-7 score (0-4 normal; 5-9 mild; 10-14 moderate; 15-21 severe): 0 Source: Developed by Drs. Clarke Loomis, Porsche Del Rio, Trent Roberts and colleagues, with an educational whitney from [employer]. MONI-7 Assessment Billing MONI-7 Assessment Tool: MONI-7 Assessment 58655 Review of Systems Const Denies headache(s) Eyes Denies loss of vision ENT Denies vertigo, Denies dizziness, Denies headache(s) and Denies sore throat Card Denies chest pain, Denies leg edema and Denies lightheadedness Resp Denies cough, Denies hemoptysis and Denies wheezing GI Denies abdominal pain, Denies melena, Denies constipation, Denies diarrhea and Denies vomiting Denies urinary frequency, Denies dysuria and Denies urinary urgency Musc Denies arthralgias, Denies joint swelling, Denies numbness and Denies tingling Neuro Denies Abnormal speech present, Denies behavioral changes, Denies vertigo, Denies dizziness, Denies headache(s), Denies loss of vision, Denies memory loss, Denies numbness and Denies tingling Psych Denies anxiety, Denies behavioral changes, Denies depression, Denies memory loss and Denies panic attacks Demarco/Lymph Reports as per HPI, Denies easy bleeding, Denies easy bruising and Reports other (left axilla lump, erythema in center on the top of the lump area) Aller/Immun Denies wheezing Physical exam (Primary Care) Vital Signs: Last Vital Signs Temp 98.7 F 11/26/24 15:44 Pulse 67 11/26/24 15:44 Resp 18 11/26/24 15:44 BP 118/78 11/26/24 15:44 Pulse Ox 97 11/26/24 15:44 Oxygen Delivery Method Room Air 11/26/24 15:44 BMI result Body Mass Index 22.8 Tobacco/Smoking Status: Tobacco use Status Tobacco use date assessed 11/26/24 11/26/24 16:00 Patient Tobacco Use Status Never used Tobacco 11/26/24 16:00 e-Cigarette/Vaping Use Never Used 11/26/24 16:00 PHQ-9: PHQ-9 Score PHQ-9: Total score 0 11/26/24 16:11 Depression Screening Interpretation: Negative Thrive Assessment: Date of Thrive Assessment Date Thrive assessed 11/26/24 11/26/24 16:00 Currently or been in a relationship where the following occur: No concerns reported Const General: healthy appearing, no acute distress, alert and awake Nutritional Appearance: well nourished Orientation/consciousness: oriented to person, oriented to place and oriented to time HENMT Ears: TM's normal bilaterally General nose exam: Normal nasal mucous membranes and turbinates present Eyes Conjunctivae: conjunctivae normal Sclerae: sclerae normal Pupils: Equal, round and reactive pupils present Neck Neck: Yes no lymphadenopathy and Yes no JVD Thyroid: Thyroid normal Carotids: no bruits Resp Effort & Inspection: normal respiratory effort and not tachypneic Auscultation: no crackles, no rales, no rhonchi and no wheezes Cardio Rate: regular rate Rhythm: regular rhythm Heart sounds: no murmurs and normal S1 and S2 GI Palpation (GI): Soft to palpation, nontender, no hepatomegaly and no splenomegaly Auscultation: normal bowel sounds Skin General skin exam: erythema Lesions: lesion noted (left axilla lump area deeper in the axilla with the erythema in the center) Neuro General: oriented to person, oriented to place and oriented to time Cranial nerves: Yes Equal, round and reactive pupils present Speech: No Abnormal speech present Gait exam (Neuro): Normal gait present Motor exam (neuro): no tremor noted Extrem General: Yes full ROM, Yes capillary refill normal, Yes no pedal edema, Yes no calf tenderness and Yes normal gait Right upper extremity: full ROM, normal capillary refill and no joint enlargement Left upper extremity: full ROM, normal capillary refill and no joint enlargement Right lower extremity: full ROM and normal capillary refill; no edema Left lower extremity: full ROM and normal capillary refill; no edema Psych Mental Status: mental status grossly normal Speech and movement: Normal speech and movement present Affect: normal affect Attitude: cooperative Thought process: Normal thought process present Coding Level of Care Code Est Pt Level 3 (55474) Diagnoses Abscess of axilla, left L02.412 Additional Codes MONI-7 Assessment Billing - MONI-7 Assessment Tool: MONI-7 Assessment 66784 ([id number]) PHQ-9 - 31473 - PHQ-9 Billing: Yes ([id number]) Time Spent (min) 37 Assessment & Plan Assessment & Plan (1) Abscess of axilla, left: Code(s): L02.412 - Cutaneous abscess of left axilla Category: Medical Plan Ultrasound ordered to further evaluate and doxycycline prophylactically in case of an infection process Orders: Orders US soft tiss head and/or neck 11/26/24 M79.89 - Other specified soft tissue disorders Medications: New doxycycline hyclate 100 mg PO BID 10 days 20 caps 0RF L02.412 - Cutaneous abscess of left axilla
--- OUTSIDE RECORDS SUMMARY | 2024-11-26 17:06 | XMS_ITS | Clinical Summary ---
Author Organization [employer] Address [address] [facility] [address] [place] [address] Care Team Providers Care Personal Financial Counselor Name Role Phone Unavailable Primary Care Provider [...]
--- OUTSIDE RECORDS SUMMARY | 2024-11-26 17:06 | XMS_ITS | Encounter Summary ---
Author Organization [employer] Address [address] [facility] [address] [place] [address] Care Team Providers Care Cartographic Drafter Name Role Phone Unavailable Primary Care Provider Unavailabl e Encounter Details Date Type Department Care Team (Latest Contact Info) Description 09/12/2021 Abstract [facility] CONVERSIONS Dental, Provider, DDS Social [...]
== END 2024-11-26 16:36 | disposition home or self-care (01) ==
PROVIDERS: PCP Internal Medicine
DX: L02.412 Cutaneous abscess of left axilla (principal)

== ENCOUNTER 2024-12-08 07:33 | Outpatient (REF) | payer OTHER, SELFPAY ==
--- NOTE | ~2024-12-08 | US_ITS ---
EXAMINATION: US ABDOMEN HISTORY: R79.89 - Other specified abnormal findings of blood chemistry TECHNIQUE: Real-time grayscale ultrasound imaging of the abdomen was performed and images were reviewed. COMPARISON: Comparison is made with the prior examination dated 05/30/2020. FINDINGS: Liver: The right lobe of the liver measures 14.1 cm in size. The left lobe of the liver measures 6.7 cm in size. The liver demonstrates nonspecific coarsened echotexture. No focal mass or intrahepatic biliary ductal dilatation is identified. There is normal hepatopedal flow in the portal vein. Gallbladder and biliary tree: There is a tiny polyp in the gallbladder. The gallbladder is otherwise unremarkable, without evidence of calculi, wall thickening, or pericholecystic fluid. There is no sonographic Pettit sign. The common bile duct is normal in caliber measuring 3 mm. Kidneys: The right kidney measures 9.3 cm in length. The left kidney measures 9.4 cm in length. The kidneys are unremarkable, without evidence of masses, hydronephrosis, or calculi. Pancreas: The pancreatic head, neck, and body are unremarkable. The pancreatic tail is obscured by bowel gas. Spleen: The spleen is normal in size and contour, measuring 7.6 cm in length. Abdominal aorta and inferior vena cava: The visualized portions of the abdominal aorta and inferior vena cava are normal in caliber. There is no free fluid in the abdomen. US/US abdomen complete IMPRESSION: Nonspecific coarsened hepatic echotexture. Tiny gallbladder polyp. Otherwise unremarkable abdominal ultrasound. Electronically signed by: Clarke Chan MD 12/08/2024 08:23 AM EDT
[2024-12-08 09:04] LABS: Prothrombin Time 11.3 SEC (10.9-12.4)
[2024-12-08 09:33] LABS: Alanine Aminotransferase 24 U/L (0-31); Albumin Level 4.3 g/dL (3.5-5.0); Alkaline Phosphatase 132 U/L (39-117); Aspartate Amino Transferase 25 U/L (5-31); Bilirubin Direct 0.2 mg/dL (0.0-0.5); Bilirubin Total 0.5 mg/dL (0.0-1.0); Iron 117 mcg/dL (30-160); Percent Iron Saturation 40 % (15-50); Total Iron Binding Capacity 293 mcg/dL (228-428); Total Protein 8.1 g/dL (6.5-8.0); Unsaturated Iron Binding 176 ug/dL
[2024-12-08 09:43] LABS: HBS Num1 191.22 mIU/mL (0-7.99); HBsAGNum1 0.21 S/CO (0.00-0.99); Hepatitis B Surface Antigen Negative (Negative); ~Hepatitis B Surface Antibody REACTIVE (Nonreactive)
[2024-12-08 09:44] LABS: Hepatitis A Antibody IgG REACTIVE (Nonreactive); ~Hepatitis A Antibody IgG 11.58 S/CO (0.00-0.99)
[2024-12-08 09:54] LABS: Ferritin 33 ng/mL (10-250)
[2024-12-09 07:38] LABS: Immunoglobulin A 486 mg/dL (47-310)
[2024-12-09 08:14] LABS: Alpha 1 Anti-trypsin 135 mg/dL (83-199)
[2024-12-09 21:18] LABS: Transglutaminase IgA <1.0 U/mL
[2024-12-13 23:59] LABS: Liver Kidney Microsomal Ab <=20.0 U (<=20.0)
== END 2024-12-08 07:34 | disposition home or self-care (01) ==
LOC: HO.US 07:33
PROVIDERS: PCP Internal Medicine; Visit Provider Internal Medicine Gastroenterology
DX: R79.89 Other specified abnormal findings of blood chemistry (principal)
CPT/HCPCS: 36415; 76700; 80076; 82103; 82728; 82784; 83540; 85610; 86364; 86376; 86706; 86708; 87340

== ENCOUNTER → 2024-12-08 07:36 | Outpatient (BNV) | payer OTHER, SELFPAY | PROVIDERS: PCP Internal Medicine; Visit Provider Radiology Diagnostic Radiology | DX: K80.20 Calculus of gallbladder without cholecystitis without obstruction (principal); R79.89 Other specified abnormal findings of blood chemistry | CPT/HCPCS: 76700 ==

== ENCOUNTER 2024-12-08 17:09 | Outpatient (AMB) | payer OTHER, SELFPAY ==
[2024-12-08 17:12] VITALS: BP 120/72; BMI 22.8
--- NOTE | 2024-12-08 17:12 | MHC.PC.OV ---
Vital Signs 12/08/24 17:12 Height 5 ft 3 in Weight 129 lb BMI 22.8 BP 120/72 Blood Pressure Location Lt brachial Position Sitting Intake Visit Reasons: follow up Therapeutic Radiologist Required: Yes Therapeutic Radiologist Language: Building Service Worker Name: Gisele Dickerson MD Information Interpreted: non-clinical & clinical Accompanied by: Self / Same As Patient Allergies No Known Allergies Allergy (Unknown, Verified 12/08/24 17:37) NOT APPLICABLE Medication List - Last Reconciled 12/08/24 by Gisele Dickerson MD cetirizine (All Day Allergy (cetirizine)) 10 mg PO DAILY PRN 90 days doxycycline hyclate 100 mg PO BID 10 days pantoprazole 40 mg PO DAILY 30 days sennosides-docusate sodium 8.6-50 mg (Senna with Docusate Sodium) 1 tab-cap PO BEDTIME 60 days sumatriptan succinate 25 mg PO Q2-4H PRN 30 days Tobacco use date assessed: 11/26/24 Dental Screening Dental Screen Date: 11/26/24 HPI HPI Comments History of Present Illness Details The patient is a 54-year-old female presenting with concern of a visible lump in the axilla region. She reports pain and a change in appearance of the lump, which initially displayed redness but has now developed a central black area. The concern stems from an increase in size and discomfort associated with the lump, which she has been addressing by covering it with a bandage. Her medical history includes taking doxycycline, which she missed due to fasting requirements related to a separate gastrointestinal evaluation. Additionally, previous laboratory assessments identified low Vitamin D levels at 24.2 as of August, prompting a recommendation for supplementation, while other liver function tests have normalized from prior elevated states. The current symptoms surround the axillary area, indicating a possibly infectious process or abscess formation, requiring an ultrasound assessment. Denies any breast-related symptoms and the mass is notably tender. Her medication regimen includes allergy medication, gastric acid treatment, constipation management, and migraine medication. [facility] Medical History Lump in armpit Allergic rhinitis Hypovitaminosis D Urticaria Hand numbness Family history of diabetes mellitus Abscess of axilla, left Overactive bladder Hospital discharge follow-up Incontinence Recurrent UTI Chronic constipation RUQ abdominal pain Constipation Hypovitaminosis D Irregular menses Urinary incontinence GERD (gastroesophageal reflux disease) Migraine headache with aura History of positive PPD Surgical History History of esophagogastroduodenoscopy (EGD) Hx of colonoscopy S/P tendon repair History of dilation and curettage History of removal of ovarian cyst History of tubal ligation Family History Father Stomach cancer Mother Heart disease Arthritis Elevated cholesterol Diabetes Hypertension Brother No problems noted. Brother No problems noted. Sister No problems noted. Sister No problems noted. Sister No problems noted. Sister No problems noted. Son No problems noted. Son No problems noted. Son No problems noted. 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 Clarke Loomis, Porsche Del Rio, Trent Roberts and colleagues, with an educational whitney from [employer]. Review of Systems Const All systems reviewed & are unremarkable except as noted in HPI and below Card Denies chest pain at rest, Denies chest pain with activity, Denies edema, Denies irregular heart rhythm, Denies claudication, Denies dyspnea, Denies dyspnea on exertion, Denies orthopnea, Denies paroxysmal nocturnal dyspnea and Denies slow heart rate Resp Denies cough, Denies dyspnea and Denies dyspnea on exertion Physical exam (Primary Care) Vital Signs: Last Vital Signs BP 120/72 12/08/24 17:12 BMI result Body Mass Index 22.8 Tobacco/Smoking Status: Tobacco use Status Tobacco use date assessed 11/26/24 12/08/24 17:16 Patient Tobacco Use Status Never used Tobacco 12/08/24 17:16 e-Cigarette/Vaping Use Never Used 12/08/24 17:16 Thrive Assessment: Date of Thrive Assessment Date Thrive assessed 11/26/24 12/08/24 17:16 Resp Effort & Inspection: normal respiratory effort Auscultation: clear to auscultation bilaterally Cardio Jugular venous distension: no JVD Rate: regular rate Rhythm: regular rhythm Heart sounds: S1 normal heart sound present and S2 normal heart sound present Extrem General: Yes full ROM Coding Level of Care Code Est Pt Level 4 (08551) Complex EM visit Add On G2211 Diagnoses Left axillary swelling M79.89 Mild major depression F32.0 Hypovitaminosis D E55.9 Time Spent (min) 21 Assessment & Plan Assessment & Plan (1) Left axillary swelling: Code(s): M79.89 - Other specified soft tissue disorders Category: Medical (2) Mild major depression: Code(s): F32.0 - Major depressive disorder, single episode, mild Category: Medical (3) Hypovitaminosis D: Code(s): E55.9 - Vitamin D deficiency, unspecified Category: Medical Plan An ultrasound of the axillary mass has been planned to clarify the nature of the lump, with concern for possible abscess or infection. Doxycycline, an antibiotic, has been prescribed for suspected skin infection, with counseling provided on ensuring full course completion. The low Vitamin D level identified in August justifies supplementation to address potential deficiency. Further assessment awaits pending laboratory results, where follow-up action is contingent upon findings. Ongoing management includes potential surgical evaluation should results point toward an abscess requiring intervention. Patient was informed and verbally consented to the use of an ambient scribe for clinic note documentation during this visit. During our discussion, I informed the patient that the ultrasound will help determine the nature of the axillary lump, considering the possibilities of abscess or benign formation. We reviewed the significance of completing the antibiotic doxycycline to prevent escalation of the suspected infection. I expressed the importance of addressing her Vitamin D deficiency identified in past lab work, recommending daily supplementation to maintain levels. We discussed the potential for surgical consultation based on forthcoming ultrasound results, and I emphasized her understanding of the outlined plan, as she agreed with the completion of prescribed treatments. Patient Instructions: - Complete the prescribed doxycycline as directed. - Take doxycycline with food to minimize stomach upset. - Start a Vitamin D supplement daily as discussed to improve deficiency levels. - Await the ultrasound appointment and follow up on lab results. - Contact the office if symptoms worsen or new symptoms arise. - Follow sun exposure recommendations including using sunscreen to maintain skin health.
--- OUTSIDE RECORDS SUMMARY | 2024-12-08 17:53 | XMS_ITS | Encounter Summary ---
Author Organization [employer] Address [address] [facility] [address] [place] [address] Care Team Providers Care Motel Operator Name Role Phone Unavailable Primary Care Provider Unavailabl e Encounter Details Date Type Department Care Team (Latest Contact Info) Description 09/12/2021 Abstract [facility] CONVERSIONS Dental, Provider, DDS Social History Tobacco [...]
--- OUTSIDE RECORDS SUMMARY | 2024-12-08 17:53 | XMS_ITS | Clinical Summary ---
Author Organization [employer] Address [address] [facility] [address] [place] [address] Care Team Providers Care Ice Cream Man Name Role Phone Unavailable Primary Care Provider [...]
== END 2024-12-08 17:44 | disposition home or self-care (01) ==
LOC: HO.HMCH 17:09
PROVIDERS: PCP Internal Medicine; Visit Provider Internal Medicine
DX: M79.89 Other specified soft tissue disorders (principal); F32.0 Major depressive disorder, single episode, mild; E55.9 Vitamin D deficiency, unspecified

== ENCOUNTER 2024-12-28 15:46 | Outpatient (REF) | payer OTHER, SELFPAY ==
--- NOTE | ~2024-12-28 | US_ITS ---
EXAMINATION: US EXTREMITY MUSCULOSKELETAL LIMITED HISTORY: M79.89 - Other specified soft tissue disorders COMPARISON: Comparison is made with the prior examination dated 01/14/2023. FINDINGS: Sonographic examination of the palpable abnormality in the left axilla was performed. There is a 6 x 5 x 2 mm complex hypoechoic area just beneath the skin which demonstrates a small tract to the skin surface. The lesion is slightly smaller in size on the prior study (previously 8 x 9 x 3 mm), and likely represents a sebaceous cyst. US/US extremity nonvascular anders IMPRESSION: 6 x 5 x 2 mm probable sebaceous cyst in the left axilla corresponding to the palpable findings. This is slightly smaller than on the prior study. Electronically signed by: Clarke Chan MD 12/29/2024 07:19 AM EDT
--- OUTSIDE RECORDS SUMMARY | 2024-12-28 18:41 | XMS_ITS | Clinical Summary ---
Author Organization [employer] Address [address] [place] [address] Care Team Providers Care Fuel Storage Technician Name Role Phone Unavailable Primary Care Provider [...] FIT DNA/Cologuard 1968 FIT 1968 FOBT 1968 Lipid Panel 1968 Sigmoidoscopy 1968 Alcohol/Substance Use Screening 1980 Tobacco Screening 1980 Pap Smear 1989 Cervical Cancer Screening 1998 [...]
--- OUTSIDE RECORDS SUMMARY | 2024-12-28 18:41 | XMS_ITS | Encounter Summary ---
Author Organization [employer] Address [address] [facility] [address] [place] [address] Care Team Providers Care Discovery Manager Name Role Phone Unavailable Primary Care Provider Unavailabl e Encounter Details Date Type Department Care Team (Latest Contact Info) Description 09/12/2021 Abstract [facility] CONVERSIONS Dental, Provider, DDS Social History Tobacco [...]
== END 2024-12-28 15:47 | disposition home or self-care (01) ==
LOC: HO.US 15:46
PROVIDERS: PCP Internal Medicine
DX: R60.0 Localized edema (principal)
CPT/HCPCS: 76882

== ENCOUNTER → 2024-12-28 15:48 | Outpatient (BNV) | payer OTHER, SELFPAY | PROVIDERS: PCP Internal Medicine; Visit Provider Radiology Diagnostic Radiology | DX: L02.412 Cutaneous abscess of left axilla (principal) | CPT/HCPCS: 76882 ==

== ENCOUNTER 2025-03-15 08:34 | Outpatient (AMB) | payer OTHER, SELFPAY ==
--- NOTE | 2025-03-15 08:45 | A.OFFVIS_ITS ---
Vital Signs 3 03/15/25 08:56 Height 5 ft 3 in Weight 126 lb BMI 22.3 BP 136/65 Blood Pressure Location Rt brachial Position Sitting Pulse 65 Intake Visit Reasons: Sebaceous cyst~ Lt axilla Intake Note: Patient is seen in office for evaluation of a sebaceous cyst of the left axilla. Pt c/o: enlarging, painful when it gets swollen. Had a flare up in November but improved w/ Doxycycline course. Combat Control Manager Required: Yes Accompanied by: Self / Same As Patient Allergies No Known Allergies Allergy (Unknown, Verified 03/15/25 08:54) NOT APPLICABLE Medication List - Last Reconciled 03/15/25 by Moy Staley MD bisacodyl (Dulcolax (bisacodyl)) 10 mg (2 x 5 mg) PO ONCE 7 days cetirizine (All Day Allergy (cetirizine)) 10 mg PO DAILY PRN 90 days sumatriptan succinate 25 mg PO Q2-4H PRN 30 days HPI Comments Details: 54-year-old female patient presenting for evaluation of a cyst of the left axilla. The cyst was 1st identified approximately 3 years ago but was initially quite small. Over time the lesion has increased in size but especially in November of this year when it suddenly became red and painful. She was subsequently treated with oral antibiotics which did reduce the size of the lesion as well as the pain. She denied any bleeding or discharge from the wound. She is now asymptomatic but is requesting excision of the lesion to prevent further infections. She denies similar lesions in other parts of her body. She denies any previous infections at this site. [facility] Medical History Lump in armpit Allergic rhinitis Hypovitaminosis D Urticaria Hand numbness Family history of diabetes mellitus Abscess of axilla, left Overactive bladder Hospital discharge follow-up Incontinence Recurrent UTI Chronic constipation RUQ abdominal pain Constipation Hypovitaminosis D Irregular menses Urinary incontinence GERD (gastroesophageal reflux disease) Migraine headache with aura History of positive PPD Surgical History History of esophagogastroduodenoscopy (EGD) Hx of colonoscopy S/P tendon repair History of dilation and curettage History of removal of ovarian cyst History of tubal ligation Family History Father Stomach cancer Mother Heart disease Arthritis Elevated cholesterol Diabetes Hypertension Brother No problems noted. Brother No problems noted. Sister No problems noted. Sister No problems noted. Sister No problems noted. Sister No problems noted. Son No problems noted. Son No problems noted. Son No problems noted. 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 Current occupational exposures/hazards: No Cognitive needs: No Hearing needs: No Vision needs: Yes Female Reproductive History Menstrual Age of Menarche: 12 Review of Systems Const All systems reviewed & are unremarkable except as noted in HPI and below Physical Exam Vital Signs: Last Vital Signs Pulse 65 03/15/25 08:56 BP 136/65 03/15/25 08:56 BMI result Body Mass Index 22.3 Const General: no acute distress Nutritional Appearance: well nourished Orientation/consciousness: patient oriented x3 Limitations: no limitations HEENT Head: Yes normocephalic and Yes atraumatic Chest Other: left anterior axilla with a 3 mm dark cystic lesion in the dermis with no apparent central punctum and no erythema Chest/axillae images: 2 1. Site of cystic lesion left axilla Resp Effort & Inspection: normal respiratory effort, no audible wheezes, no cough and no respiratory distress GI Inspection: Yes normal to inspection Skin Other: warm, dry no rash Neuro General: patient oriented x3 Assessment & Plan Assessment & Plan (1) Lump in armpit: Comment: left axilla. Code(s): R22.30 - Localized swelling, mass and lump, unspecified upper limb Category: Medical Qualifiers: Laterality: left Qualified Code(s): R22.32 - Localized swelling, mass and lump, left upper limb Plan 54-year-old female patient presenting with a left axillary skin cyst which recently became infected requiring oral antibiotics. The lesion has now decreased in size and the patient is requesting excision of this lesion to prevent further infections. On examination she has an approximately 3 mm black discolored lesion suggestive of a epidermal inclusion cyst. I recommended an excision under local anesthesia as an office based procedure. After discussion of the procedure, risks, and alternatives, she consents to the surgery. Coding Level of Care Code New Pt Level 4 (64533) Diagnoses Mass of left axilla R22.32 Laterality: left
--- OUTSIDE RECORDS SUMMARY | 2025-03-15 08:51 | XMS_ITS | Clinical Summary ---
Author Organization [employer] Address [address] [place] [address] Care Team Providers Care Recovery Room Nurse Name Role Phone Unavailable Primary Care Provider [...] FOBT 1968 Lipid Panel 1968 Sigmoidoscopy 1968 Disability Screening 1968 Alcohol/Substance Use Screening 1980 Tobacco Screening 1980 Pap Smear 1989 Cervical Cancer Screening 1998 HPV/Cotest 1998 Mammogram 2008 Pneumococcal Vaccine: 50+ Years (1 of 1 - PCV) 2018 Zoster Vaccines (1 of 2) 2018 DTaP/Tdap/Td Vaccines (2 - Td or Tdap) 03/08/2023 03/08/2013 COVID-19 Vaccine ( - season) 2024 Influenza Vaccine (Season Ended) 2025 07/13/2015, 08/22/2014, 07/13/2013, Additional history exists RSV Patients [...] patient's age to complete this topic Meningococcal B Vaccine Aged Out No l onger eligible based on patient's age to complete [...]
[2025-03-15 08:56] VITALS: BP 136/65; PULSE 65; BMI 22.3
== END 2025-03-15 09:05 | disposition home or self-care (01) ==
LOC: HO.HGS 08:34
PROVIDERS: PCP Internal Medicine; Referring Provider Internal Medicine; Visit Provider Surgery
DX: R22.32 Localized swelling, mass and lump, left upper limb (principal)
CPT/HCPCS: 99204

== ENCOUNTER 2025-03-17 13:23 | Outpatient (AMB) | payer OTHER, SELFPAY ==
--- NOTE | 2025-03-17 13:32 | A.OFFVIS_ITS ---
Vital Signs 03/17/25 13:33 Height 5 ft 3 in Weight 125 lb 10.616 oz BMI 22.3 BP 118/59 L Blood Pressure Location Lt brachial Position Sitting Pulse 67 Intake Visit Reasons: 4 month f/u US Intake Note: Leonor presents in the office as a 4 month follow up. CC: No concerns today! 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 Every time I eat, I get a lot of gas and it hurts. Seen at 2 months ago with abd pain Had labs, urine test and an US and was told everything was fine She was also having migraine CAR which was treated. Has a BM every day and can be associated with intermittent straining Taking Senna every night - sometimes takes 2. Taking Omeprazole and has not been helping. She was prescribed Pantoprazole since pt states there was no dose PAST VISITS: Has a BM daily Taking Omeprazole and states its not helping Notes excessive gas after eating Patient cc: abdominal discomfort, acid reflex with a lot of gasses, after Colonoscopy she is been with constipation. Complains of constipation, gas and bloating since she had her colonoscopy. Complains of a long hx of constipation - worse since her colon Has a BM once a day in the am with passage of hard stools. Takes 2 fibre gummies daily which has helped. Patient complains of mild heartburn and denies dysphagia, nausea, vomiting, change in appetite or weight. Denies recent diarrhea, black stools or rectal bleeding. Patient denies smoking or ETOH abuse, major cardiac or pulmonary problems, loud snoring or sleep apnea Denies problems with anesthesia in the past. Denies being on chronic anticoagulation. Patient denies known family history of colon polyps, colon cancer. Dad with stomach cancer at age 68 yrs LABS IN [facility] : Reviewed IMAGING STUDIES: 05/2024 UGI SHOWED: 1. Small type I hiatal hernia. 2. Significant gastroesophageal reflux. 3. Thickened appearance of the areae gastricae. In addition there are multiple foci of contrast pooling in the fundus the stomach. These findings are suggestive of erosive gastritis. Recommend correlation of EGD. ENDOSCOPIC STUDIES: 10/15/24 EGD AND COLON SHOWED: Endoscopy Findings: ESOPHAGUS: A single 0.5 cms healing erosion ar GE junction. No Almazan's. STOMACH: Diffuse gastritis and superficial chronic appearing erosions DUODENUM: Normal - biopsied to check for celiac sprue Colonoscopy Findings: Two small to medium sized polyps were removed Moderate diverticulosis seen in the left colon Moderate hemorrhoids on retroflexed exam. Plan: Repeat Colonoscopy in 3-5 years if polyps are adenomatous and 10 year if polyps are hyperplastic. Above findings were reviewed with the patient and relevant handouts were given and the discharge area. BIOPSIES SHOWED: A. Small bowel, biopsy: Small bowel/duodenal mucosa with preserved villi and no specific change; no evidence of celiac disease. B. Gastric antrum, biopsy: Gastric antral mucosa with minimal chronic inactive gastritis; negative for intestinal metaplasia and dysplasia. C. Gastric body, biopsy: Gastric body mucosa with focal minimal chronic inactive inflammation; negative for intestinal metaplasia and dysplasia. D. Colon, transverse, polyps: Tubular adenomas (2 pieces); negative for high- grade dysplasia and carcinoma. Comment: (B and C): Immunostains for H. pylori were negative Letter sent with biopsy results Patient placed on the colonoscopy recall list for repeat colonoscopy in 3 years. PAST GI HISTORY BY REVIEW OF MEDICAL RECORDS: 11/2023 PT WAS SEEN BY JOAQUÍN Hernandez PA: 53 y/o female last seen 05/2022- RLQ everyday when she wakes up-she has not know if it is due to her bowels. BM QD-typically normal Review of record shows Last colonoscopy 2016 Dr. Miller no polyps everything she eats makes her burp-reviewed diet- Review record shows history of H pylori treated negative test of cure She has no nausea, vomiting hematemesis, hematochezia fever chills PFSH Medical History Lump in armpit Allergic rhinitis Hypovitaminosis D Urticaria Hand numbness Family history of diabetes mellitus Abscess of axilla, left Overactive bladder Hospital discharge follow-up Incontinence Recurrent UTI Chronic constipation RUQ abdominal pain Constipation Hypovitaminosis D Irregular menses Urinary incontinence GERD (gastroesophageal reflux disease) Migraine headache with aura History of positive PPD Surgical History History of esophagogastroduodenoscopy (EGD) Hx of colonoscopy S/P tendon repair History of dilation and curettage History of removal of ovarian cyst History of tubal ligation Family History Father Stomach cancer Mother Heart disease Arthritis Elevated cholesterol Diabetes Hypertension Brother No problems noted. Brother No problems noted. Sister No problems noted. Sister No problems noted. Sister No problems noted. Sister No problems noted. Son No problems noted. Son No problems noted. Son No problems noted. 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 Current occupational exposures/hazards: No Cognitive needs: No Hearing needs: No Vision needs: Yes Female Reproductive History Menstrual Age of Menarche: 12 Review of Systems Const All systems reviewed & are unremarkable except as noted in HPI and below Physical Exam Vital Signs: Last Vital Signs Pulse 67 03/17/25 13:33 BP 118/59 L 03/17/25 13:33 BMI result Body Mass Index 22.3 Const General: healthy appearing and no acute distress Nutritional Appearance: average body habitus Orientation/consciousness: patient oriented x3 Limitations: language barrier HEENT Head: Yes normal to inspection Ears: hearing grossly normal bilaterally Eyes Sclerae: sclerae normal Pupils: Equal, round and reactive pupils present Neck Neck: Yes normal visual inspection Chest Chest palpation & inspection: normal inspection of the chest Resp Effort & Inspection: normal respiratory effort Auscultation: clear to auscultation bilaterally Cardio Palpation: normal PMI Rate: regular rate Rhythm: regular rhythm Heart sounds: S1 normal heart sound present, S2 normal heart sound present and no murmurs GI Palpation (GI): Soft to palpation, nontender and No hepatosplenomegaly present Auscultation: normal bowel sounds Rectal Exam - Female: deferred Skin General skin exam: no rashes or lesions noted Neuro General: patient oriented x3, gait normal and moves all extremities Cranial nerves: Yes Equal, round and reactive pupils present Psych Appearance: grossly normal Mental Status: mental status grossly normal Assessment & Plan Assessment & Plan (1) RUQ abdominal pain: Comment: Normal U/S-will get liver enzymes, CBC Code(s): R10.11 - Right upper quadrant pain Category: Medical (2) Chronic constipation: Comment: 51year-old female chronic constipation when following bowel regimen, stool softener high-fiber diet,- Gas, will use Gas-X good response in the past. continue High-fiber/FODMAP- Reviewed a previous colonoscopy 2017 discussed repeat-she will consider symptoms recur Code(s): K59.09 - Other constipation Category: Medical (3) Elevated liver enzymes: Comment: Encouraged patient to get follow-up blood work to further assess elevated liver enzymes. She will continue bowel regimen for constipation patient requested distribution center manager 15 minutes into phone call. Will call her back when distribution center manager available. patient called back completed visit Code(s): R74.8 - Abnormal levels of other serum enzymes Category: Medical (4) Hemorrhoids: Code(s): K64.9 - Unspecified hemorrhoids Category: Medical (5) Chronic GERD: Code(s): K21.9 - Gastro-esophageal reflux disease without esophagitis Category: Medical (6) Epigastric pain: Code(s): R10.13 - Epigastric pain Category: Medical Plan 54 year old [place]-speaking female with migraine headaches and hypercholesterolemia seen for follow-up of elevated LFTs, GERD and chronic constipation Pt complains of postprandial epigastric pain and abdominal bloating. Hepatitis serologies were negative - immunity to hepatitis a and B. BALTAZAR, smooth muscle antibody and antimitochondrial antibody were negative. Celiac serologies were normal. Abdominal ultrasound showed a tiny gallbladder polyp. Repeat LFTs showed normal transaminases and mild elevation of alkaline phosphatase. 03/17/25 Pt was advised to increase omeprazole to 20 mg twice daily Continue taking senna at bedtime. Start lubiprostone 8 mcg twice daily (if approved by her insurance) Follow-up in 2 months. Medications: New omeprazole 20 mg PO BID 120 caps 3RF 60 days R10.13 - Epigastric pain lubiprostone 8 mcg PO BID 60 caps 3RF 30 days K59.09 - Other constipation Coding Level of Care Code Est Pt Level 4 (56255) Diagnoses RUQ abdominal pain R10.11 Chronic constipation K59.09 Elevated liver enzymes R74.8 Hemorrhoids K64.9 Chronic GERD K21.9 Epigastric pain R10.13 Time Spent (min) 23
[2025-03-17 13:33] VITALS: BP 118/59; PULSE 67; BMI 22.3
--- OUTSIDE RECORDS SUMMARY | 2025-03-17 16:07 | XMS_ITS | Clinical Summary ---
Author Organization [employer] Address [address] [facility] [address] [address] [place] [address] Care Team Providers Care Redipper Name Role Phone Unavailable Primary Care Provider [...]
== END 2025-03-17 14:29 | disposition home or self-care (01) ==
LOC: HO.HGI 13:23
PROVIDERS: PCP Internal Medicine; Visit Provider Internal Medicine Gastroenterology
DX: R10.11 Right upper quadrant pain (principal); K59.09 Other constipation; R74.8 Abnormal levels of other serum enzymes; K64.9 Unspecified hemorrhoids; K21.9 Gastro-esophageal reflux disease without esophagitis; R10.13 Epigastric pain
CPT/HCPCS: 99214

== ENCOUNTER 2025-04-26 14:26 | Outpatient (AMB) | payer OTHER, SELFPAY ==
--- NOTE | 2025-04-26 15:05 | A.OFFVIS_ITS ---
Vital Signs 04/26/25 15:23 Height 5 ft 3 in Weight 125 lb 10.616 oz BMI 22.3 BP 110/70 Blood Pressure Location Lt brachial Position Sitting Intake Visit Reasons: exc EIC~ Lt axilla Intake Note: Patient is seen for office procedure removal of cyst of the left axilla. Pt c/o: here for removal of cyst Wool Hat Sanding Machine Operator Required: Yes Wool Hat Sanding Machine Operator Language: Emergency Care Attendant Services: Wool Hat Sanding Machine Operator Present Wool Hat Sanding Machine Operator Name: Amalia OLSEN Information Interpreted: non-clinical & clinical Meter Engineer: Meter Engineer Present Accompanied by: Self / Same As Patient Allergies No Known Allergies Allergy (Unknown, Verified 04/26/25 15:23) NOT APPLICABLE Medication List - Last Reconciled 04/26/25 by Moy Staley MD cetirizine (All Day Allergy (cetirizine)) 10 mg PO DAILY PRN 90 days lactulose 20 grams (30 mL) PO BID 30 days lubiprostone 8 mcg PO BID 30 days omeprazole 20 mg PO BID 60 days sennosides-docusate sodium 8.6-50 mg (Senna with Docusate Sodium) 1 tab-cap PO BEDTIME sumatriptan succinate 25 mg PO Q2-4H PRN 30 days HPI Comments Details: 54-year-old female returning for excision of a previously infected cyst of the left axilla. She feels well and denies any ongoing symptoms from the cyst she wishes to proceed with cyst excision. [facility] Medical History Lump in armpit Allergic rhinitis Hypovitaminosis D Urticaria Hand numbness Family history of diabetes mellitus Abscess of axilla, left Overactive bladder Hospital discharge follow-up Incontinence Recurrent UTI Chronic constipation RUQ abdominal pain Constipation Hypovitaminosis D Irregular menses Urinary incontinence GERD (gastroesophageal reflux disease) Migraine headache with aura History of positive PPD Surgical History History of esophagogastroduodenoscopy (EGD) Hx of colonoscopy S/P tendon repair History of dilation and curettage History of removal of ovarian cyst History of tubal ligation Family History Father Stomach cancer Mother Heart disease Arthritis Elevated cholesterol Diabetes Hypertension Brother No problems noted. Brother No problems noted. Sister No problems noted. Sister No problems noted. Sister No problems noted. Sister No problems noted. Son No problems noted. Son No problems noted. Son No problems noted. 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 occupational exposures/hazards: No Cognitive needs: No Hearing needs: No Vision needs: Yes Female Reproductive History Menstrual Age of Menarche: 12 Office Procedures Excision Details: Preoperative diagnosis: Epidermal inclusion cyst left axilla Postoperative diagnosis: Same Procedure: Excision of epidermal inclusion cyst left axilla Surgeon: Moy Staley MD Resistance Machine Welder Setter: None Anesthesia: Lidocaine 1% with epinephrine Indications for procedure: 7 mm epidermal inclusion cyst previously infected but now resolved left axilla Operative findings: 7 mm epidermal inclusion cyst in the upper left axilla Specimen: Epidermal inclusion cyst left axilla Estimated blood loss: Less than 2 mL Complications: None Procedure details: Patient was brought to the procedure room and placed in the supine position with her left arm extended over her head. The site of surgery was confirmed by the patient in the left axilla. After assuring informed consent, the skin was prepped with Betadine and draped in a sterile fashion. Local anesthesia consisting of 1% lidocaine with epinephrine was infiltrated circumferentially around the cyst. An elliptical incision was then made with a scalpel and carried out through subcutaneous tissue and around the cyst wall. The cyst was then excised and sent to pathology for further examination. Hemostasis was assured using light pressure. Skin was then closed using interrupted 3-0 nylon sutures. Sterile dressings consisting of 2 x 2 gauze and Tegaderm were then applied. The patient tolerated the procedure well. She was discharged home in stable condition. 30328-hvwvn/arms/legs 0.6-1cm Procedure code (CPT) selection complete Assessment & Plan Assessment & Plan (1) Sebaceous cyst of axilla: Code(s): L72.3 - Sebaceous cyst Category: Medical Plan 54-year-old female patient returning today for excision of an epidermal inclusion cyst of the left axilla. She tolerated the procedure well and will return in 1 week for suture removal. Coding Level of Care Code Procedure Only Diagnoses Sebaceous cyst of axilla L72.3 CPT Codes Trunk/Arms/Legs - CPT: 10001-skcns/arms/legs 0.6-1cm ([id number])
--- OUTSIDE RECORDS SUMMARY | 2025-04-26 15:05 | XMS_ITS | Patient Health Record ---
Author Organization [facility] Address [address] [place] [address] Care Team Providers Care Cell Attendant Name Role Phone Gisele Patton Primary Care Provider Mega Warner Jr Unavailable [phone] Reason For Referral No Information Medications Medication SIG (Take, Route, Frequency, Duration) Notes Start Date End Date Status DOK Active Problems Problem Type SNOMED Code ICD Code Onset Dates Problem Status W/U Status Risk Notes Problem 064812358 Left lower quadrant pain (R10.32) Active confirmed Problem 179211621 Abdominal bloating (R14.0) Active confirmed Problem 157114733 Right lower quadrant pain (R10.31) Active confirmed Problem 24195602 Abdominal pain, epigastric (R10.13) Active confirmed Problem 992938850 Irritable bowel syndrome with constipation (K58.1) Active confirmed Plan Of Treatment Pending Test Test Name Order Date XR GI SMALL BOWEL SERIES 07/25/2016 Future Test Test Name Order Date COLONOSCOPY 01/16/2017 Insurance Providers Payer Name Payer Address Payer Phone Subscriber Number Group Number Insured Name Patient Relationship to Insured Coverage Start Date Coverage End Date [facility] [address] [place] [phone] [id number] AUGUSTINALFONSO JACKER Self - patient is the insured MEDICAID OF [facility] [address] [place] [phone] [id number] RICHA RUFFIN Self - patient is the insured Medical (General) History Medical History History ICD Code Denies [place],DM,CVA,Lung disease,renal dise ase urinary incontinence migraine headaches positive PPD, chest x-ray negative Surgical History Surgery Date(Month/Year) carpal tunnel release ovarian surgery
--- OUTSIDE RECORDS SUMMARY | 2025-04-26 15:05 | XMS_ITS | Clinical Summary ---
Author Organization [facility] Address [address] [facility] [address] [place] [id number] Phone Care Team Providers Care Director Sales Name Role Phone Gisele Patton MD Primary Care Provid er Allergies No known active allergies Medications fluticasone propionate (FLONASE) 50 mcg/actuation nasal spray INHALE 1 SPRAY IN EACH NOSTRIL TWICE DAILY 2 Active montelukast (SINGULAIR) 10 mg tablet Take 10 mg by mouth daily. 2 Active cholecalciferol , vitamin D3, (D3-1999 ORAL) Take 25 mcg by mouth. 1 Active simethicone (MYLICON) 125 MG chewable tablet CHEW AND SWALLOW 1 TABLET 2 OR 3 TIMES DAILY NEEDED FOR GAS 2 Active loratadine (CLARITIN) 10 mg tablet Take 10 mg by mouth daily. 2 Active albuterol 90 mcg/actuation inhaler Inhale 2 puffs into the lungs every 6 (six) hours as needed for wheezing or shortness of breath/dyspnea . 18 g 3 Active inhaler spacing device (AEROCHAMBER,BR EATHERITE) Spcr Inhale 1 each into the lungs every 6 (six) hours as needed (with inhaler). 1 each 3 Active lidocaine 2 % Soln Use as directed 15 mL in the mouth or throat every 4 (four) hours as needed. 100 mL 3 Active Encounters Date Type Department Care Team Description 02/23/2025 4:12 PM EDT - 02/23/2025 7:28 PM EDT Emergency [facility] [address] [place] [address] Discharge Disposition: Home or Self Care from Last 3 Months Social History Tobacco Use Types Packs/Day Years Used Date Smoking Tobacco: Never Smokeless Tobacco: Never Alcohol Use Standard Drinks/Week Comments Not Currently 0 (1 standard drink = 0.6 oz pur e alcohol) Education Answer Date Recorded Are you interested in more education? Not on amanda e 01/17/2023 Are you concerned about learning? Not on file 01/17/2023 No 01/17/2023 No 01/17/2023 Digital Access Answer Date Recorded No 02/17/2023 No 02/17/2023 No 02/17/2023 Reliable internet access at home? Not on file 02/17/2023 Device with a working camera? Not on file Intimate Partner Violence Answer Date R ecorded Are you denied basic needs s uch as food, clothing, or medical care? No 02/23/2025 In the past 12 months have y ou been in a relationship with a person who hurts, threatens, or tries to control you? No 02/23/2025 Are you denied basic needs s uch as food, clothing, or medical care? No 02/23/2025 In the past 12 months have y ou been in a relationship with a person who hurts, threatens, or tries to control you? No 02/23/2025 Comments Unknown Sex and Gender Information Value Date Recorded Sex Assigned at Not on file Legal Sex Female 9:37 PM EDT Gender Identity Not on file Sexual Orientation Not on file Last Filed Vital Signs Vital Sign Reading Time Taken Comments Blood Pressure 123/70 02/23/2025 7:16 PM EDT Pulse 65 02/23/2025 7:16 PM EDT Temperature 36.5 C (97.7 F) 02/23/2025 7:16 PM EDT Respiratory Rate 18 02/23/2025 7:16 PM EDT Oxygen Saturation 100% 02/23/2025 7:16 PM EDT Inhaled Oxygen Concentration - - Weight 59 kg (130 lb) 02/23/2025 4:02 PM EDT Height 160 cm (5' 3 ) 02/23/2025 4:02 PM EDT Body Mass Index 23.03 02/23/2025 4:02 PM EDT Plan of Treatment Health Maintenance Due Date Last Done Comments LIPID PANEL 1968 DEPRESSION SCREENING 1980 HEPATITIS C SCREENING 1986 HIV ONE-TIME SCREENING (18-6 5 YEARS) 1986 PAP SMEAR 1989 SMOKING STATUS SCREENING (On ce After 26 Yrs) 1994 MAMMOGRAM 2008 COLOGUARD 2013 COLONOSCOPY 2013 COLORECTAL CANCER SCREENING 2013 FIT TEST 2013 FOBT 2013 SIGMOIDOSCOPY 2013 VIRTUAL COLONOSCOPY 2013 PNEUMOCOCCAL VACCINES (50+ years) (1 of 1 - PCV) 2018 ZOSTER VACCINES (1 of 2) 2018 Adult Td,Tdap Booster 03/08/2023 03/08/2013 COVID-19 VACCINE (4 - 2023-2 5 season) 2024 10/10/2021, 02/15/2021, 01/25/2021 HEPATITIS A VACCINES Aged Out No long er eligible based on patient's age to complete this topic HIB VACCINES Aged Out No longer eligi ble based on patient's age to complete this topic MENINGOCOCCAL VACCINES (ACWY) Aged Out No longer eligible based on patient's age to complete this topic MENINGOCOCCAL VACCINES (B) Aged Out N o longer eligible based on patient's age to complete this topic Medical Devices Not on file Procedures Procedure Name Priority Date/Time Associated Diagnosis Comments US ABDOMEN LIMITED RIGHT UPPER QUADRANT Routine 02/23/2025 5:46 PM EDT LIPASE STAT 02/23/2025 4:16 PM EDT LFTS (HEPATIC PANEL) STAT 02/23/2025 4:16 PM EDT BASIC METABOLIC PANEL STAT 02/23/2025 4:16 PM EDT CBC AND DIFFERENTIAL STAT 02/23/2025 4:16 PM EDT URINE SEDIMENT STAT 02/23/2025 4:14 PM EDT URINALYSIS W/REFLEX URINE CULTURE STAT 02/23/2025 4:14 PM EDT ECG 12-LEAD STAT 02/23/2025 4:10 PM EDT COVID PANDEMIC RESPIRATORY VIRAL ORDER (PRO) STAT 02/23/2025 4:05 PM EDT from Last 3 Months Results * US ABDOMEN LIMITED RIGHT UPPER QUADRANT (02/23/2025 5:46 PM EDT) Anatomical Region Laterality Modality Abdomen Ultrasound 02/23/2025 6:26 PM EDT Impressions 02/23/2025 6:43 PM EDT Decompressed gallbladder, limiting its evaluation, within this limitation there is no cholelithiasis, or sonographic evidence of acute cholecystitis. ATTESTATION: I, Dr. Efrain Armstrong as teaching physician, have reviewed the images for this case and if necessary edited the report originally created by Ketan Florian. Narrative 02/23/2025 6:43 PM EDT US ABDOMEN LIMITED RIGHT UPPER QUADRANT Referring clinician's provided indication for this examination in Epic: Abnormal LFTs TECHNIQUE: US Abdominal limited right upper quadrant. COMPARISON: None. FINDINGS: Limited study secondary to overlying bowel gas. Liver: No focal lesions. Main Portal Vein: Patent with normal direction of flow. Gallbladder: Decompressed gallbladder, limiting its evaluation. No cholelithiasis. Pettit's Sign: Negative. Biliary: No intrahepatic or extrahepatic biliary ductal dilatation. The common bile duct measures 4 mm. Procedure Note Efrain Fuentes MD - 02/23/2025 US ABDOMEN LIMITED RIGHT UPPER QUADRANT Referring clinician's provided indication for this examination in Epic:Abnormal LFTs TECHNIQUE: US Abdominal limited right upper quadrant. COMPARISON: None. FINDINGS: Limited study secondary to overlying bowel gas. Liver: No focal lesions. Main Portal Vein: Patent with normal direction of flow. Gallbladder: Decompressed gallbladder, limiting its evaluation. Nocholelithiasis. Pettit's Sign: Negative. Biliary: No intrahepatic or extrahepatic biliary ductal dilatation. Thecommon bile duct measures 4 mm. IMPRESSION: Decompressed gallbladder, limiting its evaluation, within this limitationthere is no cholelithiasis, or sonographic evidence of acutecholecystitis. ATTESTATION: I, Dr. Efrain Armstrong as teaching physician, havereviewed the images for this case and if necessary edited the reportoriginally created by Ketan Florian. us Nate Hernandez PA-C IMG US ABDOMEN Final Result * (ABNORMAL) LFTs (hepatic panel) (02/23/2025 4:16 PM EDT) ALKALINE PHOSPHATASE 142(H) 39 - 117 U/L [facility] TOTAL BILIRUBIN 0.5 0.0 - 1.2 mg/dL [facility] DIRECT BILIRUBIN 0.1 0.0 - 0.2 mg/dL [facility] Bilirubin (Indirect) NOT CALCULATED 0 - 1.5 mg/dL [facility] AST 18 0 - 37 U/L [facility] ALT 20 0 - 40 U/L [facility] TOTAL PROTEIN 8.4(H) 6.5 - 8.0 g/dL [facility] ALBUMIN 4.5 3.9 - 4.8 g/dL [facility] GLOBULIN 3.9 1 - 4.8 g/dL [facility] A/G Ratio 1.15 1.00 - 4.80 RATIO [facility] Blood 02/23/2025 4:16 PM EDT 02/23/2025 4:20 PM EDT us eJsús Turpin MD LAB BLOOD ORDERABLES Barbie quigley Result [facility] [address] [place] [address] * CBC and differential (02/23/2025 4:16 PM EDT) WBC 10.67 4.00 - 11.00 K/uL [facility] RBC 4.84 4.00 - 5.20 M/uL [facility] HGB 13.4 12.0 - 16.0 g/dL [facility] HCT 41.5 36.0 - 46.0 % [facility] PLT 355 150 - 450 K/uL [facility] MCV 85.7 80.0 - 100.0 fL [facility] MCH 27.7 27.0 - 31.0 pg [facility] MCHC 32.3 32.0 - 36.0 g/dL [facility] RDW 13.1 11.5 - 14.5 % [facility] MPV 9.1 8.4 - 12.0 fL [facility] NRBC 0.00 0.00 /100 WBCs [facility] ABSOLUTE NRBC 0.00 0.00 K/uL [facility] DIFF METHOD Auto [facility] NEUTS 70.9 48.0 - 76.0 % [facility] LYMPHS 20.2 18.0 - 41.0 % [facility] MONOS 7.2 4.0 - 11.0 % [facility] EOS 0.9 0.0 - 5.0 % [facility] BASOS 0.5 0.0 - 1.5 % [facility] Granulocytes, immature (%) 0.3 0.0 - 0.9 % [facility] ABSOLUTE NEUTS 7.56 1.92 - 7.60 K/uL [facility] ABSOLUTE LYMPHS 2.16 0.72 - 4.10 K/uL [facility] ABSOLUTE MONOS 0.77 0.16 - 1.10 K/uL [facility] ABSOLUTE EOS 0.10 0.00 - 0.50 K/uL [facility] ABSOLUTE BASOS 0.05 0.00 - 0.15 K/uL [facility] Granulocytes, immature 0.03 0.00 - 0.09 K/uL [facility] Blood 02/23/2025 4:16 PM EDT 02/23/2025 4:20 PM EDT us Jesús Turpin MD LAB BLOOD ORDERABLES Barbie quigley Result [address] [address] * Lipase (02/23/2025 4:16 PM EDT) LIPASE 36 16 - 63 U/L [facility] Blood 02/23/2025 4:16 PM EDT 02/23/2025 4:20 PM EDT us Jesús Turpin MD LAB BLOOD ORDERABLES Barbie l Result [address] [address] * Basic metabolic panel (02/23/2025 4:16 PM EDT) SODIUM 138 133 - 146 mmol/L [facility] CHLORIDE 100 96 - 108 mmol/L [facility] POTASSIUM 3.5 3.3 - 5.1 mmol/L [facility] CO2 27 21 - 35 mmol/L [facility] BUN 19 6 - 19 mg/dL [facility] CREATININE 1.00 0.5 - 1.5 mg/dL [facility] GLUCOSE 96 70 - 99 mg/dL [facility] CALCIUM 9.5 8.4 - 10.3 mg/dL [facility] EGFR 66 >59 mL/min/1.7 3m2 [facility] Comment:Estimated glomerular filtration rate calculated using the CKD-EPI refit equation. ANION GAP 15 10 - 20 mmol/L [facility] Blood 02/23/2025 4:16 PM EDT 02/23/2025 4:20 PM EDT us Jesús Turpin MD LAB BLOOD ORDERABLES Barbie l Result [address] [address] * (ABNORMAL) Urinalysis w/reflex Urine Culture (02/23/2025 4:14 PM EDT) COLOR Yellow Yellow [facility] CLARITY Clear [facility] GLUCOSE Negative Negative [facility] BILI Negative Negative [facility] KETONES Negative Negative [facility] SPECIFIC GRAVITY <1.005 1.005 - 1.030 [facility] BLOOD 2+(A) Negative [facility] PH 6.0 5.0 - 8.0 [facility] Protein-UA Negative Negative [facility] NITRITE Negative Negative [facility] Leukocyte esterase, ur Negative Negative [facility] Urine (Urine) 02/23/2025 4: 14 PM EDT 02/23/2025 4:20 PM EDT us Jesús Turpin MD URINE ORDERABLES Final Re sult Performing Organization Address [facility] Co de Phone Number [address] [address] * (ABNORMAL) Urine sediment (02/23/2025 4:14 PM EDT) WBC 0-4(A) NONE SEEN /hpf [facility] RBC 3-5(A) NONE SEEN /hpf [facility] URINE EPITHELIAL 0-4(A) NONE SEEN [facility] MUCUS NONE SEEN NONE SEEN /hpf [facility] BACTERIA NONE SEEN NONE SEEN /hpf [facility] 02/23/2025 4:14 PM EDT 02/23/2025 4:20 PM EDT us Jesús Turpin MD URINE ORDERABLES Final Re sult Performing Organization Address [facility] Co de Phone Number [address] [address] * ECG 12-LEAD (02/23/2025 4:10 PM EDT) Ventricular Rate EKG/MIN 74 BPM [facility] Atrial Rate 74 BPM [facility] [place] Interval 156 ms [facility] QRS Duration 82 ms [facility] QT Interval 394 ms [facility] QTC Interval 437 ms [facility] P Mcalister 54 degrees [facility] R Wave Mcalister 38 degrees [facility] T Wave [place] 33 degrees [facility] 02/23/2025 4:10 PM EDT 02/24/2025 8:10 AM EDT Narrative [facility] - 02/24/2025 8:10 AM EDT Normal sinus rhythm Possible Left atrial enlargement Borderline ECG When compared with ECG of 04-Aug-2023 11:01, T wave inversion now evident in Anterior leads Confirmed by Chilo SOL ([id number]) on 02/24/2025 8:10:00 AM Jesús Turpin MD ECG ORDERABLES Final Res ult Performing Organization Address [facility] Co de Phone Number [email or web address] * COVID Pandemic Respiratory Viral Order (PRO) (02/23/2025 4:05 PM EDT) Test Ordered COVID, Flu has been ordered [facility] Specimen Source/Descriptio n NASOPHARYNGEAL SWAB [facility] Influenza A PCR Not Detected Not Detected [facility] Influenza B PCR Not Detected Not Detected [facility] SARS-CoV 2 (COVID-19) PCR Not Detected Not Detected [facility] Comment: SARS-CoV-2 not detected Negative results do not preclude SARS-CoV-2 infection and should not be used as the sole basis for patient management decisions. Negative results must be combined with clinical observations, patient history, and epidemiological information. Other (Nasopharyngeal swab) 02/23/2025 4:05 PM EDT 02/23/2025 4:20 PM EDT Jesús Turpin MD BODY FLUIDS AND STOOLS OR DERABLES Final Result Performing Organization Address [facility] Co de Phone Number [facility] [address] [place] [address] from Last 3 Months Insurance [facility] Member Subscriber Plan / Payer (Ef fective 2019-Present) Name:Leonor Perez Relation to Subscriber:Self Name:Leonor Perez Payer ID:Not on file Type:O Address: [address] [facility] Address: [address] [place] [address]O Member Subscriber Plan / Payer (Ef fective 2019-Present) Name:Leonor Perez Relation to Subscriber:Self Name:Leonor Perez Neelam Payer ID:Not on file Type:O Address: [address] [employer] Member Subscriber Plan / Payer (Ef fective 2022-Present) Name:Leonor Perez Neelam Relation to Subscriber:Self Name:Sri Perezdawson Richter Payer ID:Not on file Group ID:Not on file Type:Medicaid Address: [place] [id number] [facility] Address: [address] [employer] [facility] Address: [address] [employer] Member Subscriber Plan / Payer ( fective 2022-Present) Name:Leonor Perez Relation to Subscriber:Self Name:Leonor Perez Payer ID:Not on file Group ID:Not on file Type:Medicaid Address: [place] [id number] [facility] Address: [address] [employer] [facility] Address: [address] [employer] [facility] [facility] Address: [address] [employer] [facility] Address: [id number] [place] [address] [employer] Care Teams Director Sales Relationship Specialty Start Date End Date Gisele Patton MD [address] [place] [id number] PCP - General Internal Medicine 02/04/22 Additional Source Comments The information contained in this document represents components of the legal health record. It is not the complete legal health record.[facility]
[2025-04-26 15:23] VITALS: BP 110/70; BMI 22.3
== END 2025-04-26 15:25 | disposition home or self-care (01) ==
LOC: HO.HGS 14:27
PROVIDERS: PCP Internal Medicine; Visit Provider Surgery
DX: L72.0 Epidermal cyst (principal)
CPT/HCPCS: 11401

== ENCOUNTER 2025-04-26 14:26 | Outpatient (REF) | payer OTHER, SELFPAY ==
--- OUTSIDE RECORDS SUMMARY | 2025-04-26 15:52 | XMS_ITS | Clinical Summary ---
Author Organization [employer] Address [address] [facility] [address] [place] [address] Care Team Providers Care Plum Packer Name Role Phone Unavailable Primary Care Provider [...] Vaccine ( - season) 2024 Influenza Vaccine (#1) 2025 5, 08/22/2014, 07/13/2013, Additional history exists RSV [...]
== END 2025-04-26 14:27 | disposition home or self-care (01) ==
LOC: HO.LNP 14:26
PROVIDERS: PCP Internal Medicine; Visit Provider Surgery
DX: L72.3 Sebaceous cyst (principal); Z98.51 Tubal ligation status
CPT/HCPCS: 11401; 88304

== ENCOUNTER 2025-05-26 07:18 | Outpatient (AMB) | payer OTHER, SELFPAY ==
--- OUTSIDE RECORDS SUMMARY | 2024-10-28 08:45 | XMS_ITS | Continuity of Care Document ---
Author Organization [facility] Address [address] [facility] [address] [place] [address] Phone Care Team Providers Care Loom Tuner Name Role Phone Bryant THOMPSON, RVT, CARMEN, [...] Providers Copied on Encounter [facility], [address] [facility] [address] 1000[place], [id number], [place] tel:[phone] CV[place] - [place] - [place] Nevus, non-neoplast ic 5 Bryant THOMPSON, RVT, RPVI Clarke. [address] [place] [address], [place], [place], [id number], [place]. tel:[phone] Referring Provider: Gisele Maloney MD, 2 [facility] , [address] [place] [address] D/B/A: [place], [address]. tel:[phone] Office/Outpt E&M Established 15 Mins- CT & [place] [facility], [address] [place] [address] [facility] 1000[address] 1000[place], [id number], [place] tel:[phone] CVR - [facility] Chronic venous hypertension (idiopathic) with other complication s of right lower extremity 4 [place]. [address] [place] [address], [place], [place], [id number], [place]. tel:[phone] Referring Provider: Gisele Maloney MD, [address] [facility] , [address] [place] [address] D/B/A: [place], [address]. tel:[phone] [facility], [address] [place] [address] Dr Loza 1000[address] 1000[place]za [place], [id number], [place] tel:[phone] CVR - [facility] Chronic venous hypertension (idiopathic) with other complication s of right lower extremity 4 Diana Raya. [address] [facility], [address], [place], [place], [id number], [place]. tel:[phone] Referring Provider: Gisele Maloney MD, [address] [facility] , [address] [place] [address] D/B/A: [place], [address]. tel:[phone] [facility] [address] [facility], [address] [place] [address] Dr Loza 1000[address] 1000[place], [id number], [place] tel:[phone] CVR - [facility] Encounter for follow-up examination after completed treatment for conditions other than malignant neoplasmPain in right leg 4 Bryant THOMPSON RVT, RPVI Robert. [address] [place] [address], [address], [facility] [place], [id number], [place]. tel:[phone] Referring Provider: Gisele Maloney MD, [address] [facility] DrArthur, [address] [place] [address] D/B/[place]: [place], [address]. tel:[phone] [facility], [address] [place] [address] Dr Loza 1000Suite [place], [id number], [place] tel:[phone] [facility] Varicose veins of right lower extremity with other complication s 4 Bryant THOMPSON RVT, CARMEN Mir. [address] [place] [address], Suite [facility], [facility] [place], [id number], [place]. tel:[phone] Referring Provider: Gisele Maloney MD, [address] [place] [address] DrArthur, [address] [place] [address] D/B/[place]: [place], [address]. tel:[phone] [facility], [address] [place] [address] Dr Loza 1000Suite [place] Pain[place], [id number], [place] tel:[phone] [facility] No Information 4 Bryant THOMPSON RVT, RPVI Robert. [address] [place] [address], Suite [facility], [facility] [place], [id number], [place]. tel:[phone] Offic/outpt E&m Estab 5 Min Trial- Telemedicine CT & [place] [facility], [address] [place] [address] Dr Loza [address]Suite [place], [id number], [place] tel:[phone] [facility] Chronic venous hypertension (idiopathic) with other complication s of bilateral lower extremity Jun- 4 Bryant THOMPSON RVT, RPVI Robert. [address] [facility], Suite [facility], [facility] [place], [id number], [place]. tel:[phone] Referring Provider: Gisele Maloney MD, [address] [place] [address] DrArthur, [address] [place] D/B/A: chalo [facility], [place], [address]. tel:[phone] Offic Cons New/estab Mod 40 Mi- CT & [place] [facility], [address] [place] [address] [address], [place], [id number], tel:[phone] CVR - [facility] Chronic venous hypertension (idiopathic) without complication s of bilateral lower extremityRes tless legs syndromeVeno us insufficienc y (chronic) (peripheral) Cramp and spasmLocaliz ed edema Sep-0 4 Bryant THOMPSON, MARIA GUADALUPE, CARMEN Mir. [address] [place] [address], [facility] [place], [id number], . tel:[phone] [facility], [address] [place] [address] [address], [place], [id number], tel:[phone] [facility] - [facility] Pain in right legPain in left leg Sep-0 4 Bryant THOMPSON, MARIA GUADALUPE, CARMEN Mir. [address] [place] [address], [facility] [place], [id number], . tel:[phone] Referring Provider: Clarke Hurtado MD, MARIA GUADALUPE, CARMEN, [address] [place] [address], [address]. tel:[phone] Family History Family Member Type Diagnosis Age [...] No Information Instructions Date Instruction Additional Infor rhonda Lifestyle education Related to B itz mass [...]
--- OUTSIDE RECORDS SUMMARY | 2025-05-26 07:21 | XMS_ITS | Patient Health Record ---
Author Organization [facility] Address [address] [place] [address] Care Team Providers Care Automation Clerk Name Role Phone Gisele Patton Primary Care Provider Mega Warner Jr Unavailable Reason For Referral No Information Medications Medication SIG (Take, Route, Frequency, Duration) Notes Start Date End Date Status DOK Active Problems Problem Type SNOMED Code ICD Code Onset Dates Problem Status W/U Status Risk Notes Problem 350768280 Left lower quadrant pain (R10.32) Active confirmed Problem 955515042 Abdominal bloating (R14.0) Active confirmed Problem 045582170 Right lower quadrant pain (R10.31) Active confirmed Problem 94825884 Abdominal pain, epigastric (R10.13) Active confirmed Problem [id number] Irritable bowel syndrome with constipation (K58.1) Active confirmed Plan Of Treatment Pending Test Test Name Order Date XR GI SMALL BOWEL SERIES 07/25/2016 Future Test Test Name Order Date COLONOSCOPY 01/16/2017 Insurance Providers Payer Name Payer Address Payer Phone Subscriber Number Group Number Insured Name Patient Relationship to Insured Coverage Start Date Coverage End Date [facility] [address] [place] [address] [id number] RICHA RUFFIN Self - patient is the insured MEDICAID OF [facility] [address] [place] [phone] [id number] RICHA RUFFIN Self - patient is the insured Medical (General) History Medical History History ICD Code Denies CO,DM,CVA,Lung disease,renal dise ase urinary incontinence migraine headaches positive PPD, chest x-ray negative Surgical History Surgery Date(Month/Year) carpal tunnel release ovarian surgery
--- OUTSIDE RECORDS SUMMARY | 2025-05-26 07:21 | XMS_ITS | Clinical Summary ---
Author Organization [facility] Address [address] [facility] [address] [place] [address] Phone Care Team Providers Care Supervisor Inspection Room Name Role Phone Gislee Patton MD Primary Care Provid er Allergies [...] 7:28 PM EDT Emergency [facility] [address] [place] [address] Discharge Disposition: Home or Self Care from [...] HEPATITIS C SCREENING 1986 HIV ONE-TIME SCREENING (18-65 YEARS) 1986 PAP SMEAR 1989 SMOKING STATUS SCREENING (Once After 26 Yrs) 1994 MAMMOGRAM 2008 COLOGUARD 2013 COLONOSCOPY 2013 COLORECTAL CANCER SCREENING 2013 FIT TEST 2013 FOBT 2013 SIGMOIDOSCOPY 2013 VIRTUAL COLONOSCOPY 2013 PNEUMOCOCCAL VACCINES (50+ years) (1 of 1 - PCV) 2018 ZOSTER VACCINES (1 of 2) 2018 Adult Td,Tdap Booster 03/08/2023 03/08/2013 INFLUENZA VACCINE (#1) 2025 , 05/30/2020, 2017, Additional history exists COVID-19 VACCINE ( season) 2025 10/10/2021, 02/15/2021, 01/25/2021 HEPATITIS A VACCINES Aged [...] ALKALINE PHOSPHATASE 142(H) 39 - 117 U/L [facility] TOTAL BILIRUBIN 0.5 0.0 - 1.2 mg/dL [facility] DIRECT BILIRUBIN 0.1 0.0 - 0.2 mg/dL [facility] Bilirubin (Indirect) NOT CALCULATED 0 - 1.5 mg/dL [facility] AST 18 0 - 37 U/L [facility] ALT 20 0 - 40 U/L [facility] TOTAL PROTEIN 8.4(H) 6.5 - 8.0 g/dL [facility] ALBUMIN 4.5 3.9 - 4.8 g/dL [facility] GLOBULIN 3.9 1 - 4.8 g/dL [facility] A/G Ratio 1.15 1.00 - 4.80 RATIO [facility] Blood 02/23/2025 4:16 PM EDT 02/23/2025 4:20 PM EDT us Jesús Turpin MD LAB BLOOD ORDERABLES Barbie quigley Result [facility] [address] [place] [address] * CBC and differential (02/23/2025 4:16 PM EDT) WBC 10.67 4.00 - 11.00 K/uL [facility] RBC 4.84 4.00 - 5.20 M/uL [facility] HGB 13.4 12.0 - 16.0 g/dL [facility] HCT 41.5 36.0 - 46.0 % [facility] PLT 355 150 - 450 K/uL [facility] MCV 85.7 80.0 - 100.0 fL [facility] MCH 27.7 27.0 - 31.0 pg [facility] MCHC 32.3 32.0 - 36.0 g/dL [facility] RDW 13.1 11.5 - 14.5 % [facility] MPV 9.1 8.4 - 12.0 fL [facility] NRBC 0.00 0.00 /100 WBCs [facility] ABSOLUTE NRBC 0.00 0.00 K/uL [facility] DIFF METHOD Auto [facility] NEUTS 70.9 48.0 - 76.0 % [facility] LYMPHS 20.2 18.0 - 41.0 % [facility] MONOS 7.2 4.0 - 11.0 % [facility] EOS 0.9 0.0 - 5.0 % [facility] BASOS 0.5 0.0 - 1.5 % [facility] Granulocytes, immature (%) 0.3 0.0 - 0.9 % [facility] ABSOLUTE NEUTS 7.56 1.92 - 7.60 K/uL [facility] ABSOLUTE LYMPHS 2.16 0.72 - 4.10 K/uL [facility] ABSOLUTE MONOS 0.77 0.16 - 1.10 K/uL [facility] ABSOLUTE EOS 0.10 0.00 - 0.50 K/uL [facility] ABSOLUTE BASOS 0.05 0.00 - 0.15 K/uL [facility] Granulocytes, immature 0.03 0.00 - 0.09 K/uL [facility] Blood 02/23/2025 4:16 PM EDT 02/23/2025 4:20 PM EDT us Jesús Turpin MD LAB BLOOD ORDERABLES Barbie l Result [address] [address] * Lipase (02/23/2025 4:16 PM EDT) LIPASE 36 16 - 63 U/L [facility] Blood 02/23/2025 4:16 PM EDT 02/23/2025 4:20 PM EDT us Jesús Turpin MD LAB BLOOD ORDERABLES Barbie l Result Performing Organization Address [facility]/ZIP Co de Phone Number [address] [address] * Basic metabolic panel (02/23/2025 4:16 PM EDT) SODIUM 138 133 - 146 mmol/L [facility] CHLORIDE 100 96 - 108 mmol/L [facility] POTASSIUM 3.5 3.3 - 5.1 mmol/L [facility] CO2 27 21 - 35 mmol/L [facility] BUN 19 6 - 19 mg/dL [facility] CREATININE 1.00 0.5 - 1.5 mg/dL [facility] GLUCOSE 96 70 - 99 mg/dL [facility] CALCIUM 9.5 8.4 - 10.3 mg/dL [facility] EGFR 66 >59 mL/min/1.7 3m2 [facility] Comment:Estimated glomerular filtration rate calculated using the CKD-EPI refit equation. ANION GAP 15 10 - 20 mmol/L [facility] Blood 02/23/2025 4:16 PM EDT 02/23/2025 4:20 PM EDT Jesús Turpin MD LAB BLOOD ORDERABLES Barbie l Result Performing Organization Address City/[facility]/ZIP Co de Phone Number [address] [address] * (ABNORMAL) Urinalysis w/reflex Urine Culture (02/23/2025 4:14 PM EDT) COLOR Yellow Yellow [facility] CLARITY Clear [facility] GLUCOSE Negative Negative [facility] BILI Negative Negative [facility] KETONES Negative Negative [facility] SPECIFIC GRAVITY <1.005 1.005 - 1.030 [facility] BLOOD 2+(A) Negative [facility] PH 6.0 5.0 - 8.0 [facility] Protein-UA Negative Negative [facility] NITRITE Negative Negative [facility] Leukocyte esterase, ur Negative Negative [facility] Urine (Urine) 02/23/2025 4:1 4 PM EDT 02/23/2025 4:20 PM EDT us Jesús Turpin MD URINE ORDERABLES Final Re sult Performing Organization Address [facility] de Phone Number [address] [address] * (ABNORMAL) Urine sediment (02/23/2025 4:14 PM EDT) WBC 0-4(A) NONE SEEN /hpf [facility] RBC 3-5(A) NONE SEEN /hpf [facility] URINE EPITHELIAL 0-4(A) NONE SEEN [facility] MUCUS NONE SEEN NONE SEEN /hpf [facility] BACTERIA NONE SEEN NONE SEEN /hpf [facility] 02/23/2025 4:14 PM EDT 02/23/2025 4:20 PM EDT us Jesús Turpin MD URINE ORDERABLES Final Re sult Performing Organization Address [facility] Co de Phone Number [address] [address] * ECG 12-LEAD (02/23/2025 4:10 PM EDT) Ventricular Rate EKG/MIN 74 BPM [facility] Atrial Rate 74 BPM [facility] ND Interval 156 ms [facility] QRS Duration 82 ms [facility] QT Interval 394 ms [facility] QTC Interval 437 ms [facility] P Vanderbilt 54 degrees [facility] R Wave Vanderbilt 38 degrees [facility] T Wave Vanderbilt 33 degrees [facility] 02/23/2025 4:10 PM EDT 02/24/2025 8:10 AM EDT Narrative [facility] - 02/24/2025 8:10 AM EDT Normal sinus rhythm Possible Left atrial enlargement Borderline ECG When compared with ECG of 04-Aug-2023 11:01, T wave inversion now evident in Anterior leads Confirmed by Chilo SOL ([id number]) on 02/24/2025 8:10:00 AM us Jesús Turpin MD ECG ORDERABLES Final Res ult [facility] * COVID Pandemic Respiratory Viral Order (PRO) (02/23/2025 4:05 PM EDT) Test Ordered COVID, Flu has been ordered [facility] Specimen Source/Descriptio n NASOPHARYNGEAL SWAB [facility] Influenza A PCR Not Detected Not Detected [facility] Influenza B PCR Not Detected Not Detected [facility] SARS-CoV 2 (COVID-19) PCR Not Detected Not Detected [facility] Comment: SARS-CoV-2 not detected Negative results do not preclude SARS-CoV-2 infection and should not be used as the sole basis for patient management decisions. Negative results must be combined with clinical observations, patient history, and epidemiological information. Other (Nasopharyngeal swab) 02/23/2025 4:05 PM EDT 02/23/2025 4:20 PM EDT us Jesús Turpin MD BODY FLUIDS AND STOOLS OR DERABLES Final Result Performing Organization Address City/[facility]/ZIP Co de Phone Number [facility] [address] [place] [address] from Last 3 Months Insurance [facility] Address: [address] [address] [facility] [employer] [facility] Address: [place] [id number] [facility] NET PARTIAL Member Subscriber Plan / Payer (Ef fective 2019-) Name:Leonor Perez Relation to Subscriber:Self Name:Leonor Perez Payer ID:Not on file Type:O Address: [address] SAFETY [facility] [employer] [facility] Address: [address] NET PARTIAL Member Subscriber Plan / Payer (Ef fective 2019-) Name:Leonor Perez Relation to Subscriber:Self Name:Leonor Perez Payer ID:Not on file Type:O Address: [address] [employer]AFET[employer] NET PARTIAL Member Subscriber Plan / Payer (Ef fective 2019-Present) Name:Leonor Perez Relation to Subscriber:Self Name:Leonor Perez Payer ID:Not on file Type:O Address: [address] NET PARTIAL Member Subscriber Plan / Payer (Ef fective 2019-Present) Name:Leonor Perez Relation to Subscriber:Self Name:Leonor Perez Payer ID:Not on file Type:O Address: [address] [employer] [facility] Address: [address] PARTIAL [facility] NET PARTIAL Care Teams Supervisor Inspection Room Relationship Specialty Start Date End Date Gisele Patton MD [address] [place] [address] PCP - General Internal Medicine 02/04/22 Additional Source Comments The information contained in this document represents components of the legal health record. It is not the complete legal health record.[facility]
--- OUTSIDE RECORDS SUMMARY | 2025-05-26 07:21 | XMS_ITS | Clinical Summary ---
Author Organization [employer] Address [address] [facility] [address] [place] [address] Care Team Providers Care Gear Roller Name Role Phone Unavailable Primary Care Provider [...] 03/08/2023 03/08/2013 COVID-19 Vaccine ( - season) 2025 Influenza Vaccine (#1) 2025 5, 08/22/2014, 07/13/2013, [...]
--- OUTSIDE RECORDS SUMMARY | 2025-05-26 07:21 | XMS_ITS | Encounter Summary ---
Author Organization [facility] Address [address] [facility] [address] [place] [address] Care Team Providers Care Band Splicer Name Role Phone Unavailable Primary Care Provider Unavailabl e Encounter Details Date Type Department Care Team (Latest Contact Info) Description 09/12/2021 Abstract [facility] CONVERSIONS Dental, Provider, DDS Social History [...]
--- NOTE | 2025-05-26 07:24 | A.OFFVIS_ITS ---
Vital Signs 05/26/25 07:35 Height 5 ft 3 in Weight 124 lb BMI 22.0 BP 93/48 L Blood Pressure Location Lt brachial Position Sitting Pulse 64 Pulse Oximetry (%) 98 Oxygen Delivery Method Room Air Intake Visit Reasons: 2 month Intake Note: Patient 2 month follow up for Chronic GERD Patient cc: a lot of burping in the morning, GERD, denies any other GI issues. Auto Claim Representative Required: Yes Auto Claim Representative Name: Antonio Crenshaw Accompanied by: Self / Same As Patient Allergies No Known Allergies Allergy (Unknown, Verified 05/26/25 07:21) NOT APPLICABLE Medication List - Last Reconciled 05/26/25 by Jaylon Guevara MD cetirizine (All Day Allergy (cetirizine)) 10 mg PO DAILY PRN 90 days lactulose 20 grams (30 mL) PO BID 30 days omeprazole 20 mg PO BID 60 days sennosides-docusate sodium 8.6-50 mg (Senna with Docusate Sodium) 1 tab-cap PO BEDTIME sumatriptan succinate 25 mg PO Q2-4H PRN 30 days HPI HPI 2 month: Details: GI clinic visit for this 54 Sinhala speaking female for follow-up after EGD and colonoscopy TODAY'S VISIT: Video vascular nurse Patient cc: a lot of burping in the morning, GERD, denies any other GI issues. Medication has been helping Complains of increased burping in the morning after she has breakfast - sometimes after lunch and dinner Takes a mix of banana, milk and quinoa (uses 2% Lactaid milk) - burping starts right away. Constipation is better with medication - has a BM once daily in the am Taking Senna and lactulose and Lubiprostone was not approved by her insurance PAST VISITS: my constipation is terrible Took dulcolax which helped. Every time I eat, I get a lot of gas and it hurts. Seen at 2 months ago with abd pain Had labs, urine test and an US and was told everything was fine She was also having migraine CAR which was treated. Has a BM every day and can be associated with intermittent straining Taking Senna every night - sometimes takes 2. Taking Omeprazole and has not been helping. She was prescribed Pantoprazole since pt states there was no dose Has a BM daily Taking Omeprazole and states its not helping Notes excessive gas after eating Patient cc: abdominal discomfort, acid reflex with a lot of gasses, after Colonoscopy she is been with constipation. Complains of constipation, gas and bloating since she had her colonoscopy. Complains of a long hx of constipation - worse since her colon Has a BM once a day in the am with passage of hard stools. Takes 2 fibre gummies daily which has helped. Patient complains of mild heartburn and denies dysphagia, nausea, vomiting, change in appetite or weight. Denies recent diarrhea, black stools or rectal bleeding. Patient denies smoking or ETOH abuse, major cardiac or pulmonary problems, loud snoring or sleep apnea Denies problems with anesthesia in the past. Denies being on chronic anticoagulation. Patient denies known family history of colon polyps, colon cancer. Dad with stomach cancer at age 68 yrs LABS IN [place] : Reviewed IMAGING STUDIES: 05/2024 UGI SHOWED: 1. Small type I hiatal hernia. 2. Significant gastroesophageal reflux. 3. Thickened appearance of the areae gastricae. In addition there are multiple foci of contrast pooling in the fundus the stomach. These findings are suggestive of erosive gastritis. Recommend correlation of EGD. ENDOSCOPIC STUDIES: 10/15/24 EGD AND COLON SHOWED: Endoscopy Findings: ESOPHAGUS: A single 0.5 cms healing erosion ar GE junction. No Almazan's. STOMACH: Diffuse gastritis and superficial chronic appearing erosions DUODENUM: Normal - biopsied to check for celiac sprue Colonoscopy Findings: Two small to medium sized polyps were removed Moderate diverticulosis seen in the left colon Moderate hemorrhoids on retroflexed exam. Plan: Repeat Colonoscopy in 3-5 years if polyps are adenomatous and 10 year if polyps are hyperplastic. Above findings were reviewed with the patient and relevant handouts were given and the discharge area. BIOPSIES SHOWED: A. Small bowel, biopsy: Small bowel/duodenal mucosa with preserved villi and no specific change; no evidence of celiac disease. B. Gastric antrum, biopsy: Gastric antral mucosa with minimal chronic inactive gastritis; negative for intestinal metaplasia and dysplasia. C. Gastric body, biopsy: Gastric body mucosa with focal minimal chronic inactive inflammation; negative for intestinal metaplasia and dysplasia. D. Colon, transverse, polyps: Tubular adenomas (2 pieces); negative for high- grade dysplasia and carcinoma. Comment: (B and C): Immunostains for H. pylori were negative Letter sent with biopsy results Patient placed on the colonoscopy recall list for repeat colonoscopy in 3 years. PAST GI HISTORY BY REVIEW OF MEDICAL RECORDS: 11/2023 PT WAS SEEN BY JOAQUÍN Hernandez PA: 53 y/o female last seen 05/2022- RLQ everyday when she wakes up-she has not know if it is due to her bowels. BM QD-typically normal Review of record shows Last colonoscopy 2016 Dr. Miller no polyps everything she eats makes her burp-reviewed diet- Review record shows history of H pylori treated negative test of cure She has no nausea, vomiting hematemesis, hematochezia fever or chills PFSH Medical History (Updated 05/26/25 @ 07:27 by Jaylon Guevara MD) Lump in armpit Allergic rhinitis Hypovitaminosis D Urticaria Hand numbness Family history of diabetes mellitus Abscess of axilla, left Overactive bladder Hospital discharge follow-up Incontinence Recurrent UTI Chronic constipation RUQ abdominal pain Constipation Hypovitaminosis D Irregular menses Urinary incontinence GERD (gastroesophageal reflux disease) Migraine headache with aura History of positive PPD Surgical History (Updated 05/26/25 @ 07:26 by Rafaela Ouzna) Hx of removal of cyst History of esophagogastroduodenoscopy (EGD) Hx of colonoscopy S/P tendon repair History of dilation and curettage History of removal of ovarian cyst History of tubal ligation Family History Father Stomach cancer Mother Heart disease Arthritis Elevated cholesterol Diabetes Hypertension Brother No problems noted. Brother No problems noted. Sister No problems noted. Sister No problems noted. Sister No problems noted. Sister No problems noted. Son No problems noted. Son No problems noted. Son No problems noted. 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 Current occupational exposures/hazards: No Cognitive needs: No Hearing needs: No Vision needs: Yes Female Reproductive History Menstrual Age of Menarche: 12 Review of Systems Const All systems reviewed & are unremarkable except as noted in HPI and below Physical Exam Vital Signs: Last Vital Signs Pulse 64 05/26/25 07:35 BP 93/48 L 05/26/25 07:35 Pulse Ox 98 05/26/25 07:35 Oxygen Delivery Method Room Air 05/26/25 07:35 BMI result Body Mass Index 22.0 Const General: healthy appearing and no acute distress Nutritional Appearance: average body habitus Orientation/consciousness: patient oriented x3 Limitations: language barrier HEENT Head: Yes normal to inspection Ears: hearing grossly normal bilaterally Eyes Sclerae: sclerae normal Pupils: Equal, round and reactive pupils present Neck Neck: Yes normal visual inspection Chest Chest palpation & inspection: normal inspection of the chest Resp Effort & Inspection: normal respiratory effort Auscultation: clear to auscultation bilaterally Cardio Palpation: normal PMI Rate: regular rate Rhythm: regular rhythm Heart sounds: S1 normal heart sound present, S2 normal heart sound present and no murmurs GI Palpation (GI): Soft to palpation, nontender and No hepatosplenomegaly present Auscultation: normal bowel sounds Rectal Exam - Female: deferred Skin General skin exam: no rashes or lesions noted Neuro General: patient oriented x3, gait normal and moves all extremities Cranial nerves: Yes Equal, round and reactive pupils present Psych Appearance: grossly normal Mental Status: mental status grossly normal Assessment & Plan Assessment & Plan (1) Chronic GERD: Code(s): K21.9 - Gastro-esophageal reflux disease without esophagitis Category: Medical (2) Elevated liver enzymes: Comment: Encouraged patient to get follow-up blood work to further assess elevated liver enzymes. She will continue bowel regimen for constipation patient requested slurry plant operator 15 minutes into phone call. Will call her back when slurry plant operator available. patient called back completed visit Code(s): R74.8 - Abnormal levels of other serum enzymes Category: Medical (3) Chronic constipation: Comment: 51year-old female chronic constipation when following bowel regimen, stool softener high-fiber diet,- Gas, will use Gas-X good response in the past. continue High-fiber/FODMAP- Reviewed a previous colonoscopy 2017 discussed repeat-she will consider symptoms recur Code(s): K59.09 - Other constipation Category: Medical (4) Abdominal pain: Comment: Chronic- Intermittent -GI versus police reserves commander Maybe function-sees police reserves commander EGD colonoscopy, discussed procedures, rare risks need for escorted due to anesthesia Code(s): R10.9 - Unspecified abdominal pain Category: Medical Plan 54 year old Sinhala-speaking female with migraine headaches and hypercholesterolemia seen for follow-up of elevated LFTs, GERD and chronic constipation Pt complains of postprandial epigastric pain and abdominal bloating. Hepatitis serologies were negative - immunity to hepatitis A and B. BALTAZAR, smooth muscle antibody and antimitochondrial antibody were negative. Iron studies, alpha 1 anti-trypsin and celiac serologies were normal. Abdominal ultrasound showed a tiny gallbladder polyp. Repeat LFTs showed normal transaminases and mild elevation of alkaline phosphatase - continue to follow. 03/17/25 Pt was advised to increase omeprazole to 20 mg twice daily Continue taking senna at bedtime. Start lubiprostone 8 mcg twice daily (if approved by her insurance) 05/26/25 Burping ? related to lactulose Advised to switch to almond or coconut milk Start Probiotics once daily Follow-up in 3 months - scheduled 09/02/25 Coding Level of Care Code Est Pt Level 4 (90078) Diagnoses Chronic GERD K21.9 Elevated liver enzymes R74.8 Chronic constipation K59.09 Abdominal pain R10.9 Time Spent (min) 19
[2025-05-26 07:35] VITALS: BP 93/48; PULSE 64; O2SAT 98; BMI 22.0
== END 2025-05-26 07:57 | disposition home or self-care (01) ==
LOC: HO.HGI 07:19
PROVIDERS: PCP Internal Medicine; Visit Provider Internal Medicine Gastroenterology
DX: K21.9 Gastro-esophageal reflux disease without esophagitis (principal); R74.8 Abnormal levels of other serum enzymes; K59.09 Other constipation; R10.9 Unspecified abdominal pain
CPT/HCPCS: 99214

== ENCOUNTER 2025-06-14 12:52 | Outpatient (AMB) | payer OTHER, SELFPAY ==
--- NOTE | 2025-06-14 12:54 | A.OFFVIS_ITS ---
Vital Signs 06/14/25 13:01 Height 5 ft 3 in Weight 127 lb BMI 22.5 BP 131/60 Blood Pressure Location Lt radial Position Sitting Pulse 99 Intake Visit Reasons: Pain at left axilla excision site Intake Note: Patient scheduled today's appointment concerned with excision on left axilla. Patient c/o: sore mass noticed posterior part of incision. Tenderness, sharp pain for the past 2d. WLE: 04-26-2025 C Winforms Developer Required: Yes Information Interpreted: clinical only (Carlita OLSEN) Accompanied by: Self / Same As Patient Allergies No Known Allergies Allergy (Unknown, Verified 06/14/25 13:00) NOT APPLICABLE HPI HPI Pain at left axilla excision site: Details: In-house bun machine operator services used for this evaluation, MANJU Shin. Patient reports that about 2 days ago she began having pain in both of her armpits. States he is it is actually more in the middle of the armpit rather than at the excision site. She also feels a lump in both of them. She denies any injury to the site. She does feel warm today and was unable to work because she feels uncomfortable. [facility] Medical History (Updated 06/14/25 @ 13:22 by Christ Lew PA-C) Lump in armpit Allergic rhinitis Hypovitaminosis D Urticaria Hand numbness Family history of diabetes mellitus Abscess of axilla, left Overactive bladder Hospital discharge follow-up Incontinence Recurrent UTI Chronic constipation RUQ abdominal pain Constipation Hypovitaminosis D Irregular menses Urinary incontinence GERD (gastroesophageal reflux disease) Migraine headache with aura History of positive PPD Surgical History (Updated 06/14/25 @ 13:22 by Christ Lew PA-C) Hx of removal of cyst History of esophagogastroduodenoscopy (EGD) Hx of colonoscopy S/P tendon repair History of dilation and curettage History of removal of ovarian cyst History of tubal ligation Family History Father Stomach cancer Mother Heart disease Arthritis Elevated cholesterol Diabetes Hypertension Brother No problems noted. Brother No problems noted. Sister No problems noted. Sister No problems noted. Sister No problems noted. Sister No problems noted. Son No problems noted. Son No problems noted. Son No problems noted. 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 Current occupational exposures/hazards: No Cognitive needs: No Hearing needs: No Vision needs: Yes Female Reproductive History Menstrual Age of Menarche: 12 Physical Exam Vital Signs: Last Vital Signs Pulse 99 06/14/25 13:01 BP 131/60 06/14/25 13:01 BMI result Body Mass Index 22.5 Const General: no acute distress and other (Tearful); No comfortable Orientation/consciousness: patient oriented x3 Neuro General: patient oriented x3 Extrem Other: Mild lymphadenopathy of bilateral axilla, painful Left axilla excision site appears to be healing well no surrounding erythema, no drainage no obvious or palpable fluid collection. Incision site intact Assessment & Plan Assessment & Plan (1) Lymphadenopathy, axillary: Comment: Bilateral Code(s): R59.0 - Localized enlarged lymph nodes Category: Medical (2) History of epidermal inclusion cyst excision: Code(s): Z98.890 - Other specified postprocedural states; Z87.2 - Personal history of diseases of the skin and subcutaneous tissue Category: Medical Plan 54-year-old female s/p excision of epidermal inclusion cyst of the left axilla on 04/26/2025 returning to the office due to pain in bilateral axilla for the past 2 days. She also feels a lump in both of the axilla. She did report feeling feverish at work this morning so went home because she was not feeling well. There has been no drainage from the area, no redness. On the exam the incision site actually appears to be healing well, remains closed, no surrounding erythema no obvious fluid collection and drainage. I was able to palpate some mild lymphadenopathy in both axilla that was tender to palpation, this was actually worse in the right axilla which is the contralateral side to the excision site. I checked her temperature in the office which was 100.3. At this point given the length of time from the procedure I do not think this is related. It is likely she has some sort of viral illness that is causing this. I reassured her that this is not infection due to the procedure and that this should get better with time. I recommended that if this is persisting as she should see her primary care regarding this. She can follow up as needed if there are any other changes to the incision site. We discussed the surgical pathology, ruptured epidermal inclusion cyst. Patient was given a copy of these results. Coding Level of Care Code Est Pt Level 3 (65001) Diagnoses Lymphadenopathy, axillary R59.0 History of epidermal inclusion cyst excision Z98.890; Z87.2
[2025-06-14 13:01] VITALS: BP 131/60; PULSE 99; BMI 22.5
--- OUTSIDE RECORDS SUMMARY | 2025-06-14 15:45 | XMS_ITS | Clinical Summary ---
Author Organization [facility] Address [address] [place] [id number] Phone Care Team Providers Care Drug Counselor Name Role Phone Gisele Patton MD Primary [...] hours as needed. 100 mL 3 Active Social History Tobacco Use Types Packs/Day Years [...] 05/30/2020, 2017, Additional history exists COVID-19 VACCINE (2024- season) 2025 10/10/2021, 02/15/2021, 01/25/2021 HEPATITIS A [...] this topic Medical Devices Not on file Insurance [facility] HMO [facility] [place] Address: [address] [facility] Member Subscriber Plan / Payer (Ef fective 2019-Present) Name:Chris Leonor M Relation to Subscriber:Self Name:Leonor Perez Payer ID:Not on file Type:HMO Address: [address] NET PARTIAL [facility] [place] [facility] [place] Address: [address] [facility] Member Subscriber Plan / Payer (Ef fective 2019-Present) Name:Leonor Perez Relation to Subscriber:Self Name:Leonor Perez Payer ID:Not on file Type:HMO Address: [address] NET PARTIAL [facility] HMO Member Subscriber Plan / Payer (Ef fective 2019-Present) Name:Leonor Perez Relation to Subscriber:Self Name:Leonor Perez Payer ID:Not on file Type:O Address: [address] [facility] Member Subscriber Plan / Payer (Ef fective 2019-Present) Name:Leonor Perez Relation to Subscriber:Self Name:Leonor Perez Payer ID:Not on file Type:HMO Address: [address] NET PARTIAL [facility] HMO Member Subscriber Plan / Payer (Ef fective 2019-Present) Name:Leonor Perez Relation to Subscriber:Self Name:Leonor Perez Payer ID:Not on file Type:O Address: [address] NET PARTIAL [facility] HMO Member Subscriber Plan / Payer (Ef fective 2019-Present) Name:Leonor Perez Relation to Subscriber:Self Name:Leonor Perez Payer ID:Not on file Type:HMO Address: [address] NET PARTIAL Care Teams Drug Counselor Relationship Specialty Start Date End Date Gisele Patton MD [address] [place] [address] PCP - General Internal Medicine 02/04/22 Additional Source Comments The information contained in this document represents components of the legal health record. It is not the complete legal health record.[facility]
--- OUTSIDE RECORDS SUMMARY | 2025-06-14 15:45 | XMS_ITS | Encounter Summary ---
Author Organization [employer] Address [address] [facility] 7 [place] [address] Care Team Providers Care Manager Universal Name Role Phone Unavailable Primary Care Provider Unavailabl e Encounter Details Date Type Department Care Team (Latest Contact Info) Description 09/12/2021 Abstract [facility] CONVERSIONS Dental, Provider, DDS Social History [...]
--- OUTSIDE RECORDS SUMMARY | 2025-06-14 15:45 | XMS_ITS | Clinical Summary ---
Author Organization [employer] Address [address] [facility] [address] [place] [address] Care Team Providers Care Outpatient Psychiatrist Name Role Phone Unavailable Primary Care Provider [...]
--- OUTSIDE RECORDS SUMMARY | 2025-06-14 15:45 | XMS_ITS | Patient Health Record ---
Author Organization [facility] Address [address] [place] [address] Care Team Providers Care Manager Community Name Role Phone Gisele Patton Primary Care Provider Mega Warner Jr Unavailable Reason For Referral No Information Medications Medication SIG (Take, Route, Frequency, Duration) Notes Start Date End Date Status DOK Active Problems Problem Type SNOMED Code ICD Code Onset Dates Problem Status W/U Status Risk Notes Problem 894808250 Left lower quadrant pain (R10.32) Active confirmed Problem [id number] Abdominal bloating (R14.0) Active confirmed Problem [id number] Right lower quadrant pain (R10.31) Active confirmed Problem 38202450 Abdominal pain, epigastric (R10.13) Active confirmed Problem [id number] Irritable bowel syndrome with constipation (K58.1) Active confirmed Plan Of Treatment Pending Test Test Name Order Date XR GI SMALL BOWEL SERIES 07/25/2016 Future Test Test Name Order Date COLONOSCOPY 01/16/2017 Insurance Providers Payer Name Payer Address Payer Phone Subscriber Number Group Number Insured Name Patient Relationship to Insured Coverage Start Date Coverage End Date [facility] [address] [place] [phone] [id number] RICHA RUFFIN Self - patient is the insured MEDICAID OF [facility] [address] [place] [phone] [id number] RICHA RUFFIN Self - patient is the insured Medical (General) History Medical History History ICD Code Denies DE,DM,CVA,Lung disease,renal dise ase urinary incontinence migraine headaches positive PPD, chest x-ray negative Surgical History Surgery Date(Month/Year) carpal tunnel release ovarian surgery
== END 2025-06-14 13:15 | disposition home or self-care (01) ==
LOC: HO.HGS 12:53
PROVIDERS: PCP Internal Medicine
DX: R59.0 Localized enlarged lymph nodes (principal); Z98.890 Other specified postprocedural states; Z87.2 Personal history of diseases of the skin and subcutaneous tissue
CPT/HCPCS: 99213

== ENCOUNTER 2025-06-15 09:15 | Outpatient (AMB) | payer OTHER, SELFPAY ==
[2025-06-15 09:36] VITALS: BP 120/62; PULSE 88; TEMP 39; O2SAT 99; BMI 22.3
--- NOTE | 2025-06-15 09:36 | MHC.PC.OV ---
Vital Signs 06/15/25 09:36 Height 5 ft 3 in Weight 126 lb 2 oz BMI 22.3 BP 120/62 Blood Pressure Location Lt brachial Position Sitting Pulse 88 Pulse Source Pulse Oximeter Temp 102.2 F H Temp Source Oral Pulse Oximetry (%) 99 Oxygen Delivery Method Room Air Intake Visit Reasons: feels lump on both arm pits Central Supply Technician Supervisor Required: No Accompanied by: Self / Same As Patient Allergies No Known Allergies Allergy (Unknown, Verified 06/15/25 09:37) NOT APPLICABLE Medication List - Last Reconciled 06/15/25 by Bala Flores MD cetirizine (All Day Allergy (cetirizine)) 10 mg PO DAILY PRN 90 days lactulose 20 grams (30 mL) PO BID 30 days omeprazole 20 mg PO BID 60 days sennosides-docusate sodium 8.6-50 mg (Senna with Docusate Sodium) 1 tab-cap PO BEDTIME sumatriptan succinate 25 mg PO Q2-4H PRN 30 days Tobacco use date assessed: 06/15/25 Dental Screening Dental Screen Date: 06/15/25 Did you have a dental visit in the last 12 months?: Yes Did you have a dental problem in the last 6 months where you did not have access to dental care?: No Was dental information given to patient?: Patient has dentist HPI HPI Comments History of Present Illness Details The patient is a 54-year-old female presenting with eye pain, fever, sore throat, and axillary pain. The sore throat and fever began on Friday, accompanied by axillary pain that was not present before. The patient denies any previous history of similar symptoms. The axillary lumps were first noticed on Friday and have not been previously experienced by the patient. There is no history of drainage or intervention for these lumps, although a similar issue was noted in November without intervention. The patient reports no current medication allergies and has not been on antibiotics recently. Rapid strep test in clinic was positive. VS significant for fever of 102.3. Other vitals were within normal limits. She reports cold intolerance, muscle pain, fever, chills, decreased appetite. [facility] Medical History (Updated 06/15/25 @ 10:13 by Bala Flores MD) Lump in armpit Allergic rhinitis Hypovitaminosis D Urticaria Hand numbness Family history of diabetes mellitus Abscess of axilla, left Overactive bladder Hospital discharge follow-up Incontinence Recurrent UTI Chronic constipation RUQ abdominal pain Constipation Hypovitaminosis D Irregular menses Urinary incontinence GERD (gastroesophageal reflux disease) Migraine headache with aura History of positive PPD Surgical History Hx of removal of cyst History of esophagogastroduodenoscopy (EGD) Hx of colonoscopy S/P tendon repair History of dilation and curettage History of removal of ovarian cyst History of tubal ligation Family History Father Stomach cancer Mother Heart disease Arthritis Elevated cholesterol Diabetes Hypertension Brother No problems noted. Brother No problems noted. Sister No problems noted. Sister No problems noted. Sister No problems noted. Sister No problems noted. Son No problems noted. Son No problems noted. Son No problems noted. 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 1. Little interest or pleasure in doing things: several days Source: Developed by Drs. Clarke Loomis, Porsche Del Rio, Trent Roberts and colleagues, with an educational whitney from [employer]. Thrive Questionnaire Date Thrive assessed: 11/26/24 AUDIT C Alcohol Use Questionnaire (AUDIT-C) 1. How often do you have a drink containing alcohol?: Never 3. How often do you have six or more drinks on one occasion?: Never Total Score: 0 MONI-7 AMB Questionnaire MONI-7 Date MONI - 7 assessed: 11/26/24 Source: Developed by Drs. Clarke Loomis, Porsche Del Rio, Trent Roberts and colleagues, with an educational whitney from [employer]. Review of Systems Const Details: Positives besides what was mentioned in HPI are in BOLD Constitutional: No Weight Change, No Fever, No Chills, No Night Sweats, No Fatigue, No Malaise ENT/Mouth: No Hearing Changes, No Ear Pain, No Nasal Congestion, No Sinus Pain, No Hoarseness, No sore throat, No Rhinorrhea, No Swallowing Difficulty Eyes: No Eye Pain, No Swelling, No Redness, No Foreign Body, No Discharge, No Vision Changes Cardiovascular: No Chest Pain, No SOB, No PND, No Dyspnea on Exertion, No Orthopnea, No Claudication, No Edema, No Palpitations Respiratory: No Cough, No Sputum, No Wheezing, No Smoke Exposure, No Dyspnea Gastrointestinal: No Nausea, No Vomiting, No Diarrhea, No Constipation, No Pain, No Heartburn, No Anorexia, No Dysphagia, No Hematochezia, No Melena, No Flatulence, No Jaundice Genitourinary: No Dysmenorrhea, No DUB, No Dyspareunia, No Dysuria, No Urinary Frequency, No Hematuria, No Urinary Incontinence, No Urgency, No Flank Pain, No Urinary Flow Changes, No Hesitancy Musculoskeletal: No Arthralgias, No Myalgias, No Joint Swelling, No Joint Stiffness, No Back Pain, No Neck Pain, No Injury History Skin: No Skin Lesions, No Pruritis, No Hair Changes, No Breast/Skin Changes, No Nipple Discharge Neuro: No Weakness, No Numbness, No Paresthesias, No Loss of Consciousness, No Syncope, No Dizziness, No Headache, No Coordination Changes, No Recent Falls Psych: No Anxiety/Panic, No Depression, No Insomnia, No Personality Changes, No Delusions, No Rumination, No SI/HI/AH/VH, No Social Issues, No Memory Changes, No Violence/Abuse Hx., No Eating Concerns Heme/Lymph: No Bruising, No Bleeding, No Transfusions History, No Lymphadenopathy Endocrine: No Polyuria, No Polydipsia, No Temperature Intolerance Physical exam (Primary Care) Vital Signs: Last Vital Signs Temp 102.2 F H 06/15/25 09:36 Pulse 88 06/15/25 09:36 BP 120/62 06/15/25 09:36 Pulse Ox 99 06/15/25 09:36 Oxygen Delivery Method Room Air 06/15/25 09:36 BMI result Body Mass Index 22.3 Tobacco/Smoking Status: Tobacco use Status Tobacco use date assessed 06/15/25 06/15/25 09:51 Patient Tobacco Use Status Never used Tobacco 06/15/25 09:51 e-Cigarette/Vaping Use Never Used 06/15/25 09:51 Thrive Assessment: Date of Thrive Assessment Date Thrive assessed 11/26/24 06/15/25 09:51 Const Other: Pertinent findings are in BOLD GENERAL APPEARANCE NAD, activity normal for age, well developed/ well nourished, no cyanosis, pallor, or diaphoresis. EYES lids/conjunctiva normal. EARS/NOSE/THROAT Mucous membranes moist, nares normal, lips/teeth normal uvula midline without oral pharyngeal erythema, exudate or swelling TMs normal bilaterally. No lymphangitis/lymphedema. HEAD/NECK normocephalic atraumatic, no facial trauma, neck is supple. Enlarged LN in neck. RESPIRATORY respiratory effort normal, speaks in full sentences, no tripod position, no accessory muscle use. Lungs clear to auscultation without rhonchi, wheezes, rales CARDIAC Regular rate and rhythm, no edema. ABDOMINAL Soft, ND/NT. No evidence of fluid wave. No pulsatile masses on exam, rebound tenderness, Pettit sign or pain over Mcburney's point. MUSCLES/EXTREMITIES No abnormal range of motion, no swelling. SKIN Warm, pink and dry. No rashes, dermatoses, petechiae or lesions. armpit: no lesion. No abcess. tender to palpation. NEUROLOGICAL Speech is clear and appropriate. Normal level of consciousness. Gait and coordination are normal. 5/5 strength in all extremities. PSYCH Normal mood and affect. Judgement/competence is appropriate Results AMB Rapid Strep AMB Rapid Strep Positive Last Edit by PRETTY Mckinley on 06/15/25 10:10 Results Reviewed Results Reviewed: Laboratory Last Values Strep Scn Rapid Clinic Positive 06/15/25 10:09 Coding Level of Care Code Est Pt Level 4 (32905) Diagnoses Strep throat J02.0 Armpit pain M79.629 Flu-like symptoms R68.89 Time Spent (min) 30 Assessment & Plan Assessment & Plan (1) Strep throat: Code(s): J02.0 - Streptococcal pharyngitis Category: Medical Plan: Amoxicillin 875 mg BID for 10 days. Advised paitent to wear mask around family and friends. (2) Armpit pain: Code(s): M79.629 - Pain in unspecified upper arm Category: Medical Plan: No abcess. No visible lesions. Might be reactive LN 2/2 strep throat although location is not typical. F-U in 3 weeks to assess for improvement. (3) Flu-like symptoms: Code(s): R68.89 - Other general symptoms and signs Category: Medical Plan I discussed with the patient that the streptococcal infection is likely causing the sore throat and fever, and the axillary lumps may be related to this infection. I explained the treatment plan, including antibiotics and emphasized the importance of completing the full course of antibiotics. I advised the patient to follow up in three weeks if symptoms do not improve and to maintain distance from family members as the infection is mildly contagious. Orders: Orders AMB Rapid Strep Screen Today Z13.9 - Encounter for screening, unspecified Medications: New amoxicillin 875 mg PO BID 20 tabs 0RF 10 days
--- OUTSIDE RECORDS SUMMARY | 2025-06-15 10:52 | XMS_ITS | Clinical Summary ---
Author Organization [facility] Address [address] [place] [address] Phone Care Team Providers Care Rhythmic Gymnastics Coach Name Role Phone Gisele Patton MD Primary [...] topic Medical Devices Not on file Insurance [facility] HMO [facility] Member Subscriber Plan / Payer (Ef fective 2019-Present) Name:Sri Perezdawson Richter Relation to Subscriber:Self Name:ChrisSridawson Richter Payer ID:Not on file Type:[facility] Address: [address] [facility] Member Subscriber Plan / Payer (Ef fective 2019-Present) Name:Chris Leonor M Relation to Subscriber:Self Name:Leonor Perez Payer ID:Not on file Type:HMO Address: [address] NET PARTIAL [facility] HMO Member Subscriber Plan / Payer (Ef fective 2019-Present) Name:Leonor Perez Relation to Subscriber:Self Name:Leonor Perez Payer ID:Not on file Type:[facility] Address: [address] [facility] Member Subscriber Plan / Payer (Ef fective 2019-Present) Name:Leonor Perez Relation to Subscriber:Self Name:Leonor Perez Payer ID:Not on file Type:HMO Address: [address] NET PARTIAL [facility] HMO Member Subscriber Plan / Payer (Ef fective 2019-Present) Name:Leonor Perez Relation to Subscriber:Self Name:Leonor Perez Payer ID:Not on file Type:O Address: [address] [facility] Member Subscriber Plan / Payer (Ef fective 2019-Present) Name:Leonor Perez Relation to Subscriber:Self Name:Leonor Perez Payer ID:Not on file Type:HMO Address: [address] NET PARTIAL [facility] HMO Member Subscriber Plan / Payer (Ef fective 2019-Present) Name:Leonor Perez Relation to Subscriber:Self Name:Leonor Perez Payer ID:Not on file Type:O Address: [address] NET PARTIAL [facility] HMO Member Subscriber Plan / Payer (Ef fective 2019-Present) Name:Leonor Perez Relation to Subscriber:Self Name:Leonor Perez Payer ID:Not on file Type:HMO Address: [address] NET PARTIAL Care Teams Rhythmic Gymnastics Coach Relationship Specialty Start Date End Date Gisele Patton MD [address] [place] [address] PCP - General Internal Medicine 02/04/22 Additional Source Comments The information contained in this document represents components of the legal health record. It is not the complete legal health record.[facility]
--- OUTSIDE RECORDS SUMMARY | 2025-06-15 10:52 | XMS_ITS | Clinical Summary ---
Author Organization [employer] Address [address] [facility] [address] [place] [address] Care Team Providers Care Side Seam Envelope Machine Operator Name Role Phone Unavailable Primary Care [...]
--- OUTSIDE RECORDS SUMMARY | 2025-06-15 10:52 | XMS_ITS | Patient Health Record ---
Author Organization [facility] Address [address] [place] [address] Care Team Providers Care Agricultural Equipment Sales Manager Name Role Phone Gisele Patton Primary Care Provider Mega Warner Jr Unavailable [phone] Reason For Referral No Information Medications Medication SIG (Take, Route, Frequency, Duration) Notes Start Date End Date Status DOK Active Problems Problem Type SNOMED Code ICD Code Onset Dates Problem Status W/U Status Risk Notes Problem 354363011 Left lower quadrant pain (R10.32) Active confirmed Problem 975813762 Abdominal bloating (R14.0) Active confirmed Problem 771602694 Right lower quadrant pain (R10.31) Active confirmed Problem 78035175 Abdominal pain, epigastric (R10.13) Active confirmed Problem 270410147 Irritable bowel syndrome with constipation (K58.1) Active confirmed Plan Of Treatment Pending Test Test Name Order Date XR GI SMALL BOWEL SERIES 07/25/2016 Future Test Test Name Order Date COLONOSCOPY 01/16/2017 Insurance Providers Payer Name Payer Address Payer Phone Subscriber Number Group Number Insured Name Patient Relationship to Insured Coverage Start Date Coverage End Date [facility] [address] [place] [address] [id number] RICHA RUFFIN Self - patient is the insured [facility] [address] [place] [address] [id number] RICHA RUFFIN Self - patient is the insured Medical (General) History Medical History History ICD Code Denies [place],DM,CVA,Lung disease,renal dise ase urinary incontinence migraine headaches positive PPD, chest x-ray negative Surgical History Surgery Date(Month/Year) carpal tunnel release ovarian surgery
--- OUTSIDE RECORDS SUMMARY | 2025-06-15 10:52 | XMS_ITS | Encounter Summary ---
Author Organization [facility] Address [address] [facility] 7 [place] [address] Care Team Providers Care Learning Support Assistant Name Role Phone Unavailable Primary Care Provider Unavailabl e Encounter Details Date Type Department Care Team (Latest Contact Info) Description 09/12/2021 Abstract [facility] CONVERSIONS Dental, Provider, DDS Social History [...]
== END 2025-06-15 10:11 | disposition home or self-care (01) ==
LOC: HO.HMCH 09:16
PROVIDERS: PCP Internal Medicine; Visit Provider Internal Medicine
DX: J02.0 Streptococcal pharyngitis (principal); M79.629 Pain in unspecified upper arm; R68.89 Other general symptoms and signs; Z13.9 Encounter for screening, unspecified

== ENCOUNTER → 2025-06-15 09:15 | Outpatient (BNVA) | payer OTHER, SELFPAY | PROVIDERS: PCP Internal Medicine; Visit Provider Internal Medicine | DX: J02.0 Streptococcal pharyngitis (principal); M79.629 Pain in unspecified upper arm; R68.89 Other general symptoms and signs | CPT/HCPCS: 87880 ==

== ENCOUNTER 2025-08-23 10:32 | Outpatient (AMB) | payer OTHER, SELFPAY ==
--- NOTE | 2025-08-23 10:39 | A.OFFPC_ITS ---
Vital Signs 08/23/25 10:41 Height 5 ft 3 in Weight 129 lb BMI 22.8 BP 134/86 Blood Pressure Location Rt brachial Position Sitting Pulse 59 Pulse Source Pulse Oximeter Temp 97.3 F Temp Source Temporal Artery Scan Pulse Oximetry (%) 98 Oxygen Delivery Method Room Air Intake Visit Reasons: fever and cough Intake Note: Patient is here to follow up on Fever with chills , Congestion, Cough, sore throat, and headaches . Fruit Thinner Machine Operator Required: Yes Fruit Thinner Machine Operator Language: Stringed Instrument Assembler Name: Cali, ID: [id number] Forming Yardage Control Operator: Not Required per policy Accompanied by: Self / Same As Patient Allergies No Known Allergies Allergy (Unknown, Verified 08/23/25 10:41) NOT APPLICABLE Medication List - Last Reconciled 08/23/25 by Mallorie Jiménez MD lactulose 20 grams (30 mL) PO BID 30 days sennosides-docusate sodium 8.6-50 mg (Senna with Docusate Sodium) 1 tab-cap PO BEDTIME sumatriptan succinate 25 mg PO Q2-4H PRN 30 days Tobacco use date assessed: 08/23/25 Dental Screening Dental Screen Date: 06/15/25 HPI HPI Comments History of Present Illness Details The patient is a 55 year old female presenting with fever, headache, and cough. The patient reports the onset of symptoms was yesterday, including subjective fever, chills, a dry cough, frontal headache, and some hoarseness. The patient denies nausea, vomiting, or diarrhea. 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 The patient has been taking Tylenol without relief. A review of medications indicates the patient is not currently taking prescribed cetirizine, omeprazole, or sumatriptan [facility] Medical History (Updated 06/15/25 @ 10:13 by Bala Flores MD) Lump in armpit Allergic rhinitis Hypovitaminosis D Urticaria Hand numbness Family history of diabetes mellitus Abscess of axilla, left Overactive bladder Hospital discharge follow-up Incontinence Recurrent UTI Chronic constipation RUQ abdominal pain Constipation Hypovitaminosis D Irregular menses Urinary incontinence GERD (gastroesophageal reflux disease) Migraine headache with aura History of positive PPD Surgical History Hx of removal of cyst History of esophagogastroduodenoscopy (EGD) Hx of colonoscopy S/P tendon repair History of dilation and curettage History of removal of ovarian cyst History of tubal ligation Family History Father Stomach cancer Mother Heart disease Arthritis Elevated cholesterol Diabetes Hypertension Brother No problems noted. Brother No problems noted. Sister No problems noted. Sister No problems noted. Sister No problems noted. Sister No problems noted. Son No problems noted. Son No problems noted. Son No problems noted. 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 Clarke Loomis, Porsche Del Rio, Trent Roberts and colleagues, with an educational whitney from [employer]. Physical exam (Primary Care) Vital Signs: Last Vital Signs Temp 97.3 F 08/23/25 10:41 Pulse 59 08/23/25 10:41 BP 134/86 08/23/25 10:41 Pulse Ox 98 08/23/25 10:41 Oxygen Delivery Method Room Air 08/23/25 10:41 General: Well-appearing, alert, oriented ?3, in no acute distress. HEENT: Normocephalic, atraumatic, PERRLA, EOMI, no scleral icterus. External ears normal, tympanic membranes intact bilaterally, no erythema or effusion. N trish patent, erythematous nasal mucosa, no discharge. Posterior oropharyngeal erythema. Neck Supple. Cardiovascular: RRR, S1-S2 appreciated, no murmurs, rubs or gallops. Respiratory: Lungs clear to auscultation bilaterally, no wheezes, rales or rhonchi. BMI result Body Mass Index 22.8 Tobacco/Smoking Status: Tobacco use Status Tobacco use date assessed 08/23/25 08/23/25 10:46 Patient Tobacco Use Status Never used Tobacco 08/23/25 10:46 e-Cigarette/Vaping Use Never Used 08/23/25 10:46 Thrive Assessment: Date of Thrive Assessment Date Thrive assessed 11/26/24 08/23/25 10:46 Coding Level of Care Code Est Pt Level 3 (95418) Diagnoses Viral URI with cough J06.9 Assessment & Plan Assessment & Plan (1) Viral URI with cough: Code(s): J06.9 - Acute upper respiratory infection, unspecified Plan: The patient presents with a one-day history of symptoms including subjective fever, chills, dry cough, frontal headache, and hoarseness after a known sick contact at work. -test for COVID and influenza -ibuprofen 400 mg every 8 hours as needed for headaches and aches, take it with food and water. Robitussin twice a day p.r.n. cough Advised to maintain hydration with plenty of fluids Patient advised to return if symptoms worsen, not improving or if they develop high fever high mucus production Orders: Orders SARS-CoV2/FLU/RSV Today R05.9 - Cough, unspecified Medications: New ibuprofen 400 mg PO Q8H PRN 30 tabs 0RF pain dextromethorphan polistirex ER (Robitussin ER) 10 mL PO Q12H PRN 89 mL 0RF cough Discontinued cetirizine (All Day Allergy (cetirizine)) Discontinued Reason: Patient no longer taking 10 mg PO DAILY 90 days PRN 90 tabs 2RF allergy symptoms omeprazole Discontinued Reason: Patient no longer taking 20 mg PO BID 60 days 120 caps 3RF R10.13 - Epigastric pain
[2025-08-23 10:41] VITALS: BP 134/86; PULSE 59; TEMP 36.3; O2SAT 98; BMI 22.8
--- OUTSIDE RECORDS SUMMARY | 2025-08-23 12:11 | XMS_ITS | Encounter Summary ---
Author Organization [facility] Address [address] [facility] 7 [place] [address] Care Team Providers Care Car Dumper Name Role Phone Unavailable Primary Care Provider Unavailabl e Encounter Details Date Type Department Care Team (Latest Contact Info) Description 09/12/2021 Abstract [facility] CONVERSIONS Dental, Provider, DDS Social History Tobacco [...]
--- OUTSIDE RECORDS SUMMARY | 2025-08-23 12:11 | XMS_ITS | Clinical Summary ---
Author Organization [facility] Address [address] [facility] 7t [place] [address] Care Team Providers Care Facility Assistant Name Role Phone Unavailable Primary Care [...] 03/08/2023 03/08/2013 COVID-19 Vaccine (1 - season) 2025 Influenza Vaccine (#1) 2025 [...]
--- OUTSIDE RECORDS SUMMARY | 2025-08-23 12:11 | XMS_ITS | Clinical Summary ---
Author Organization [facility] Address [address] [place] [address] Phone Care Team Providers Care Area Development Manager Name Role Phone Gisele Patton MD Primary [...] 2017, Additional history exists COVID-19 VACCINE ( - 2024- season) 2025 10/10/2021, 02/15/2021, 01/25/2021 RSV VACCINE (1 - 1-dose 75+ series) 2043 HEPATITIS A VACCINES Aged Out No long [...] topic Medical Devices Not on file Insurance [facility] HMO [facility] PARTIAL O Member Subscriber Plan / Payer (Ef fective 2019-Present) Name:Leonor Perez Relation to Subscriber:Self Name:Sri Perezdawson Richter Payer ID:Not on file Type:HMO Address: [address] PARTIAL O Member Subscriber Plan / Payer (Ef fective 2019-Present) Name:Leonor Perez Relation to Subscriber:Self Name:Leonor Perez Payer ID:Not on file Type:HMO Address: [address] NET PARTIAL O Member Subscriber Plan / Payer (Ef fective 2019-Present) Name:Chris Leonor Richter Relation to Subscriber:Self Name:Leonor Perez Neelam Payer ID:Not on file Type:O Address: [address] [place], [place] [address]O Member Subscriber Plan / Payer (Ef fective 2019-Present) Name:Leonor Perez Relation to Subscriber:Self Name:Leonor Perez Payer ID:Not on file Type:HMO Address: [address] NET [facility]IAL [facility] Member Subscriber Plan / Payer (Ef fective 2019-Present) Name:Chris Leonor Richter Relation to Subscriber:Self Name:ChrisLeonor aguirre Neelam Payer ID:Not on file Type:O Address: [address] [place], [place] [address]O Member Subscriber Plan / Payer (Ef fective 2019-Present) Name:Leonor Perez Relation to Subscriber:Self Name:Leonor Perez Payer ID:Not on file Type:HMO Address: [address] NET [facility]IAL [facility] Member Subscriber Plan / Payer (Ef fective 2019-Present) Name:Leonor Perez Neelam Relation to Subscriber:Self Name:Leonor Perez Payer ID:Not on file Type:O Address: [address] NET [facility] Member Subscriber Plan / Payer (Ef fective 2019-Present) Name:Chris Leonor M Relation to Subscriber:Self Name:Leonor Perez Payer ID:Not on file Type:HMO Address: [address] NET PARTIAL Care Teams Area Development Manager Relationship Specialty Start Date End Date Gisele Patton MD [address] [place] [address] PCP - General Internal Medicine 02/04/22 Additional Source Comments The information contained in this document represents components of the legal health record. It is not the complete legal health record.[facility]
== END 2025-08-23 11:12 | disposition home or self-care (01) ==
LOC: HO.HMCH 10:33
PROVIDERS: Visit Provider Student in an Organized Health Care Education/Training Program
DX: J06.9 Acute upper respiratory infection, unspecified (principal)

== ENCOUNTER 2025-08-23 10:32 | Outpatient (REF) | payer OTHER, SELFPAY ==
[2025-08-23 12:44] LABS: Resp Syncy Virus RNA Qual PCR NEGATIVE (Negative); SARS COV2 PCR INHOUSE NEGATIVE (Negative)
== END 2025-08-23 10:33 | disposition home or self-care (01) ==
LOC: HO.LAB 10:32
PROVIDERS: Visit Provider Student in an Organized Health Care Education/Training Program
DX: J06.9 Acute upper respiratory infection, unspecified (principal)
CPT/HCPCS: 87637

== ENCOUNTER 2025-08-27 10:32 | Outpatient (REF) | payer OTHER, SELFPAY ==
--- OUTSIDE RECORDS SUMMARY | 2024-10-28 07:45 | XMS_ITS | Continuity of Care Document ---
Author Organization [facility] Address [address] [facility] [address] [place] [address] Phone Care Team Providers Care Clam Shovel Operator Name Role Phone Bryant THOMPSON, RVT, CARMEN, Clarke Unavailable U navailable Allergies, Adverse Reactions, Alerts Substance Reaction Status Criticality No Known Allergies Active No Inform ation Procedures Procedure Date No Charge For Services Office/Outpt E&M Established 15 Mins- CT & [place] Duplex Scan-extrem Veins; Uni/ CT & [place] D Duplex Scan-extrem Veins; Uni/ CT & [place] N Endovenous Laser, 1st Vein- CT & [place] Ultrason Guidan Needle Bx-rad- CT & [place] N Inj Sclerosing Solution; Sngl- CT & MA N Offic/outpt E&m Estab 5 Min Trial- Telem edicine CT & [place] Offic Cons New/estab Mod 40 Mi- CT & [place] Surgical Stockings CVR Reveal Thigh High 20-30 Duplex Scan-extrem Veins; Comp- CT & [place] Advance Directives Directive Yes / No Effective Date File Name No Information Encounters Encounter Description Practice Location Reason(s) For Visit Diagnoses Date Provider Providers Copied on Encounter [facility], [address] [facility] [address], [id number], [place] tel:[phone] CV[place] - [place] - [place] Nevus, non-neoplast ic 5 Bryant THOMPSON, RVT, RPCATRACHO Mir. [address] [place] [address] 302, [place], [place], [id number], [place]. tel:[phone] Referring Provider: Gisele Maloney MD, [address] [facility] , [address] [place] D/B/A: [place], [address]. tel:[phone] Office/Outpt E&M Established 15 Mins- CT & [place] [facility], [address] [place] [address] [facility] [address], [id number], [place] tel:[phone] CVR - [facility] Chronic venous hypertension (idiopathic) with other complication s of right lower extremity 4 Tate Dale. [address] [place] [address] Suite [facility], [place], [place], [id number], [place]. tel:[phone] Referring Provider: Gisele Maloney MD, [address] [facility] , [address] [place] [address] D/B/A: [place], [address]. tel:[phone] [facility], [address] [place] [address] Dr Loza 1000Suite [place] Painting [place], [id number], [place] tel:[phone] CVR - [facility] Chronic venous hypertension (idiopathic) with other complication s of right lower extremity 4 Diana Raya. [address] [facility], [address], [place], [place], [id number], [place]. tel:[phone] Referring Provider: Gisele Maloney MD, [address] [facility] , [address] [place] D/B/A: [place], [address]. tel:[phone] [facility], [address] [place] [address] Dr Loza 1000[address] 1000[place], [id number], [place] tel:[phone] CVR - [facility] Encounter for follow-up examination after completed treatment for conditions other than malignant neoplasmPain in right leg 4 Bryant THOMPSON RVT, RPVI Robert. [address] [facility], [address], [place], [id number], [place]. tel:[phone] Referring Provider: Gisele Maloney MD, [address] [facility] DrArthur, [address] [place] [address] D/B/[place]: [place], [address]. tel:[phone] [place] [facility], [address] [place] [address] Dr Loza [address]Suite [place] Painting [place], [id number], [place] tel:[phone] [facility] Varicose veins of right lower extremity with other complication s 4 Bryant THOMPSON RVT, RPVI Robert. [address] [place] [address], Suite [facility], [place], [id number], [place]. tel:[phone] Referring Provider: Gisele Maloney MD, [address] [facility] [address]Arthur, [address] [place] [address] D/B/[place]: [place], [address]. tel:[phone] [place] [facility], [address] [place] [address] [address]SuYelitza villanueva [place], [id number], [place] tel:[phone] [facility] No Information 4 Bryant THOMPSON RVT, RPVI Robert. [address] [place] [address], Suite [facility], [place], [id number], [place]. tel:[phone] Offic/outpt E&m Estab 5 Min Trial- Telemedicine CT & [place] [facility], [address] [place] [address] Dr Loza 1000SuYelitza villanueva [place], [id number], [place] tel:[phone] [facility] Chronic venous hypertension (idiopathic) with other complication s of bilateral lower extremity Jun- 4 Bryant THOMPSON RVT, RPVI Robert. [address] [facility], [address], [place], [id number], [place]. tel:[phone] Referring Provider: Gisele Maloney MD, [address] [place] [address] DrArthur, [address] [place] D/B/A: chalo [facility], [place], [address]. tel:[phone] Offic Cons New/estab Mod 40 Mi- CT & [place] [facility], [address] [place] [address] [address], [place], [id number], tel:[phone] CVR - [facility] Chronic venous hypertension (idiopathic) without complication s of bilateral lower extremityRes tless legs syndromeVeno us insufficienc y (chronic) (peripheral) Cramp and spasmLocaliz ed edema Sep-0 4 Bryant THOMPSON, MARIA GUADALUPE, CARMEN Mir. [address] [place] [address], [facility] [place], [id number], . tel:[phone] [place] [facility], [address] [place] [address] [address], [place], [id number], tel:[phone] [facility] - [facility] Pain in right legPain in left leg Sep-0 4 Bryant THOMPSON, MARIA GUADALUPE, CARMEN Mir. [address] [place] [address], [facility] [place], [id number], . tel:[phone] Referring Provider: Clarke Hurtado MD, MARIA GUADALUPE, CARMEN, [address] [place] [address], [address]. tel:[phone] Family History Family Member Type Diagnosis Age At Onset No Information Payers Payer name Insurance type Covered constitution party ID Authoriza tion(s) Self Pay 09 Social History Type Description Quantity Date Captured Comments Alcohol Use Details No Caffeine Use Details Unknown Tobacco Use Status Never smoked tobacco 2024 Smoking Status Never smoker Non-Smoking Tobacco Use Details : No Details Available : No Details Available Sex Female Chief Complaint And Reason For Visit No Information Reason For Referral Reason For Referral No Information Plan Of Treatment Date Type Action Status Goal Diet education completed Goal Tobacco cessation counseling completed Goal Diet education completed Referral Ordered: Weight management: Referral to physician timeframe: 3 Months (related to Body mass index (BMI) 22.0-22.9, adult) ordered Referral Ordered: Weight management: Referral to physician timeframe: 3 Months (related to Body mass index (BMI) 22.0-22.9, adult) ordered History Of Present Illness Encounter Date Complaint History Of Prese nt Illness No Information Functional Status Date Functional Assessmen t No Information Instructions Date Instruction Additional Infor mation Lifestyle education Related to B itz mass index (BMI) 22.0-22.9, adult Giving Encouragement to exercise Related to Body mass index (BMI) 22.0-22.9, adult Diet education Related to Body mass index (BMI) 22.0-22.9, adult Patient education booklet given Related to Chronic venous hypertension (idiopathic) with other complications of right lower extremity Pre and post instruc tions reviewed and [...] (BMI) 22.0-22.9, adult Assessments Type Assessment Date assessment Nevus, non-neoplastic 5 Patient Care Teams Name Effective Dates (start - stop) Status Members No Information
--- NOTE | ~2025-08-27 | MM_ITS ---
EXAMINATION: MM SCREENING DIGITAL BREAST TOMOSYNTHESIS, BILATERAL CLINICAL INFORMATION: Screening. Asymptomatic. COMPARISON: Mammography: Comparison is made with available priors TECHNIQUE: Digital breast mammography with tomosynthesis is performed in both the craniocaudal and mediolateral oblique views along with computer-aided detection (CAD). FINDINGS: The breasts are heterogeneously dense, which may obscure small masses. There are no significant masses, abnormal calcifications, or other abnormalities. MM/MM tomosynthesis screening BI IMPRESSION: No mammographic evidence of malignancy. ASSESSMENT: BI-RADS Category 1: Negative RECOMMENDATION: Routine annual mammography screening. 1 year F/U This examination should not preclude the clinical evaluation of a suspicious palpable abnormality. This patient's information was entered into a reminder system with a target due date for their next mammogram. Electronically signed by: Lizbeth Millan DO 08/30/2025 06:48 PM [facility]
--- OUTSIDE RECORDS SUMMARY | 2025-08-27 10:35 | XMS_ITS | Encounter Summary ---
Author Organization [facility] Address [address] [facility] 7 [place] [address] Care Team Providers Care Financial Specialist Name Role Phone Unavailable Primary Care Provider Unavailabl e Encounter Details Date Type Department Care Team (Latest Contact Info) Description 09/12/2021 Abstract [facility] CONVERSIONS Dental, Provider, DDS Social [...]
--- OUTSIDE RECORDS SUMMARY | 2025-08-27 10:35 | XMS_ITS | Clinical Summary ---
Author Organization [employer] Address [address] [facility] 7t [place] [address] Care Team Providers Care Farm Management Adviser Name Role Phone Unavailable Primary Care Provider [...]
--- OUTSIDE RECORDS SUMMARY | 2025-08-27 10:35 | XMS_ITS | Clinical Summary ---
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 Role Phone Gisele Patton MD Primary [...] topic Medical Devices Not on file Insurance [facility] HMO REPLACED BY [facility] PARTIAL O Member Subscriber Plan / Payer (Ef fective 2019-Present) Name:Leonor Perez Relation to Subscriber:Self Name:Sri Perezdawson Richter Payer ID:Not on file Type:HMO Address: [address] PARTIAL O Member Subscriber Plan / Payer (Ef fective 2019-Present) Name:Leonor Perez Relation to Subscriber:Self Name:Leonor Perez Payer ID:Not on file Type:HMO Address: [address] NET PARTIAL O Member Subscriber Plan / Payer (Ef fective 2019-Present) Name:Chris Leonor Richter Relation to Subscriber:Self Name:Leonor Perez Neelam Payer ID:Not on file Type:O Address: [address] [place], [place] [address]O Member Subscriber Plan / Payer (Ef fective 2019-Present) Name:Leonor Perez Relation to Subscriber:Self Name:Leonor Perez Payer ID:Not on file Type:HMO Address: [address] NET [facility]IAL [facility] Member Subscriber Plan / Payer (Ef fective 2019-Present) Name:Chris Leonor Richter Relation to Subscriber:Self Name:ChrisLeonor aguirre Neelam Payer ID:Not on file Type:O Address: [address] [place], [place] [address]O Member Subscriber Plan / Payer (Ef fective 2019-Present) Name:Leonor Perez Relation to Subscriber:Self Name:Leonor Perez Payer ID:Not on file Type:HMO Address: [address] NET PARTIAL [facility] Member Subscriber Plan / Payer (Ef fective 2019-Present) Name:Leonor Perez Neelam Relation to Subscriber:Self Name:Leonor Perez Payer ID:Not on file Type:O Address: [address] NET PARTIAL [facility] Member Subscriber Plan / Payer (Ef fective 2019-Present) Name:Chris Leonor M Relation to Subscriber:Self Name:Leonor Perez Payer ID:Not on file Type:HMO Address: [address] NET PARTIAL Care Teams Bridge Ironworker Helper Relationship Specialty Start Date End Date Gisele Patton MD [address] [place] [address] PCP - General Internal Medicine 02/04/22 Additional Source Comments The information contained in this document represents components of the legal health record. It is not the complete legal health record.[facility]
== END 2025-08-27 10:33 | disposition home or self-care (01) ==
LOC: HO.MAMMO 10:32
PROVIDERS: Visit Provider Internal Medicine
DX: Z12.31 Encounter for screening mammogram for malignant neoplasm of breast (principal)
CPT/HCPCS: 77063; 77067

== ENCOUNTER → 2025-08-27 10:45 | Outpatient (BNV) | payer OTHER, SELFPAY | PROVIDERS: Visit Provider Internal Medicine | DX: Z12.31 Encounter for screening mammogram for malignant neoplasm of breast (principal) | CPT/HCPCS: 77063; 77067 ==

== ENCOUNTER 2025-09-08 07:25 | Outpatient (REF) | payer OTHER, SELFPAY ==
--- NOTE | ~2025-09-08 | XR_ITS ---
EXAMINATION: XR CHEST CLINICAL INFORMATION: Z22.7 - Latent tuberculosis COMPARISON: February 17, 2024 TECHNIQUE: 2 views of the chest were obtained. FINDINGS: There is no pneumothorax. There is no pleural effusion. Lungs are clear. Heart size is within normal limits. Mediastinal and hilar structures are unremarkable. XR/XR chest 2V IMPRESSION: No acute disease Electronically signed by: Hans Tamayo MD 09/08/2025 02:38 PM EST
[2025-09-09 05:29] LABS: Rubeola IgG (Measles) >300.00 AU/mL
[2025-09-11 23:56] LABS: TS Negative Control Passed; TS Panel A 8; TS Panel B 10; TS Positive Control Passed; TSpotTB Positive (Negative)
== END 2025-09-08 07:26 | disposition home or self-care (01) ==
LOC: HO.XRAY 07:25
PROVIDERS: PCP Internal Medicine; Visit Provider Internal Medicine
DX: Z11.1 Encounter for screening for respiratory tuberculosis (principal); Z00.00 Encounter for general adult medical examination without abnormal findings; Z22.7 Latent tuberculosis; K21.9 Gastro-esophageal reflux disease without esophagitis; R74.8 Abnormal levels of other serum enzymes; R10.11 Right upper quadrant pain; K59.09 Other constipation
CPT/HCPCS: 36415; 71046; 86481; 86735; 86762; 86765; 96127

== ENCOUNTER 2025-09-08 07:25 | Outpatient (AMB) | payer OTHER, SELFPAY ==
--- OUTSIDE RECORDS SUMMARY | 2025-09-08 07:28 | XMS_ITS | Patient Health Record ---
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 Problems Problem Type SNOMED Code ICD Code Onset Dates Problem Status W/U Status Risk Notes Problem Left lower quadrant pain (440962096) Left lower quadrant pain (R10.32) Active confirmed Problem Abdominal bloating (978766831) Abdominal bloating (R14.0) Active confirmed Problem Right lower quadrant pain (096395483) Right lower quadrant pain (R10.31) Active confirmed Problem Epigastric pain (63621492) Abdominal pain, epigastric (R10.13) Active confirmed Problem Irritable bowel syndrome characterized by constipation (363368090) Irritable bowel syndrome with constipation (K58.1) Active confirmed Plan Of Treatment Pending Test Test Name Order Date XR GI SMALL BOWEL SERIES 07/25/2016 Future Test Test Name Order Date COLONOSCOPY 01/16/2017 Insurance Providers Payer Name Payer Address Payer Phone Subscriber Number Group Number Insured Name Patient Relationship to Insured Coverage Start Date Coverage End Date [facility] [address] [place] [address] [id number] RICHA RUFFIN Self - patient is the insured [facility] [address] [place] [address] [phone] [id number] RICHA RUFFIN Self - patient is the insured Medical (General) History Medical History History ICD Code Denies [place],DM,CVA,Lung disease,renal dise ase urinary incontinence migraine headaches positive PPD, chest x-ray negative Surgical History Surgery Date(Month/Year) carpal tunnel release ovarian surgery
[2025-09-08 07:29] VITALS: BP 121/56; PULSE 65; BMI 22.8
--- NOTE | 2025-09-08 07:29 | A.OFFVIS_ITS ---
Vital Signs 09/08/25 07:29 Height 5 ft 3 in Weight 129 lb BMI 22.8 BP 121/56 L Blood Pressure Location Lt brachial Position Sitting Pulse 65 Intake Visit Reasons: f/u Abdominal pain Intake Note: Patient 3 month follow up Abdominal pain Patient is taking probiotics and she is much better, denies any GI issues. 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 Required: No Accompanied by: Self / Same As Patient Allergies No Known Allergies Allergy (Unknown, Verified 09/08/25 07:28) NOT APPLICABLE Medication List - Last Reconciled 09/08/25 by Jaylon Guevara MD dextromethorphan polistirex ER (Robitussin ER) 10 mL PO Q12H PRN ibuprofen 400 mg PO Q8H PRN lactulose 20 grams (30 mL) PO BID 30 days sennosides-docusate sodium 8.6-50 mg (Senna with Docusate Sodium) 1 tab-cap PO BEDTIME sumatriptan succinate 25 mg PO Q2-4H PRN 30 days HPI HPI f/u Abdominal pain: Details: GI clinic visit for this 55 Chinese speaking female for follow-up after EGD and colonoscopy 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 PAST VISITS: Complains of increased burping in the morning after she has breakfast - sometimes after lunch and dinner Takes a mix of banana, milk and quinoa (uses 2% Lactaid milk) - burping starts right away. Constipation is better with medication - has a BM once daily in the am Taking Senna and lactulose and Lubiprostone was not approved by her insurance my constipation is terrible Took dulcolax which helped. Every time I eat, I get a lot of gas and it hurts. Seen at 2 months ago with abd pain Had labs, urine test and an US and was told everything was fine She was also having migraine CAR which was treated. Has a BM every day and can be associated with intermittent straining Taking Senna every night - sometimes takes 2. Taking Omeprazole and has not been helping. She was prescribed Pantoprazole since pt states there was no dose Has a BM daily Taking Omeprazole and states its not helping Notes excessive gas after eating Patient cc: abdominal discomfort, acid reflex with a lot of gasses, after Colonoscopy she is been with constipation. Complains of constipation, gas and bloating since she had her colonoscopy. Complains of a long hx of constipation - worse since her colon Has a BM once a day in the am with passage of hard stools. Takes 2 fibre gummies daily which has helped. Patient complains of mild heartburn and denies dysphagia, nausea, vomiting, change in appetite or weight. Denies recent diarrhea, black stools or rectal bleeding. Patient denies smoking or ETOH abuse, major cardiac or pulmonary problems, loud snoring or sleep apnea Denies problems with anesthesia in the past. Denies being on chronic anticoagulation. Patient denies known family history of colon polyps, colon cancer. Dad with stomach cancer at age 68 yrs LABS IN [facility] : Reviewed IMAGING STUDIES: 05/2024 UGI SHOWED: 1. Small type I hiatal hernia. 2. Significant gastroesophageal reflux. 3. Thickened appearance of the areae gastricae. In addition there are multiple foci of contrast pooling in the fundus the stomach. These findings are suggestive of erosive gastritis. Recommend correlation of EGD. ENDOSCOPIC STUDIES: 10/15/24 EGD AND COLON SHOWED: Endoscopy Findings: ESOPHAGUS: A single 0.5 cms healing erosion ar GE junction. No Almazan's. STOMACH: Diffuse gastritis and superficial chronic appearing erosions DUODENUM: Normal - biopsied to check for celiac sprue Colonoscopy Findings: Two small to medium sized polyps were removed Moderate diverticulosis seen in the left colon Moderate hemorrhoids on retroflexed exam. Plan: Repeat Colonoscopy in 3-5 years if polyps are adenomatous and 10 year if polyps are hyperplastic. Above findings were reviewed with the patient and relevant handouts were given and the discharge area. BIOPSIES SHOWED: A. Small bowel, biopsy: Small bowel/duodenal mucosa with preserved villi and no specific change; no evidence of celiac disease. B. Gastric antrum, biopsy: Gastric antral mucosa with minimal chronic inactive gastritis; negative for intestinal metaplasia and dysplasia. C. Gastric body, biopsy: Gastric body mucosa with focal minimal chronic inactive inflammation; negative for intestinal metaplasia and dysplasia. D. Colon, transverse, polyps: Tubular adenomas (2 pieces); negative for high- grade dysplasia and carcinoma. Comment: (B and C): Immunostains for H. pylori were negative Letter sent with biopsy results Patient placed on the colonoscopy recall list for repeat colonoscopy in 3 years. PAST GI HISTORY BY REVIEW OF MEDICAL RECORDS: 11/2023 PT WAS SEEN BY JOAQUÍN Hernandez PA: 53 y/o female last seen 05/2022- RLQ everyday when she wakes up-she has not know if it is due to her bowels. BM QD-typically normal Review of record shows Last colonoscopy 2016 Dr. Miller no polyps everything she eats makes her burp-reviewed diet- Review record shows history of H pylori treated negative test of cure She has no nausea, vomiting hematemesis, hematochezia fever or chills PFSH Medical History (Updated 06/15/25 @ 10:13 by Bala Flores MD) Lump in armpit Allergic rhinitis Hypovitaminosis D Urticaria Hand numbness Family history of diabetes mellitus Abscess of axilla, left Overactive bladder Hospital discharge follow-up Incontinence Recurrent UTI Chronic constipation RUQ abdominal pain Constipation Hypovitaminosis D Irregular menses Urinary incontinence GERD (gastroesophageal reflux disease) Migraine headache with aura History of positive PPD Surgical History Hx of removal of cyst History of esophagogastroduodenoscopy (EGD) Hx of colonoscopy S/P tendon repair History of dilation and curettage History of removal of ovarian cyst History of tubal ligation Family History Father Stomach cancer Mother Heart disease Arthritis Elevated cholesterol Diabetes Hypertension Brother No problems noted. Brother No problems noted. Sister No problems noted. Sister No problems noted. Sister No problems noted. Sister No problems noted. Son No problems noted. Son No problems noted. Son No problems noted. 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 Current occupational exposures/hazards: No Cognitive needs: No Hearing needs: No Vision needs: Yes Female Reproductive History Menstrual Age of Menarche: 12 Review of Systems Const All systems reviewed & are unremarkable except as noted in HPI and below Physical Exam Vital Signs: Last Vital Signs Pulse 65 09/08/25 07:29 BP 121/56 L 09/08/25 07:29 BMI result Body Mass Index 22.8 Const General: healthy appearing and no acute distress Nutritional Appearance: average body habitus Orientation/consciousness: patient oriented x3 Limitations: no limitations HEENT Head: Yes normal to inspection Ears: hearing grossly normal bilaterally Eyes Sclerae: sclerae normal Pupils: Equal, round and reactive pupils present Neck Neck: Yes normal visual inspection Chest Chest palpation & inspection: normal inspection of the chest Resp Effort & Inspection: normal respiratory effort Auscultation: clear to auscultation bilaterally Cardio Palpation: normal PMI Rate: regular rate Rhythm: regular rhythm Heart sounds: S1 normal heart sound present, S2 normal heart sound present and no murmurs GI Palpation (GI): Soft to palpation, nontender and No hepatosplenomegaly present Auscultation: normal bowel sounds Rectal Exam - Female: deferred Skin General skin exam: no rashes or lesions noted Neuro General: patient oriented x3, gait normal and moves all extremities Cranial nerves: Yes Equal, round and reactive pupils present Psych Appearance: grossly normal Mental Status: mental status grossly normal Assessment & Plan Assessment & Plan (1) Chronic GERD: Code(s): K21.9 - Gastro-esophageal reflux disease without esophagitis Category: Medical (2) Elevated liver enzymes: Comment: Encouraged patient to get follow-up blood work to further assess elevated liver enzymes. She will continue bowel regimen for constipation patient requested account development executive 15 minutes into phone call. Will call her back when account development executive available. patient called back completed visit Code(s): R74.8 - Abnormal levels of other serum enzymes Category: Medical (3) Chronic constipation: Comment: 51year-old female chronic constipation when following bowel regimen, stool softener high-fiber diet,- Gas, will use Gas-X good response in the past. continue High-fiber/FODMAP- Reviewed a previous colonoscopy 2017 discussed repeat-she will consider symptoms recur Code(s): K59.09 - Other constipation Category: Medical (4) RUQ abdominal pain: Comment: Normal U/S-will get liver enzymes, CBC Code(s): R10.11 - Right upper quadrant pain Category: Medical Plan 55 year old Chinese-speaking female with migraine headaches and hypercholesterol emia seen for follow-up of elevated LFTs, GERD and chronic constipation Pt complains of postprandial epigastric pain and abdominal bloating. Hepatitis serologies were negative - immunity to hepatitis A and B. BALTAZAR, smooth muscle antibody and antimitochondrial antibody were negative. Iron studies, alpha 1 anti-trypsin and celiac serologies were normal. Abdominal ultrasound showed a tiny gallbladder polyp. Repeat LFTs showed normal transaminases and mild elevation of alkaline phosphatase - continue to follow. 03/17/25 Pt was advised to increase omeprazole to 20 mg twice daily Continue taking senna at bedtime. Start lubiprostone 8 mcg twice daily (if approved by her insurance) 05/26/25 Burping ? related to lactulose Advised to switch to almond or coconut milk Start Probiotics once daily 09/08/25 Pt advised to continue taking probiotics and Senna for constipation Follow-up in 6 months Coding Level of Care Code Est Pt Level 3 (15834) Diagnoses Chronic GERD K21.9 Elevated liver enzymes R74.8 Chronic constipation K59.09 RUQ abdominal pain R10.11 Time Spent (min) 15
== END 2025-09-08 08:02 | disposition home or self-care (01) ==
LOC: HO.HGI 07:25
PROVIDERS: Visit Provider Internal Medicine Gastroenterology
DX: K21.9 Gastro-esophageal reflux disease without esophagitis (principal); R74.8 Abnormal levels of other serum enzymes; K59.09 Other constipation; R10.11 Right upper quadrant pain
CPT/HCPCS: 99213

== ENCOUNTER 2025-09-08 13:12 | Outpatient (AMB) | payer OTHER, MEDICAID, SELFPAY ==
[2025-09-08 13:35] VITALS: BP 112/68; PULSE 79; RESP 18; O2SAT 98; BMI 23.1
--- NOTE | 2025-09-08 13:35 | A.OFFPC_ITS ---
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 Accompanied by: Self / Same As Patient Allergies No Known Allergies Allergy (Unknown, Verified 09/08/25 13:49) NOT APPLICABLE Medication List - Last Reconciled 09/08/25 by Gisele Dickerson MD dextromethorphan polistirex ER (Robitussin ER) 10 mL PO Q12H PRN ibuprofen 400 mg PO Q8H PRN lactulose 20 grams (30 mL) PO BID 30 days sennosides-docusate sodium 8.6-50 mg (Senna with Docusate Sodium) 1 tab-cap PO BEDTIME sumatriptan succinate 25 mg PO Q2-4H PRN 30 days Tobacco use date assessed: 09/08/25 Dental Screening Dental Screen Date: 09/08/25 Did you have a dental visit in the last 12 months?: Yes Did you have a dental problem in the last 6 months where you did not have access to dental care?: No Was dental information given to patient?: Patient has dentist HPI HPI Comments History of Present Illness Details The patient is a 55-year-old female presenting for an annual physical examination and work clearance documentation. Her medications include ibuprofen, lactulose, and senna for constipation, and sumatriptan for migraines, all taken as needed. She has no known drug allergies. Past surgical history includes a lipoma removal in April, which was preceded by an infection at the site. She has also undergone a tendon repair, dilation and curettage (D&C), ovarian cyst removal, and tubal ligation. Her father is from stomach cancer. Her mother is alive with a history of diabetes, hyperlipidemia, hypertension, and arthritis. Her siblings have no reported medical conditions. - Mammogram: Completed. - Colonoscopy: [facility]. - Pap smear: Completed in 2022, results were normal with negative HPV. - Tetanus vaccination: Last administered on 03/13/2011. - Tuberculosis screening: A chest X-ray from 02/17/2024 showed no active disease. PFSH Medical History (Updated 09/08/25 @ 14:06 by Gisele Dickerson MD) Mild major depression Lump in armpit Allergic rhinitis Hypovitaminosis D Urticaria Hand numbness Family history of diabetes mellitus Abscess of axilla, left Overactive bladder Hospital discharge follow-up Incontinence Recurrent UTI Chronic constipation RUQ abdominal pain Constipation Hypovitaminosis D Irregular menses Urinary incontinence GERD (gastroesophageal reflux disease) Migraine headache with aura History of positive PPD Surgical History Hx of removal of cyst History of esophagogastroduodenoscopy (EGD) Hx of colonoscopy S/P tendon repair History of dilation and curettage History of removal of ovarian cyst History of tubal ligation Family History Father Stomach cancer Mother Heart disease Arthritis Elevated cholesterol Diabetes Hypertension Brother No problems noted. Brother No problems noted. Sister No problems noted. Sister No problems noted. Sister No problems noted. Sister No problems noted. Son No problems noted. Son No problems noted. Son No problems noted. 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 1. Little interest or pleasure in doing things: not at all 2. Feeling down, depressed, or hopeless: not at all 3. Trouble falling or staying asleep, or sleeping too much: not at all 4. Feeling tired or having little energy: not at all 5. Poor appetite or overeating: not at all 6. Feeling bad about yourself - or that you are a failure or have let yourself or your family down: not at all 7. Trouble concentrating on things, such as reading the newspaper or watching television: not at all 8. Moving or speaking so slowly that other people could have noticed. Or the opposite - being so fidgety or restless that you have been moving around a lot more than usual: not at all 9. Thoughts that you would be better off or of hurting yourself in some way: not at all Total score: 0 Depression Screening Interpretation: Negative Depression Screening Done: Yes 82113 - PHQ-9 Billing: Yes Source: Developed by Drs. Clarke Loomis, Porsche Del Rio, Trent Roberts and colleagues, with an educational whitney from [email or web address]. Thrive Questionnaire Date Thrive assessed: 09/08/25 I am a: Patient What is your living situation today?: I have a steady place to live Within the past 12 months, did the food you bought not last and you didn't have the money to get more?: I choose not to answer this question Within the past 12 months, did you worry whether your food would run out before you got money to buy more?: I choose not to answer this question Do you have trouble paying for medicines?: No Do you have trouble getting transportation to medical appointments?: No Do you have trouble paying your heating and electricity bill?: No Do you have trouble taking care of your child, family member or friend?: No Do you have trouble with day-to-day activities such as bathing, preparing meals, shopping, managing finances, etc.?: No Are you currently unemployed and looking for a job?: No Are you interested in more education?: I choose not to answer this question Please select the resources that you would like help with: None Currently or been in a relationship where the following occur: No concerns reported THRIVE Score: 0 AUDIT C Alcohol Use Questionnaire (AUDIT-C) 1. How often do you have a drink containing alcohol?: Never Total Score: 0 Score Reviewed/Action Taken: No MONI-7 AMB Questionnaire MONI-7 Date MONI - 7 assessed: 09/08/25 Feeling nervous, anxious, or on edge: 0 = Not at all Not being able to stop or control worryin = Not at all Worrying too much about different things: 0 = Not at all Trouble relaxin = Not at all Being so restless that it is hard to sit still: 0 = Not at all Becoming easily annoyed or irritable: 0 = Not at all Feeling afraid as if something awful might happen: 0 = Not at all Total MONI-7 score (0-4 normal; 5-9 mild; 10-14 moderate; 15-21 severe): 0 Source: Developed by Drs. Clarke Loomis, Porsche Del Rio, Trent Roberts and colleagues, with an educational whitney from [employer]. MONI-7 Assessment Billing MONI-7 Assessment Tool: MONI-7 Assessment 21829 Review of Systems Const All systems reviewed & are unremarkable except as noted in HPI and below Card Denies chest pain at rest, Denies chest pain with activity, Denies edema, Denies irregular heart rhythm, Denies claudication, Denies dyspnea, Denies dyspnea on exertion, Denies orthopnea, Denies paroxysmal nocturnal dyspnea and Denies slow heart rate Resp Denies cough, Denies dyspnea and Denies dyspnea on exertion Physical exam (Primary Care) Vital Signs: Last Vital Signs Pulse 79 09/08/25 13:35 Resp 18 09/08/25 13:35 BP 112/68 09/08/25 13:35 Pulse Ox 98 09/08/25 13:35 Oxygen Delivery Method Room Air 09/08/25 13:35 BMI result Body Mass Index 23.1 Tobacco/Smoking Status: Tobacco use Status Tobacco use date assessed 09/08/25 09/08/25 13:42 Patient Tobacco Use Status Never used Tobacco 09/08/25 13:42 e-Cigarette/Vaping Use Never Used 09/08/25 13:42 Depression Screening Interpretation: Negative Thrive Assessment: Date of Thrive Assessment Date Thrive assessed 09/08/25 09/08/25 13:42 Currently or been in a relationship where the following occur: No concerns reported [facility] Head: Yes normal to inspection, Yes normocephalic and Yes atraumatic Ears: external ears normal Eyes General: appearance normal, both eyes and all related structures Eyelids: Yes eyelids normal Conjunctivae: conjunctivae normal Neck Neck: Yes normal visual inspection and Yes supple Resp Effort & Inspection: normal respiratory effort Auscultation: clear to auscultation bilaterally Cardio Jugular venous distension: no JVD Rate: regular rate Rhythm: regular rhythm Heart sounds: S1 normal heart sound present and S2 normal heart sound present GI Inspection: Yes normal to inspection Palpation (GI): Soft to palpation and nontender Auscultation: normal bowel sounds Skin General skin exam: no rashes or lesions noted Neuro General: no focal motor deficits Extrem General: Yes full ROM Psych Appearance: grossly normal Coding Level of Care Code Est Pt Prev Care 40-64y(59716) Diagnoses Physical exam Z00.00 Additional Codes PHQ-9 - 79970 - PHQ-9 Billing: Yes ([id number]) MONI-7 Assessment Billing - MONI-7 Assessment Tool: MONI-7 Assessment 06843 ([id number]) Time Spent (min) 32 Assessment & Plan Assessment & Plan (1) Physical exam: Code(s): Z00.00 - Encounter for general adult medical examination without abnormal findings Category: Medical Plan Plan 1. Annual Physical Examination The patient's health maintenance screenings are up-to-date, including a mammogram, a recent colonoscopy, and a normal Pap smear from 2022. Her tuberculosis screening is also current, with a chest X-ray from January 2024 showing no active disease. The patient will proceed to the laboratory for bloodwork and to radiology for imaging after the visit. Work-related paperwork will be completed with the notation that these results are pending. Orders: Orders Mumps Virus IgG Antibody Today Z23 - Encounter for immunization XR chest 2V Today Z22.7 - Latent tuberculosis T Spot TB Today Z11.1 - Encounter for screening for respiratory tuberculosis Rubella IgG Antibody Today Z23 - Encounter for immunization Rubeola IgG (Measles) Today Z23 - Encounter for immunization
--- OUTSIDE RECORDS SUMMARY | 2025-09-08 17:19 | XMS_ITS | Encounter Summary ---
Author Organization [facility] Address [address] [facility] 7 [place] [address] Care Team Providers Care Roll Up Operator Name Role Phone Unavailable Primary Care Provider Unavailabl e Encounter Details Date Type Department Care Team (Latest Contact Info) Description 09/12/2021 Abstract [facility] CONVERSIONS Dental, Provider, DDS Social History [...]
--- OUTSIDE RECORDS SUMMARY | 2025-09-08 17:19 | XMS_ITS | Clinical Summary ---
Author Organization [facility] Address [address] [place] [id number] Phone Care Team Providers Care Exterior Designer Name Role Phone Gisele Patton MD Primary [...] topic Medical Devices Not on file Insurance [facility] H[facility] PARTIAL O Member Subscriber Plan / Payer (Ef fective 2019-Present) Name:Leonor Perez Relation to Subscriber:Self Name:Sri Perezdawson Richter Payer ID:Not on file Type:HMO Address: [address] PARTIAL O Member Subscriber Plan / Payer (Ef fective 2019-Present) Name:Leonor Perez Relation to Subscriber:Self Name:Leonor Perez Payer ID:Not on file Type:HMO Address: [address] NET PARTIAL O Member Subscriber Plan / Payer (Ef fective 2019-Present) Name:Chris Leonor Richter Relation to Subscriber:Self Name:Leonor Perez Neelam Payer ID:Not on file Type:O Address: [address] [place], [place] [address]O Member Subscriber Plan / Payer (Ef fective 2019-Present) Name:Leonor Perez Relation to Subscriber:Self Name:Leonor Perez Payer ID:Not on file Type:HMO Address: [address] NET [facility] Member Subscriber Plan / Payer (Ef fective 2019-Present) Name:Chris Leonor Richter Relation to Subscriber:Self Name:ChrisLeonor aguirre Neelam Payer ID:Not on file Type:O Address: [address] [place], [place] [address]O Member Subscriber Plan / Payer (Ef fective 2019-Present) Name:Leonor Perez Relation to Subscriber:Self Name:Leonor Perez Payer ID:Not on file Type:HMO Address: [address] NET PARTIAL [facility] Member Subscriber Plan / Payer (Ef fective 2019-Present) Name:Leonor Perez Neelam Relation to Subscriber:Self Name:Leonor Perez Payer ID:Not on file Type:O Address: [address] NET PARTIAL [facility] Member Subscriber Plan / Payer (Ef fective 2019-Present) Name:Chris Leonor M Relation to Subscriber:Self Name:Leonor Perez Payer ID:Not on file Type:HMO Address: [address] NET PARTIAL Care Teams Exterior Designer Relationship Specialty Start Date End Date Gisele Patton MD [address] [place] [address] PCP - General Internal Medicine 02/04/22 Additional Source Comments The information contained in this document represents components of the legal health record. It is not the complete legal health record.[facility]
--- OUTSIDE RECORDS SUMMARY | 2025-09-08 17:19 | XMS_ITS | Clinical Summary ---
Author Organization [employer] Address [address] [facility] [address] [place] [address] Care Team Providers Care Peoplesoft Taleo Manager Name Role Phone Unavailable Primary Care [...]
== END 2025-09-08 14:03 | disposition home or self-care (01) ==
LOC: HO.HMCH 13:13
PROVIDERS: PCP Internal Medicine; Visit Provider Internal Medicine
DX: Z00.00 Encounter for general adult medical examination without abnormal findings (principal)

== ENCOUNTER → 2025-09-08 14:28 | Outpatient (BNV) | payer OTHER, SELFPAY | PROVIDERS: PCP Internal Medicine; Visit Provider Radiology Diagnostic Radiology | DX: Z22.7 Latent tuberculosis (principal) | CPT/HCPCS: 71046 ==